=== PATIENT | female | born 1975 | race Caucasian/White ===

== ENCOUNTER 2020-10-29 08:00 | Outpatient (RCR) | payer OTHER, SELFPAY ==
--- NOTE | 2020-09-30 18:05 | MHC.PT.EP ---
[facility] [place] [facility] [place] [facility] [place] [facility] [address] Imer Gracia [address] [phone] F: [phone] F: [phone] F: [phone] F: [phone] Physical Therapy Plan of Care Date of Evaluation: 09/30/20 Date of Surgery: NA Diagnosis: This is a 44 yo female presenting to skilled PT with a script for L side sciatica, other muscle spasm. Assessment: This is a 44 yo female presenting to skilled PT for L side sciatica, other muscle spasm. This patient went to the walk in clinic on 09/23 with left sided lower back pain that radiated down the left L. Her pain at the time had been ongoing for 3 weeks without noted injury. She reports that she gets this pain almost every 4 months. She was self managing her symptoms with her exercises at home in the past but it is not helping now. At [facility], she has only L side low back pain and has not had leg pain for 3 weeks. Her pain is described as pins and needles. Denies changes in bowel, bladder. Her daughter is here today to assist with eval however patient speaks Hungarian well (ge[place]ian background). She has had PT in the past about 6 years ago that was helpful. Her pain comes and goes. Assessment demos pain that ranges 0-6/10 with certain movements. She demos decreased L hip and glut strength, decreased lumbar ROM and hamstring length, decreased functional transfers (can do so I but has pain), elevated paraspinals on the R and decreased lumbar joint mobility. Functionally, she has been having trouble with bending to don/doff socks/shoes, bending, lifting and walking. She is a good candidate for skilled PT 2x/wk for 6wks based on anatomy, physical impairments, age and PT findings. Frequency and Duration: The patient will be seen 2x/wk for 6wks Short Term Goals: I in HEP Patient will report centralization of pain Patient will demo proper gait pattern without pain Residential Goals: Patient will demo proper lifting and squatting techniques without pain Patient will report no more than 2/10 pain at the worst Patient will improve oswestry 10 points Treatment Plan: Modalities to reduce pain, spasms and effusion. Manual therapy to restore motion and function. Therapeutic exercise to improve strength and flexibility. Neuromuscular re-education for posture and balance. Therapeutic activities to return to functional activities of daily living. Please sign and return to therapist. Thank you for your referral.
--- NOTE | 2020-11-02 11:01 | MHC.PT.DC ---
[facility] [place] [facility] [place] [facility] [place] Office [address] [phone] F: [phone] F: [phone] F: [phone] F: [phone] Physical Therapy Discharge Report Diagnosis: This is a 44 yo female presenting to skilled PT with a script for L side sciatica, other muscle spasm. Date of Surgery: NA Date of Evaluation: 09/30/20 Date of Discharge: 11/02/20 Treatments to Date: 7 Cancellations to Date: 0 No Shows to Date: 0 Discharge Status: Achieved Goals Improved Function Independent with HEP Patient Elected to Stop Discharge Summary: Pt progressing well with core stab, strength and L/S mobility. Has HEP to continue on own at home. Demos good mobility, strength and pain management. DC to HEP at this time. Electronically signed by: Jessie Nelson PT Please sign and return to therapist. Thank you for your referral.
== END 2020-11-05 11:57 | disposition home or self-care (01) ==
LOC: HO.PTCHIC 08:00
PROVIDERS: Visit Provider Nurse Practitioner Family
DX: M54.32 Sciatica, left side (principal); M62.838 Other muscle spasm
CPT/HCPCS: 97110; 97112; 97140; 97161

== ENCOUNTER 2021-02-03 10:26 | Outpatient (REF) | payer OTHER, SELFPAY ==
[2021-02-03 11:08] LABS: MANUAL DIFF FLAG NO
[2021-02-03 11:29] LABS: Hematocrit 37.4 % (37-47); Hemoglobin 12.6 g/dl (12.0-16.0); Lymphocytes Absolute Auto 1.3 X10*3/uL (1.2-4.9); Lymphocytes Percent Auto 34.7 % (20-40); Mean Corpuscular HGB Conc 33.7 g/dl (31.0-35.0); Mean Corpuscular Hemoglobin 29.2 pg (27.0-33.0); Mean Corpuscular Volume 86.8 fL (80-98); Mean Platelet Volume 10.5 fL (9.4-12.3); Monocytes Absolute Auto 0.3 X10*3/uL (0.1-1.2); Monocytes Percent Auto 7.2 % (2-11); Neutrophils Absolute Auto 2.1 X10*3/uL (2.0-8.3); Neutrophils Percent Auto 58.1 % (45-73); Platelet Count 184 X10*3/uL (160-400); Red Blood Count 4.31 X10*6/uL (4.20-5.50); Red Cell Distribution Width 12.3 % (11.0-16.0); White Blood Count 3.6 X10*3/uL (4.8-10.8)
[2021-02-03 11:34] LABS: Glucose Urine UA NEG (NEG); Leukocyte Esterase Urine NEG (NEG); Nitrite Urine NEG (NEG); Urine Blood 1+ (NEG); Urine Ketones NEG (NEG); Urine Protein NEG (NEG-TRACE)
[2021-02-03 11:39] LABS: Appearance Urine HAZY; Color Urine YELLOW
[2021-02-03 11:49] LABS: Mucus Urine 1+ /LPF; Squamous Epithelial Cell Urine 1+ /LPF; WBC Urine 0 /HPF (0-4)
[2021-02-03 11:56] LABS: Alanine Aminotransferase 17 U/L (0-31); Albumin Level 4.3 g/dL (3.5-5.0); Alkaline Phosphatase 66 U/L (39-117); Anion Gap 10 (12-20); Aspartate Amino Transferase 14 U/L (5-31); Bilirubin Total 0.4 mg/dL (0.0-1.0); Blood Urea Nitrogen 11 mg/dL (9-16); Calcium 8.7 mg/dL (8.4-10.2); Carbon Dioxide 27 mmol/L (22-29); Chloride 106 mmol/L (96-108); Cholesterol 197 mg/dL; Estimated Glomerular Filt Rate > 60; Glucose Fasting 99 mg/dL (60-99); HDL Cholesterol 57 mg/dL; LDL Cholesterol Calculated 125 mg/dl; Sodium 139 mmol/L (135-145); Total Protein 6.8 g/dL (6.5-8.0); Triglycerides 78 mg/dL
== END 2021-02-03 10:27 | disposition home or self-care (01) ==
LOC: HO.HMGCLDS 10:26
PROVIDERS: PCP Internal Medicine; Visit Provider Internal Medicine
DX: Z00.00 Encounter for general adult medical examination without abnormal findings (principal)
CPT/HCPCS: 36415; 80053; 80061; 81001; 85025

== ENCOUNTER 2021-03-17 10:03 | Outpatient (REF) | payer OTHER, SELFPAY ==
[2021-03-19 17:46] LABS: HPV mRNA E6/E7 Not Detected (Not Detected)
== END 2021-03-17 10:04 | disposition home or self-care (01) ==
LOC: HO.LAB 10:03
PROVIDERS: Visit Provider Internal Medicine
DX: Z01.419 Encounter for gynecological examination (general) (routine) without abnormal findings (principal); Z11.51 Encounter for screening for human papillomavirus (HPV)
CPT/HCPCS: 87624; 88142

== ENCOUNTER 2021-04-08 15:24 | Outpatient (REF) | payer OTHER, SELFPAY ==
--- NOTE | ~2021-04-08 | MM_ITS ---
EXAMINATION: MM SCREENING DIGITAL BREAST TOMOSYNTHESIS, BILATERAL CLINICAL INFORMATION: Screening. Asymptomatic. The lifetime risk of breast cancer based on the Tyrer-Cuzick Model is 10.6%. COMPARISON: Mammography: October 24, 2014 TECHNIQUE: Digital breast tomosynthesis is performed in both the craniocaudal and mediolateral oblique views along with computer-aided detection (CAD). Synthesized 2D images are generated from the tomosynthesis. FINDINGS: The breasts are extremely dense, which lowers the sensitivity of mammography (ACR BI-RADS breast composition Category d). There are no significant masses, abnormal calcifications, or other abnormalities. MM/MM tomosynthesis screening BI IMPRESSION: There are no significant changes from prior study. ASSESSMENT: BI-RADS 1: Negative RECOMMENDATION: Routine annual mammography screening. This patient's information was entered into a reminder system with a target due date for their next mammogram.
== END 2021-04-08 15:25 | disposition home or self-care (01) ==
LOC: HO.MAMMO 15:24
PROVIDERS: Visit Provider Internal Medicine
DX: Z12.31 Encounter for screening mammogram for malignant neoplasm of breast (principal)
CPT/HCPCS: 77063; 77067

== ENCOUNTER 2021-08-26 14:32 | Outpatient (REF) | payer OTHER, SELFPAY ==
--- NOTE | ~2021-08-26 | XR_ITS ---
EXAMINATION: XR KNEE, LEFT CLINICAL INFORMATION: Left knee pain. COMPARISON: 05/15/19. TECHNIQUE: Four views of the left knee. FINDINGS: Bones and soft tissues are normal. No fracture or joint effusion. Alignment is anatomic. Joint spaces are well maintained. No abnormal soft tissue calcification. XR/XR knee LT 2V IMPRESSION: Normal left knee.
== END 2021-08-26 14:33 | disposition home or self-care (01) ==
LOC: HO.HMGCX 14:32
PROVIDERS: PCP Internal Medicine; Visit Provider Internal Medicine
DX: Z13.89 Encounter for screening for other disorder (principal)
CPT/HCPCS: 73560

== ENCOUNTER 2022-02-04 09:50 | Outpatient (REF) | payer OTHER, SELFPAY ==
[2022-02-04 11:47] LABS: Hematocrit 36.8 % (37.0-47.0); Hemoglobin 11.9 g/dl (12.0-16.0); Mean Corpuscular HGB Conc 32.3 g/dl (31.0-35.0); Mean Corpuscular Hemoglobin 28.4 pg (27.0-33.0); Mean Corpuscular Volume 87.8 fL (80.0-98.0); Mean Platelet Volume 11.5 fL (9.4-12.3); Platelet Count 181 X10*3/uL (160-400); Red Blood Count 4.19 X10*6/uL (4.20-5.50); Red Cell Distribution Width 13.1 % (11.0-16.0); White Blood Count 4.2 X10*3/uL (4.8-10.8)
[2022-02-04 11:50] LABS: Appearance Urine TURBID; Color Urine YELLOW; Glucose Urine UA NEG (NEG); Leukocyte Esterase Urine 2+ (NEG); Nitrite Urine NEG (NEG); Specific Gravity - Urine >= 1.030 (1.005-1.025); Urine Blood 2+ (NEG); Urine Ketones NEG (NEG); Urine Protein NEG (NEG-TRACE)
[2022-02-04 12:11] LABS: Amorphous Sediment Urine 4+ /LPF; Squamous Epithelial Cell Urine 1+ /LPF
[2022-02-04 12:22] LABS: Alanine Aminotransferase 14 U/L (0-31); Albumin Level 4.3 g/dL (3.5-5.0); Alkaline Phosphatase 52 U/L (39-117); Anion Gap 10 (12-20); Aspartate Amino Transferase 15 U/L (5-31); Bilirubin Total 0.6 mg/dL (0.0-1.0); Blood Urea Nitrogen 15 mg/dL (9-16); Calcium 9.1 mg/dL (8.4-10.2); Carbon Dioxide 26 mmol/L (22-29); Chloride 107 mmol/L (96-108); Cholesterol 174 mg/dL; Estimated Glomerular Filt Rate > 60; Glucose Fasting 90 mg/dL (60-99); HDL Cholesterol 56 mg/dL; LDL Cholesterol Calculated 107 mg/dl; Potassium 3.9 mmol/L (3.3-5.1); Sodium 139 mmol/L (135-145); Total Protein 7.1 g/dL (6.5-8.0); Triglycerides 59 mg/dL
== END 2022-02-04 09:51 | disposition home or self-care (01) ==
LOC: HO.HMGCLDS 09:50
PROVIDERS: PCP Internal Medicine; Visit Provider Internal Medicine
DX: Z00.00 Encounter for general adult medical examination without abnormal findings (principal)
CPT/HCPCS: 36415; 80053; 80061; 81001; 85027

== ENCOUNTER 2022-12-27 13:24 | Outpatient (REF) | payer OTHER, SELFPAY ==
--- NOTE | ~2022-12-27 | MM_ITS ---
EXAMINATION: MM DIAGNOSTIC DIGITAL BREAST TOMOSYNTHESIS, BILATERAL US DIAGNOSTIC ULTRASOUND BREAST, RIGHT CLINICAL INFORMATION: 47-year-old with chronic palpable fullness noted by patient posterior upper outer right breast. Due for yearly. No known family history breast cancer. The lifetime risk of breast cancer based on the Tyrer-Cuzick Model is 11%. COMPARISON: Mammography: 04/26/2021; outside mammography 10/24/2014 ([facility]) TECHNIQUE: Digital breast tomosynthesis is performed in both the craniocaudal and mediolateral oblique views along with computer-aided detection (CAD). Synthesized 2D images are generated from the tomosynthesis. Ultrasound right breast is targeted to the area of clinical concern upper outer quadrant. Patient is imaged supine as well as sitting upright. Patient is able to point to area of concern at time of imaging. Additional imaging also performed to assess smooth benign-appearing nodule mid outer right breast. Grayscale imaging and color Doppler are performed without and with harmonics. FINDINGS: The breasts are heterogeneously dense, which may obscure small masses (ACR BI-RADS breast composition Category c). The parenchymal pattern appears similar to prior exam. There is no architectural abnormality or abnormal calcifications. There is no mammographic correlate for patient's clinical palpable concern. The axilla and skin contours are unremarkable. The left breast is unremarkable. Right breast has a circumscribed benign-appearing 1 cm oval nodule 9:00-10:00 position 4 cm from nipple, in retrospect likely chronic and partly obscured on prior mammogram. Ultrasound posterior upper outer right breast in the area of clinical palpable concern demonstrates macrolobulated hypoechoic mass posterior upper outer quadrant 7-8 cm from nipple and measuring 2.0 x 0.7 x 1.2 cm. There is no increased or decreased through transmission of sound. No definite associated color flow. Additional imaging in area of smooth benign-appearing nodule mid outer right breast fails to reveal a definite ultrasound correlate. Results are discussed with the patient at time of visit. Ultrasound-guided core biopsy of the ultrasound correlate for the palpable lesion is recommended. Finding may represent fibroadenoma, PASH, other lesion. The benign-appearing nodule mid outer right breast may be reassessed with imaging in 6 months. Results and recommendation are called to office ([facility]) for Dr. Lockett on 12/27/2022. MM/MM tomosynthesis diagnostic BI IMPRESSION: Right: -Macrolobulated nodule on targeted ultrasound corresponding to area of palpable concern measuring approximately 2.0 x 0.7 x 1.2 cm. Recommend ultrasound-guided core biopsy. -Smooth oval benign-appearing nodule more anterior lateral right breast without definite ultrasound correlate, likely chronic. Recommend follow-up mammography in 6 months. Left: -No mammographic evidence of malignancy. ASSESSMENT: BI-RADS 4: Suspicious RECOMMENDATION: -Ultrasound-guided core biopsy right breast mass. -Follow-up mammography in 6 months for probable benign nodule more anterior right breast. This patient's information was entered into a reminder system with a target due date for their next mammogram.
== END 2022-12-27 13:25 | disposition home or self-care (01) ==
LOC: HO.MAMMO 13:24
PROVIDERS: Visit Provider Obstetrics & Gynecology
DX: N63.11 Unspecified lump in the right breast, upper outer quadrant (principal)
CPT/HCPCS: 76642; 77062; 77066

== ENCOUNTER 2023-01-03 09:24 | Outpatient (REF) | payer OTHER, SELFPAY ==
--- NOTE | ~2023-01-03 | MM_ITS ---
PROCEDURE: US GUIDED BREAST BIOPSY, RIGHT CLINICAL INFORMATION: Hypoechoic lesion 10:00 position 9 cm from the nipple. COMPARISON: December 27, 2022 and April 08, 2021 PROCEDURAL DETAILS: The details of the procedure, as well as the risks, benefits, and alternatives to the procedure were explained to the patient in detail and all of her questions were answered, after which written informed consent was obtained. Site and side were confirmed. Prior to the procedure, sonography revealed a hypoechoic circumscribed lesion 10:00 position 9 cm from the nipple.. A time-out was performed, the lesion intended for biopsy was targeted, and the skin of the right breast was then prepped and draped in the usual sterile fashion. Using sonographic guidance, sterile technique, and 1% lidocaine without epinephrine for local anesthesia, multiple automated core biopsies were obtained through the targeted area with a 14G spring loaded Achieve core biopsy device. There was real-time confirmation of appropriate needle passage. Sampling was documented. At the completion of tissue sampling, a single open coil-shaped metallic clip was deposited at the biopsy site. There was no evidence of immediate complication. SPECIMEN: An appropriate sample was obtained. DIGITAL POST-PROCEDURE MAMMOGRAPHY: Breast density: The tissue is heterogeneously dense which may obscure small masses. BI-RADS version 5, category C. There are no new mammographic findings demonstrated. The postprocedure 2-view direct digital mammogram reveals clip in place. The patient tolerated the procedure well and, after assuring adequate hemostasis, was discharged in good condition after reviewing postbiopsy breast care instructions. Final pathology results are pending. MM/MM tomosynthesis diagnostic RT IMPRESSION: 1. No immediate complication from ultrasound-guided percutaneous biopsy right breast. 2. Ultrasound was used to localize and guide marker clip placement. 3. The 2-view direct digital postprocedure mammogram reveals satisfactory positioning of the biopsy clip. 4. Final pathology results are pending. A separate report with final recommendations will be issued once these results are made available.
[2023-01-03] MEDS: Lidocaine HCl 1 % 20 ML VIAL 10 ML SUBCUT (11:05)
== END 2023-01-03 09:25 | disposition home or self-care (01) ==
LOC: HO.MAMMO 09:24
PROVIDERS: PCP Internal Medicine; Visit Provider Surgery
DX: R92.8 Other abnormal and inconclusive findings on diagnostic imaging of breast (principal)
CPT/HCPCS: 19083; 77061; 77065; 88305; 99202; A4648

== ENCOUNTER → 2023-01-10 10:39 | Outpatient (BNVA) | payer OTHER, SELFPAY | PROVIDERS: PCP Internal Medicine; Visit Provider Surgery | DX: R92.8 Other abnormal and inconclusive findings on diagnostic imaging of breast (principal) | CPT/HCPCS: 99212 ==

== ENCOUNTER 2023-02-14 08:26 | Outpatient (REF) | payer OTHER, SELFPAY ==
[2023-02-14 11:38] LABS: Appearance Urine Clear; Color Urine Yellow; Glucose Urine UA Negative (Negative); Leukocyte Esterase Urine Small (1+) (Negative); Nitrite Urine Negative (Negative); Specific Gravity - Urine 1.025 (1.005-1.025); UMIC TRIGGER UA YES; Urine Blood Negative (Negative); Urine Ketones Negative (Negative); Urine Protein Negative (Neg-Trace)
[2023-02-14 11:44] LABS: MANUAL DIFF FLAG NO
[2023-02-14 11:48] LABS: Basophils Percent Auto 0.5 % (0-2); Eosinophils Absolute Auto 0.1 X10*3/uL (0.0-0.4); Eosinophils Percent Auto 1.5 % (0-4); Hematocrit 37.2 % (37.0-47.0); Hemoglobin 11.7 g/dl (12.0-16.0); Lymphocytes Absolute Auto 1.2 X10*3/uL (1.2-4.9); Lymphocytes Percent Auto 29.6 % (20-40); Mean Corpuscular HGB Conc 31.5 g/dl (31.0-35.0); Mean Corpuscular Hemoglobin 26.5 pg (27.0-33.0); Mean Corpuscular Volume 84.4 fL (80.0-98.0); Mean Platelet Volume 11.2 fL (9.4-12.3); Monocytes Absolute Auto 0.3 X10*3/uL (0.1-1.2); Monocytes Percent Auto 8.2 % (2-11); Neutrophils Absolute Auto 2.4 x10*3/uL (2.0-8.3); Neutrophils Percent Auto 60.2 % (45-73); Platelet Count 184 X10*3/uL (160-400); Red Blood Count 4.41 X10*6/uL (4.20-5.50)
[2023-02-14 11:58] LABS: Bacteria Urine None Seen (None Seen); Hyaline Casts Urine 0-2 /LPF (0-2); RBC Urine 0-2 /HPF (0-2); Squamous Epithelial Cell Urine 0-2 /HPF (0-2); WBC Urine 0-5 /HPF (0-5)
[2023-02-14 12:27] LABS: Alanine Aminotransferase 15 U/L (0-31); Albumin Level 4.3 g/dL (3.5-5.0); Alkaline Phosphatase 48 U/L (39-117); Anion Gap 10 (12-20); Aspartate Amino Transferase 15 U/L (5-31); Bilirubin Total 0.6 mg/dL (0.0-1.0); Blood Urea Nitrogen 11 mg/dL (9-16); Calcium 9.1 mg/dL (8.4-10.2); Carbon Dioxide 25 mmol/L (22-29); Chloride 108 mmol/L (96-108); Cholesterol 188 mg/dL; Estimated Glomerular Filt Rate > 60; Glucose Fasting 96 mg/dL (60-99); HDL Cholesterol 56 mg/dL; LDL Cholesterol Calculated 116 mg/dl; Potassium 4.3 mmol/L (3.3-5.1); Sodium 139 mmol/L (135-145); Total Protein 6.8 g/dL (6.5-8.0); Triglycerides 82 mg/dL
[2023-02-16 06:04] LABS: Triiodothyronine T3 Free 3.1 pg/mL (2.3-4.2)
== END 2023-02-14 08:27 | disposition home or self-care (01) ==
LOC: HO.HMGCLDS 08:26
PROVIDERS: PCP Internal Medicine; Visit Provider Internal Medicine
DX: Z00.00 Encounter for general adult medical examination without abnormal findings (principal); E05.00 Thyrotoxicosis with diffuse goiter without thyrotoxic crisis or storm; A04.8 Other specified bacterial intestinal infections; Z12.4 Encounter for screening for malignant neoplasm of cervix
CPT/HCPCS: 36415; 80053; 80061; 81001; 84443; 84481; 85025; 87338

== ENCOUNTER 2023-03-30 10:21 | Outpatient (REF) | payer OTHER, SELFPAY ==
--- NOTE | ~2023-03-30 | US_ITS ---
EXAMINATION: US THYROID CLINICAL INFORMATION: Nontoxic goiter COMPARISON: Ultrasound soft tissue head/neck thyroid dated 05/04/2017. TECHNIQUE: Linear transducer grayscale and color Doppler examination with attention to the region of the thyroid. FINDINGS: SIZE: Measurements of the thyroid lobes and nodules are given in sagittal, anteroposterior and transverse dimensions respectively. Right Thyroid Lobe: 5.7 x 2.4 x 2.2 cm, volume 15.8 mL. Previously 6.1 x 2.3 x 2.5 cm, volume 17.6 mL. Parenchyma: The gland echotexture is heterogeneous. Thyroid vascularity is increased. Left Thyroid Lobe: 4.8 x 1.6 x 1.6 cm, volume 6.4 mL. Previously 4.9 x 1.7 x 1.8 cm, volume 7.5 mL. Parenchyma: The gland echotexture is homogeneous. Thyroid vascularity is normal. Isthmus: 0.5 cm in maximum AP dimension. Previously 0.5 cm. No focal thyroid nodule is seen. NODES: No lymphadenopathy is seen in the tissue surrounding the thyroid gland. US/US thyroid IMPRESSION: 1. There is an asymmetric goiter, right lobe greater than left. 2. There is heterogeneous thyroid echotexture and increase in vascularity, which can be associated with thyroiditis. ACR TI-RADS RECOMMENDATION REFERENCE: Ultrasound-guided fine-needle aspiration, followup ultrasound, no further follow up. * TR1 (0 point) and TR2 (2 points): No FNA or follow up * TR3 (3 points): FNA if more than or equal to 2.5 cm in maximum dimension, followup ultrasound in 1, 3 and 5 years if 1.5 to 2.4 cm in maximum dimension. * TR4 (4-6 points): FNA if more than or equal to 1.5 cm in maximum dimension, followup ultrasound in 1, 2, 3 and 5 years if 1 to 1.4 cm in maximum dimension. * TR5 (more than or equal to 7 points): FNA if more than or equal to 1 cm in maximum dimension, followup ultrasound every year for 5 years if 0.5 to 0.9 cm in maximum dimension. * TR3, TR4 or TR5 nodules that are below the size threshold for follow up receive no follow up.
== END 2023-03-30 10:22 | disposition home or self-care (01) ==
LOC: HO.US 10:21
PROVIDERS: PCP Internal Medicine; Visit Provider Internal Medicine
DX: E04.9 Nontoxic goiter, unspecified (principal)
CPT/HCPCS: 76536

== ENCOUNTER → 2023-08-02 15:00 | Outpatient (BNV) | payer OTHER, SELFPAY | PROVIDERS: Visit Provider Radiology Diagnostic Radiology | DX: D24.1 Benign neoplasm of right breast (principal) | CPT/HCPCS: 76642; 77061; 77065 ==

== ENCOUNTER 2023-08-02 15:17 | Outpatient (REF) | payer OTHER, SELFPAY ==
--- NOTE | ~2023-08-02 | MM_ITS ---
EXAMINATION: MM DIAGNOSTIC DIGITAL BREAST TOMOSYNTHESIS, RIGHT US BREAST LIMITED, RIGHT MAMMOGRAPHY: CLINICAL INFORMATION: 6 month follow-up after benign biopsy right breast axillary tail region relating to fibroadenoma. COMPARISON: Mammography: Numerous priors, 01/03/2023, dating back to 12/27/2022. Right breast ultrasound biopsy to 01/03/2023. TECHNIQUE: Digital breast tomosynthesis is performed in both the craniocaudal and mediolateral oblique views along with computer-aided detection (CAD). Synthesized 2D images are generated from the tomosynthesis. FINDINGS: There are scattered areas of fibroglandular density (ACR BI-RADS breast composition Category b). There are no suspicious masses, suspicious grouped calcifications, or areas of architectural distortion. The parenchymal pattern is stable from prior exams. There is a biopsy clip in the far outer right breast, posterior one third, slightly upper location from benign biopsy. The index mass which was biopsied cannot be well distinguished on mammography. Ultrasound will be performed. ULTRASOUND: CLINICAL INFORMATION: Follow-up benign biopsy right axillary tail region. COMPARISON: 12/27/2022. TECHNIQUE: Targeted sonographic evaluation was performed using a high frequency linear transducer. Attention was paid specifically to the 10:00 axis, a CM from the nipple. Selected archived documentation. FINDINGS: RIGHT BREAST: There is a lobular hypoechoic mass in the right breast at the 10:00 axis, 8 cm from the nipple, containing an internal hyperechoic biopsy clip. This mass measures 1.6 x 1.4 x 0.6 cm. It correlates well with the abnormality seen on mammography. It is actually slightly smaller than previously, likely reflecting hormonal or biopsy related changes. Finding is benign. No further follow-up recommended. MM/MM tomosynthesis diagnostic RT IMPRESSION: Benign findings right breast. No further follow-up recommended. Recommend the patient return to annual screening. OVERALL ASSESSMENT: Mammography: BI-RADS 2 - Benign Findings Ultrasound: BI-RADS 2 - Benign Findings RECOMMENDATION: 1 year F/U Results were provided to the patient at time of visit by the technologist. This patient's information was entered into a reminder system with a target due date for their next mammogram.
== END 2023-08-02 15:18 | disposition home or self-care (01) ==
LOC: HO.MAMMO 15:17
PROVIDERS: Visit Provider Surgery
DX: R92.8 Other abnormal and inconclusive findings on diagnostic imaging of breast (principal)
CPT/HCPCS: 76642; 77061; 77065

== ENCOUNTER 2023-12-04 13:49 | Outpatient (AMB) | payer OTHER, SELFPAY ==
--- NOTE | 2023-12-04 13:55 | A.OFFPC_ITS ---
Vital Signs 12/04/23 13:57 Height 5 ft 3 in Weight 156 lb BMI 27.6 BP 138/78 Blood Pressure Location Lt brachial Position Sitting Pulse 113 H Pulse Source Pulse Oximeter Pulse Oximetry (%) 98 Oxygen Delivery Method Room Air Intake Visit Reasons: abdominal pain Intake Note: Pt is here today for a sick visit. Pt c/o abdominal pain. Pt states that she had polyp removed last year. Allergies No Known Allergies [No Known Allergies*] Allergy (Verified 12/04/23 13:57) Medication List - Last Reconciled 12/04/23 by Jany Lockett MD amoxicillin 1,000 mg (2 x 500 mg) PO Q12H 14 days clarithromycin 500 mg PO BID 14 days lorazepam 0.5 mg PO DAILY PRN metronidazole 500 mg PO BID omeprazole 20 mg PO BID Tobacco use date assessed: 12/04/23 Dental Screening Dental Screen Date: 12/04/23 Did you have a dental visit in the last 12 months?: Yes Did you have a dental problem in the last 6 months where you did not have access to dental care?: No Was dental information given to patient?: Patient has dentist HPI abdominal pain HPI Details Pt c/o lower abd pain for 2 months, crampy, constipation on and off, getting worse over last 2 weeks. Patient denies hematochezia melena nausea vomit fever chills dysuria but noticed increased urinary frequency. Patient reports difficulty swallowing and odynophagia when eating peanuts or some solids. She had thyroid ultrasound done by residential electrician in May and was told it was normal. Patient denies GERD symptoms. She took H pylori treatment with amoxicillin clarithromycin and metronidazole for 5 days only but developed diarrhea and discontinued medications. [facility] Medical History Allergic rhinitis Annual physical exam Dysplastic nevi Gastritis Graves disease Helicobacter pylori gastritis Knee pain, left Normal Pap smear Palpitations Family History (Updated 02/14/23 @ 09:14 by MIKEY Vásquez) Father No problems noted. Mother No problems noted. 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 1. Little interest or pleasure in doing things: not at all 2. Feeling down, depressed, or hopeless: not at all 3. Trouble falling or staying asleep, or sleeping too much: not at all 4. Feeling tired or having little energy: not at all 5. Poor appetite or overeating: not at all 6. Feeling bad about yourself - or that you are a failure or have let yourself or your family down: not at all 7. Trouble concentrating on things, such as reading the newspaper or watching television: not at all 8. Moving or speaking so slowly that other people could have noticed. Or the opposite - being so fidgety or restless that you have been moving around a lot more than usual: not at all 9. Thoughts that you would be better off or of hurting yourself in some way: not at all Total score: 0 Depression Screening Interpretation: Negative Depression Screening Done: Yes Source: Developed by Drs. Sb Esparza, Breanna Echavarria, Justin Gamez and colleagues, with an educational damion from [employer]. Thrive Questionnaire Date Thrive assessed: 12/04/23 I am a: Patient What is your living situation today?: I have a steady place to live Within the past 12 months, did the food you bought not last and you didn't have the money to get more?: Never true Within the past 12 months, did you worry whether your food would run out before you got money to buy more?: Never true Do you have trouble paying for medicines?: No Do you have trouble getting transportation to medical appointments?: No Do you have trouble paying your heating and electricity bill?: No Do you have trouble taking care of your child, family member or friend?: No Do you have trouble with day-to-day activities such as bathing, preparing meals, shopping, managing finances, etc.?: No Are you currently unemployed and looking for a job?: No Are you interested in more education?: No Please select the resources that you would like help with: None Currently or been in a relationship where the following occur: no concerns reported AUDIT C Alcohol Use Questionnaire (AUDIT-C) 1. How often do you have a drink containing alcohol?: Never 3. How often do you have six or more drinks on one occasion?: Never Total Score: 0 AMIRA-7 AMB Questionnaire AMIRA-7 Date AMIRA - 7 assessed: 12/04/23 Feeling nervous, anxious, or on edge: 0 = Not at all Not being able to stop or control worryin = Not at all Worrying too much about different things: 0 = Not at all Trouble relaxin = Not at all Being so restless that it is hard to sit still: 0 = Not at all Becoming easily annoyed or irritable: 0 = Not at all Feeling afraid as if something awful might happen: 0 = Not at all Total AMIRA-7 score (0-4 normal; 5-9 mild; 10-14 moderate; 15-21 severe): 0 Source: Developed by Drs. Sb Esparza, Breanna Echavarria, Justin Gamez and colleagues, with an educational damion from [employer]. Review of Systems Const All systems reviewed & are unremarkable except as noted in HPI and below Reports no additional complaints Eyes Reports no additional complaints ENT Reports no additional complaints Card Reports no additional complaints Resp Reports no additional complaints GI Reports no additional complaints Reports no additional complaints Physical exam (Primary Care) Vital Signs: Last Vital Signs Pulse 113 H 12/04/23 13:57 BP 138/78 12/04/23 13:57 Pulse Ox 98 12/04/23 13:57 Oxygen Delivery Method Room Air 12/04/23 13:57 BMI result Body Mass Index 27.6 Tobacco/Smoking Status: Tobacco use Status Tobacco use date assessed 12/04/23 12/04/23 14:00 Patient Tobacco Use Status Never used Tobacco 12/04/23 14:00 e-Cigarette/Vaping Use Never Used 12/04/23 13:57 PHQ-9: PHQ-9 Score PHQ-9: Total score 0 12/04/23 14:31 Depression Screening Interpretation: Negative Thrive Assessment: Date of Thrive Assessment Date Thrive assessed 12/04/23 12/04/23 14:00 Currently or been in a relationship where the following occur: no concerns reported Const General: no acute distress HENMT Head: Yes normal to inspection Face and sinus: Yes normal facial exam Eyes General: appearance normal, both eyes and all related structures Neck Neck: Yes no lymphadenopathy and Yes supple Resp Effort & Inspection: normal respiratory effort Auscultation: clear to auscultation bilaterally Cardio Rhythm: regular rhythm Heart sounds: S1 normal heart sound present and S2 normal heart sound present GI Other: Left lower quadrant tenderness no rebound or guarding Inspection: Yes normal to inspection Palpation (GI): Soft to palpation Percussion: Yes normal to percussion Auscultation: normal bowel sounds Assessment and Plan Assessment & Plan (1) Odynophagia: Code(s): R13.10 - Dysphagia, unspecified Plan: Obtain barium swallow to evaluate. Patient had normal EGD in January 2019 (2) Diverticulitis: Code(s): K57.92 - Diverticulitis of intestine, part unspecified, without perforation or abscess without bleeding Plan: Obtain abdominal and pelvic CT to evaluate for diverticulitis. Patient will return for fasting blood work, urinalysis and urine culture. She will follow-up in 1 month (3) H. pylori infection: Comment: Diagnosed on endoscopy 2018, patient took amoxicillin clarithromycin metronidazole for 5 days, 07/2023, could not tolerate longer treatment because of diarrhea Code(s): A04.8 - Other specified bacterial intestinal infections Plan: Obtain stool studies for H pylori (4) Graves disease: Comment: f/u with Endo , off meds , TSH Q 3 months 02/15 Code(s): E05.00 - Thyrotoxicosis with diffuse goiter without thyrotoxic crisis or storm Plan: Check TSH, follow-up with endocrinology (5) Hx of colonoscopy: Comment: 01/2019, normal Dr. Greer Code(s): Z98.890 - Other specified postprocedural states Orders: Orders [place] upper GI w Ba Swallow Today R13.10 - Dysphagia, unspecified CT abdomen pelvis wo IV con Today K57.92 - Diverticulitis of intestine, part unspecified, without perforation or abscess without bleeding Coding Level of Care Code Est Pt Level 4 (85123) Diagnoses Odynophagia R13.10 Diverticulitis K57.92 H. pylori infection A04.8 Graves disease E05.00 Hx of colonoscopy Z98.890
[2023-12-04 13:57] VITALS: BP 138/78; PULSE 113; O2SAT 98; BMI 27.6
== END 2023-12-04 14:55 | disposition home or self-care (01) ==
PROVIDERS: PCP Internal Medicine; Visit Provider Internal Medicine
DX: R13.10 Dysphagia, unspecified (principal); K57.92 Diverticulitis of intestine, part unspecified, without perforation or abscess without bleeding; A04.8 Other specified bacterial intestinal infections; E05.00 Thyrotoxicosis with diffuse goiter without thyrotoxic crisis or storm; Z98.890 Other specified postprocedural states
CPT/HCPCS: 99214

== ENCOUNTER 2023-12-05 11:19 | Outpatient (REF) | payer OTHER, SELFPAY ==
--- NOTE | ~2023-12-05 | CT_ITS ---
EXAMINATION: CT ABDOMEN AND PELVIS WITH CONTRAST CLINICAL INFORMATION: Diverticulitis of colon. Abdominal pain. COMPARISON: None available. TECHNIQUE: Multidetector volumetric images were obtained from the superior aspect of the liver through the pubic symphysis following administration 85 mL of Omnipaque 350 intravenous contrast. Sagittal and coronal reformatted images were obtained on the technologist's workstation. Oral contrast: No This CT examination was performed using dose optimization techniques as appropriate, variously including the following: *Automated exposure control *Adjustment of mA and/or kV according to patient size (this includes techniques or standardized protocols for targeted exams where dose is matched to indication/reason for exam; i.e. extremities or head) *Use of iterative reconstruction technique DLP: 304 mGy-cm FINDINGS: LUNG BASES: The lung bases are clear. The heart size is normal. LIVER, GALLBLADDER, AND BILIARY TREE: The liver is normal in size, shape, and attenuation. No focal hepatic lesion or biliary ductal dilatation is present. The gallbladder is unremarkable with no evidence of radiopaque gallstones, gallbladder wall thickening, or obvious pericholecystic inflammatory changes. PANCREAS: Unremarkable. SPLEEN: The spleen is 12 cm in length and appears unremarkable. ADRENAL GLANDS: Unremarkable. KIDNEYS AND URETERS: The kidneys are normal in size, shape, and attenuation. No hydronephrosis, hydroureter, or calculi seen. No perinephric stranding. BLADDER: Unremarkable. GASTROINTESTINAL TRACT: Scattered stool and gas and oral contrast seen throughout the colon without distention. The small bowel loops are normal caliber. Appendix is long but normal caliber. The stomach is nondistended with oral contrast and ingested food. ABDOMINAL WALL: No significant hernia is appreciated. LYMPH NODES: Normal. VASCULAR: Unremarkable. PELVIC VISCERA: The uterus is retroverted with bilateral ovarian cysts and minimal left periovarian fluid collection right ovarian cyst is bilobed with a larger component measuring 2.8 cm and the left ovarian cyst measures 3.4 cm. There is no free fluid in the cul-de-sac. There is a small hypodensity anterior to the left hip joint in the iliopsoas muscle question ileus was bursitis. OSSEOUS STRUCTURES: No aggressive lytic or sclerotic process. CT/CT abdomen pelvis w IV con IMPRESSION: 1. No acute intra-abdominal process seen. 2. Mild constipation. Normal appendix. 3. Retroverted uterus with bilateral ovarian cysts. 4. Left iliopsoas bursitis Fleischner guidelines were followed.
[2023-12-05 13:37] LABS: Blood Urea Nitrogen 12 mg/dL (9-16); Estimated Glomerular Filt Rate > 60
[2023-12-05] MEDS: Barium Sulfate Oral (Berry) 450 ML ORAL.SUSP 900 ML PO (13:45)
[2023-12-05] MEDS: iohexoL 350 MG/ML 100 ML INFUS..BTL IV (13:46)
== END 2023-12-05 11:20 | disposition home or self-care (01) ==
LOC: HO.CT 11:19
PROVIDERS: PCP Internal Medicine; Visit Provider Internal Medicine
DX: K57.92 Diverticulitis of intestine, part unspecified, without perforation or abscess without bleeding (principal)
CPT/HCPCS: 36415; 74177; 82565; 84520; Q9967

== ENCOUNTER 2023-12-26 07:59 | Outpatient (REF) | payer OTHER, SELFPAY ==
--- NOTE | ~2023-12-26 | FL_ITS ---
EXAMINATION: FL BARIUM SWALLOW CLINICAL INFORMATION: Dysphagia/globus sensation. History of thyroidectomy COMPARISON: None TECHNIQUE: Fluoroscopic air contrast upper GI examination was performed utilizing standard techniques with thin and thick barium and effervescent granules. Numerous spot images were obtained. FINDINGS: Lateral cine images of the oropharynx and hypopharynx demonstrate normal swallow mechanism with normal epiglottic inversion and soft palate elevation. No tracheal penetration, glottic or subglottic aspiration identified. No nasopharyngeal reflux present. Hypopharyngeal structures appear normal without evidence of mass or diverticulum. There was no significant cricopharyngeal achalasia. Dual and single contrast images of the esophagus demonstrate normal caliber, contour, and mucosal pattern. No evidence of stricture, mass, or ulcerations identified. Esophageal peristalsis was normal. No evidence of hiatus hernia identified. No significant gastroesophageal reflux was seen during the course of the examination and on reflux views. FLUOROSCOPY TIME: 2 minutes 22 seconds Number of Spot Images: 5 Number of Cine: 6 DOSE AREA PRODUCT: 968.9 uGy-m2 (microgray-meter squared) FL/FL upper GI w Ba Swallow IMPRESSION: Unremarkable esophagram This procedure was performed by Almas Ramirez PA-C, and supervised by Dr. Urbina
== END 2023-12-26 08:00 | disposition home or self-care (01) ==
LOC: HO.XRAY 07:59
PROVIDERS: PCP Internal Medicine; Visit Provider Internal Medicine
DX: R13.10 Dysphagia, unspecified (principal)
CPT/HCPCS: 74240

== ENCOUNTER → 2023-12-26 08:00 | Outpatient (BNV) | payer OTHER, SELFPAY | PROVIDERS: PCP Internal Medicine; Visit Provider Radiology Diagnostic Radiology | DX: R13.10 Dysphagia, unspecified (principal) | CPT/HCPCS: 74246 ==

== ENCOUNTER 2024-02-19 07:53 | Outpatient (AMB) | payer OTHER, SELFPAY ==
[2024-02-19 07:58] VITALS: BP 124/80; PULSE 92; O2SAT 99; BMI 28.7
--- NOTE | 2024-02-19 07:58 | A.OFFPC_ITS ---
Vital Signs 02/19/24 07:58 Height 5 ft 3 in Weight 162 lb BMI 28.7 BP 124/80 Blood Pressure Location Lt brachial Position Sitting Pulse 92 Pulse Source Pulse Oximeter Pulse Oximetry (%) 99 Oxygen Delivery Method Room Air Intake Visit Reasons: Annual PE Intake Note: Pt is here today for PE. Allergies No Known Allergies [No Known Allergies*] Allergy (Verified 02/19/24 07:59) Medication List - Last Reconciled 02/19/24 by Jany Lockett MD lorazepam 0.5 mg PO DAILY PRN Tobacco use date assessed: 02/19/24 Dental Screening Dental Screen Date: 02/19/24 Did you have a dental visit in the last 12 months?: Yes Did you have a dental problem in the last 6 months where you did not have access to dental care?: No Was dental information given to patient?: Patient has dentist HPI Annual PE HPI Details Patient presents for physical. She complains of persistent sweet taste in her mouth for 6 months and episodes of upper esophageal dysphagia after eating a piece of dry bread or nuts. Patient had normal esophagram. She denies abdominal pain nausea vomiting. Patient did not complete a course of antibiotic treatment for H pylori and has not done a stool antigen test yet. [facility] Medical History Allergic rhinitis Annual physical exam Dysplastic nevi Gastritis Graves disease Helicobacter pylori gastritis Knee pain, left Normal Pap smear Palpitations Family History Father No problems noted. Mother No problems noted. 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 How often do you have a drink containing alcohol?: Never 3. How often do you have six or more drinks on one occasion?: Never Total Score: 0 AMIRA-7 AMB Questionnaire AMIRA-7 Date AIMRA - 7 assessed: 12/04/23 Source: Developed by Drs. Sb Esparza, Breanna Echavarria, Justin Gamez and colleagues, with an educational damion from [employer]. Review of Systems Const All systems reviewed & are unremarkable except as noted in HPI and below Reports no additional complaints Eyes Reports no additional complaints ENT Reports no additional complaints Card Reports no additional complaints Resp Reports no additional complaints GI Reports no additional complaints Reports no additional complaints Physical exam (Primary Care) Vital Signs: Last Vital Signs Pulse 92 02/19/24 07:58 BP 124/80 02/19/24 07:58 Pulse Ox 99 02/19/24 07:58 Oxygen Delivery Method Room Air 02/19/24 07:58 BMI result Body Mass Index 28.7 Tobacco/Smoking Status: Tobacco use Status Tobacco use date assessed 02/19/24 02/19/24 08:07 Patient Tobacco Use Status Never used Tobacco 02/19/24 08:07 e-Cigarette/Vaping Use Never Used 02/19/24 08:07 Thrive Assessment: Date of Thrive Assessment Date Thrive assessed 12/04/23 02/19/24 08:07 Const General: no acute distress HENMT Head: Yes normal to inspection Ears: hearing grossly normal bilaterally General nose exam: Normal external nose present Mouth: Normal oral and palatal mucosa present Throat: Yes posterior oropharynx normal Eyes General: appearance normal, both eyes and all related structures Neck Neck: Yes no lymphadenopathy and Yes supple Resp Effort & Inspection: normal respiratory effort Auscultation: clear to auscultation bilaterally Cardio Rhythm: regular rhythm Heart sounds: S1 normal heart sound present and S2 normal heart sound present GI Inspection: Yes normal to inspection Palpation (GI): Soft to palpation Percussion: Yes normal to percussion Auscultation: normal bowel sounds Assessment and Plan Assessment & Plan (1) H. 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 she is up-to-date with the mammogram colonoscopy and Pap smear Orders: Orders Comprehensive [place]. Panel Fast Today R13.13 - Dysphagia, pharyngeal phase, Z00.00 - Encounter for general adult medical examination without abnormal findings Complete Blood Count Auto Diff Today R13.13 - Dysphagia, pharyngeal phase, Z00.00 - Encounter for general adult medical examination without abnormal findings Lipid Panel Today R13.13 - Dysphagia, pharyngeal phase, Z00.00 - Encounter for general adult medical examination without abnormal findings H pylori Ag Stool Today A04.8 - Other specified bacterial intestinal infections, N83.209 - Unspecified ovarian cyst, unspecified side UA w Microscopic Today R13.13 - Dysphagia, pharyngeal phase, Z00.00 - Encounter for general adult medical examination without abnormal findings Referrals Gastroenterology Referral R13.13 - Dysphagia, pharyngeal phase, Z00.00 - Encounter for general adult medical examination without abnormal findings Ear/Nose/Throat Referral R13.13 - Dysphagia, pharyngeal phase, Z00.00 - Encounter for general adult medical examination without abnormal findings Coding Level of Care Code Est Pt Prev Care 40-64y(35183) Diagnoses H. pylori infection A04.8 Ovarian cyst N83.209 Pharyngeal dysphagia R13.13 Annual physical exam Z00.00
== END 2024-02-19 09:47 | disposition home or self-care (01) ==
PROVIDERS: Visit Provider Internal Medicine
DX: Z00.00 Encounter for general adult medical examination without abnormal findings (principal); A04.8 Other specified bacterial intestinal infections; N83.209 Unspecified ovarian cyst, unspecified side; R13.13 Dysphagia, pharyngeal phase
CPT/HCPCS: 99396

== ENCOUNTER 2024-02-19 08:51 | Outpatient (REF) | payer OTHER, SELFPAY ==
[2024-02-19 11:18] LABS: MANUAL DIFF FLAG NO
[2024-02-19 11:33] LABS: Basophils Percent Auto 0.4 % (0-2); Eosinophils Absolute Auto 0.1 X10*3/uL (0.0-0.4); Eosinophils Percent Auto 2.6 % (0-4); Hematocrit 36.8 % (37.0-47.0); Hemoglobin 11.6 g/dl (12.0-16.0); Imm Gran Abs Auto 0.02 X10*3/uL (0.00-0.03); Imm Gran Pct Auto 0.4 % (0.0-0.4); Lymphocytes Absolute Auto 1.4 X10*3/uL (1.2-4.9); Lymphocytes Percent Auto 27.9 % (20-40); Mean Corpuscular HGB Conc 31.5 g/dl (31.0-35.0); Mean Corpuscular Hemoglobin 26.4 pg (27.0-33.0); Mean Corpuscular Volume 83.8 fL (80.0-98.0); Mean Platelet Volume 11.5 fL (9.4-12.3); Monocytes Absolute Auto 0.4 X10*3/uL (0.1-1.2); Monocytes Percent Auto 7.5 % (2-11); Neutrophils Percent Auto 61.2 % (45-73); Platelet Count 197 X10*3/uL (160-400); Red Blood Count 4.39 X10*6/uL (4.20-5.50); Red Cell Distribution Width 13.8 % (11.0-16.0); White Blood Count 4.9 X10*3/uL (4.8-10.8)
[2024-02-19 12:12] LABS: Appearance Urine Clear; Color Urine Yellow; Glucose Urine UA Negative (Negative); Leukocyte Esterase Urine Small (1+) (Negative); Nitrite Urine Negative (Negative); UMIC TRIGGER UA YES; Urine Blood Negative (Negative); Urine Ketones Negative (Negative); Urine Protein Negative (Neg-Trace)
[2024-02-19 12:28] LABS: Bacteria Urine 1+ (None Seen); Hyaline Casts Urine 0-2 /LPF (0-2); RBC Urine 0-2 /HPF (0-2); WBC Urine 0-5 /HPF (0-5)
[2024-02-19 12:51] LABS: Alanine Aminotransferase 21 U/L (0-31); Albumin Level 4.2 g/dL (3.5-5.0); Alkaline Phosphatase 59 U/L (39-117); Anion Gap 11 (12-20); Aspartate Amino Transferase 17 U/L (5-31); Bilirubin Total 0.4 mg/dL (0.0-1.0); Blood Urea Nitrogen 13 mg/dL (9-16); Calcium 9.1 mg/dL (8.4-10.2); Carbon Dioxide 26 mmol/L (22-29); Chloride 106 mmol/L (96-108); Cholesterol 204 mg/dL (<200); Estimated Glomerular Filt Rate > 60; Glucose Fasting 95 mg/dL (60-99); HDL Cholesterol 61 mg/dL (>40); LDL Cholesterol Calculated 114 mg/dL (<100); Sodium 139 mmol/L (135-145); Total Protein 7.2 g/dL (6.5-8.0); Triglycerides 148 mg/dL (<150)
== END 2024-02-19 08:52 | disposition home or self-care (01) ==
LOC: HO.HMGCLDS 08:51
PROVIDERS: PCP Internal Medicine; Visit Provider Internal Medicine
DX: Z00.00 Encounter for general adult medical examination without abnormal findings (principal); R13.13 Dysphagia, pharyngeal phase
CPT/HCPCS: 36415; 80053; 80061; 81001; 85025

== ENCOUNTER 2024-03-13 07:55 | Outpatient (REF) | payer OTHER, SELFPAY | END 2024-03-13 07:56 | disposition home or self-care (01) | LOC: HO.HMGCLNP 07:55 | PROVIDERS: PCP Internal Medicine; Visit Provider Internal Medicine | DX: A04.8 Other specified bacterial intestinal infections (principal); N83.209 Unspecified ovarian cyst, unspecified side | CPT/HCPCS: 87338 ==

== ENCOUNTER 2024-04-24 08:05 | Outpatient (AMB) | payer OTHER, SELFPAY ==
[2024-04-24 08:14] VITALS: BP 122/76; PULSE 85; TEMP 36.7; O2SAT 98; BMI 29.1
--- NOTE | 2024-04-24 08:14 | AM.OFFWIN_ITS ---
Intake Vital Signs 04/24/24 08:14 Height 5 ft 3 in Weight 164 lb 3 oz BMI 29.1 BP 122/76 Blood Pressure Location Lt brachial Position Sitting Pulse 85 Pulse Source Pulse Oximeter Temp 98.1 F Temp Source Oral Pulse Oximetry (%) 98 Oxygen Delivery Method Room Air Intake Visit Reasons: EP Coughing 1 week Intake Note: Pt is here today for ongoing cough for a wk Patient Tobacco Use Status: Never used Tobacco Allergies No Known Allergies [No Known Allergies*] Allergy (Verified 02/19/24 07:59) HPI HPI Comments History of Present Illness Details 48 y/o female [facility]o productive cough x 1 week. She has not used any OTC remedies. [facility] Medical History Allergic rhinitis Annual physical exam Dysplastic nevi Gastritis Graves disease Helicobacter pylori gastritis Knee pain, left Normal Pap smear Palpitations Family History Father No problems noted. Mother No problems noted. 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 Alcohol intake: never Patient Tobacco Use Status: Never used Tobacco e-Cigarette/Vaping Use: Never Used service: No Current occupational status: employed Cognitive needs: No Hearing needs: No Vision needs: No Female Reproductive History Menstrual Age of Menarche: 16 Review of Systems Const All systems reviewed & are unremarkable except as noted in HPI and below Physical Exam Vital Signs: Last Vital Signs Temp 98.1 F 04/24/24 08:14 Pulse 85 04/24/24 08:14 BP 122/76 04/24/24 08:14 Pulse Ox 98 04/24/24 08:14 Oxygen Delivery Method Room Air 04/24/24 08:14 BMI result Body Mass Index 29.1 Const General: comfortable and no acute distress Orientation/consciousness: patient oriented x3 HEENT Head: Yes normocephalic Ears: external ears normal and TM's normal bilaterally Mouth: moist mucous membranes Throat: Yes tonsils normal and Yes uvula midline Resp Effort & Inspection: normal respiratory effort, able to speak in complete sentences and Actively coughing Auscultation: clear to auscultation bilaterally, no crackles, no rales, no rhonchi and no wheezes Cardio Rate: regular rate Rhythm: regular rhythm Neuro General: patient oriented x3 Assessment & Plan Assessment & Plan (1) Bronchitis: Code(s): J40 - Bronchitis, not specified as acute or chronic Plan: - Rest and hydrate with warm fluids - OTC cough remedies. Medications: New azithromycin 500 mg PO DAILY 3 tabs 0RF 3 days J40 - Bronchitis, not specified as acute or chronic benzonatate 100 mg PO TID 30 caps 0RF J40 - Bronchitis, not specified as acute or chronic, R05.9 - Cough, unspecified Coding Level of Care Code Est Pt Level 3 (56455) Diagnoses Bronchitis J40 Time Spent (min) 15
== END 2024-04-24 08:40 | disposition home or self-care (01) ==
PROVIDERS: PCP Internal Medicine; Visit Provider Nurse Practitioner Family
DX: J40 Bronchitis, not specified as acute or chronic (principal)
CPT/HCPCS: 99213

== ENCOUNTER 2024-05-14 08:20 | Outpatient (AMB) | payer OTHER, SELFPAY ==
--- NOTE | 2024-05-14 08:27 | A.OFFVIS_ITS ---
Vital Signs 05/14/24 08:28 Height 5 ft 3 in Weight 160 lb 14.999 oz BMI 28.5 BP 147/74 H Blood Pressure Location Lt brachial Position Sitting Pulse 80 Intake Visit Reasons: Screening Colonoscopy Intake Note: Ama presents in the office as a new patient for a screening for a colonoscopy. CC: She states that her last colo was 5 years ago. She states that she feels like she has something stuck in her throat/esophagus. She has different tastes in her throat and mouth and she feels like it is coming from her stomach. [facility] Director Required: No Allergies No Known Allergies [No Known Allergies*] Allergy (Verified 02/19/24 07:59) HPI HPI Screening Colonoscopy: Details: 48-year-old female here for initial evaluation of dysphagia. She is referred by Jany Lockett of [facility] primary care. PMX Allergic rhinitis Graves disease History of H pylori gastritis History of dysplastic nevi History of diverticulitis - pt ont sure Ovarian cysts * SURGICAL HISTORY EGD/colonoscopy-2019, Charli normal study/H pylori Uterine polyp removal * ALLERGIES: NKDA * [employer] LABS: Laboratory Tests 02/19/24 09:10 WBC 4.9 Hgb 11.6 L Hct 36.8 L MCV 83.8 MCH 26.4 L Plt Count 197 Estimated GFR > 60 Total Bilirubin 0.4 AST 17 ALT 21 Alkaline Phosphatase 59 UPPER GI STUDY 12/26/23 FINDINGS: Lateral cine images of the oropharynx and hypopharynx demonstrate normal swallow mechanism with normal epiglottic inversion and soft palate elevation. No tracheal penetration, glottic or subglottic aspiration identified. No nasopharyngeal reflux present. Hypopharyngeal structures appear normal without evidence of mass or diverticulum. There was no significant cricopharyngeal achalasia. Dual and single contrast images of the esophagus demonstrate normal caliber, contour, and mucosal pattern. No evidence of stricture, mass, or ulcerations identified. Esophageal peristalsis was normal. No evidence of hiatus hernia identified. No significant gastroesophageal reflux was seen during the course of the examination and on reflux views. FLUOROSCOPY TIME: 2 minutes 22 seconds Number of Spot Images: 5 Number of Cine: 6 DOSE AREA PRODUCT: 968.9 uGy-m2 (microgray-meter squared) FL/FL upper GI w Ba Swallow IMPRESSION: Unremarkable esophagram CT ABDOMEN AND PELVIS 12/05/23 FINDINGS: LUNG BASES: The lung bases are clear. The heart size is normal. LIVER, GALLBLADDER, AND BILIARY TREE: The liver is normal in size, shape, and attenuation. No focal hepatic lesion or biliary ductal dilatation is present. The gallbladder is unremarkable with no evidence of radiopaque gallstones, gallbladder wall thickening, or obvious pericholecystic inflammatory changes. PANCREAS: Unremarkable. SPLEEN: The spleen is 12 cm in length and appears unremarkable. ADRENAL GLANDS: Unremarkable. KIDNEYS AND URETERS: The kidneys are normal in size, shape, and attenuation. No hydronephrosis, hydroureter, or calculi seen. No perinephric stranding. BLADDER: Unremarkable. GASTROINTESTINAL TRACT: Scattered stool and gas and oral contrast seen throughout the colon without distention. The small bowel loops are normal caliber. Appendix is long but normal caliber. The stomach is nondistended with oral contrast and ingested food. ABDOMINAL WALL: No significant hernia is appreciated. LYMPH NODES: Normal. VASCULAR: Unremarkable. PELVIC VISCERA: The uterus is retroverted with bilateral ovarian cysts and minimal left periovarian fluid collection right ovarian cyst is bilobed with a larger component measuring 2.8 cm and the left ovarian cyst measures 3.4 cm. There is no free fluid in the cul-de-sac. There is a small hypodensity anterior to the left hip joint in the iliopsoas muscle question ileus was bursitis. OSSEOUS STRUCTURES: No aggressive lytic or sclerotic process. CT/CT abdomen pelvis w IV con IMPRESSION: 1. No acute intra-abdominal process seen. 2. Mild constipation. Normal appendix. 3. Retroverted uterus with bilateral ovarian cysts. 4. Left iliopsoas bursitis TODAY'S VISIT She has been having LLQ pain and some RB on TT. This started about 5-6 mos ago. She also has ovarian cysts that are a confounding factor. She has it about q 2 mos to monthly. She really struggles to move her bowels, they are very hard and she has to push. She see blood on the TT and filling the bowel red. No rectal pain or itching. The pain is described as a stretching/pressure pain at 9/10 and is relieved by taking 3 ibuprofen. She has tried to increase her fiber w/o good relief. She has not tried any OTC medication. She had one episode of bending to tie her shoes and the pain occurred severely, and she could not move her bowels. She has a strange taste in her mouth that alternates between a sweet taste and salty taste. She also has dysphagia of dry foods at times above the sternal notch and at times mid sternally. She at times has to cough back up the piece of food. This has been over 5-6 mos. I ask if she has had any sinus issues and she does have chronic allergies so I wonder if this sweet salty taste is coming from postnasal drip. No recent medication changes, no diet changes, no abx use. She did have a hx of H pylori, and was given 3 antibiotics but she stopped after 3 days r/t diarrhea. There is no known FHX of similar sx. Get TSH as she is not on medication she stopped it 2 years ago, has a hx of Graves disease. She took methamazole but to her knowledge she did not have radioactive iodine or surgery. ROV 6 weeks. [facility] Medical History (Updated 05/14/24 @ 09:02 by REJI Tse) H. pylori infection Normal pelvic exam Normal Pap smear Annual physical exam Palpitations Dysplastic nevi Knee pain, left Gastritis Graves disease Helicobacter pylori gastritis Allergic rhinitis Surgical History Hx of colonoscopy History of esophagogastroduodenoscopy (EGD) Family History Father No problems noted. Mother No problems noted. 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 Alcohol intake: never Patient Tobacco Use Status: Never used Tobacco e-Cigarette/Vaping Use: Never Used service: No Current occupational status: employed Cognitive needs: No Hearing needs: No Vision needs: No Female Reproductive History Menstrual Age of Menarche: 16 Review of Systems Const Denies fatigue, Denies fever(s), Denies night sweats, Denies poor appetite and Denies weight loss ENT Reports Normal hearing present, Denies dental pain, Reports dysphagia, Denies hearing loss, Denies mouth pain, Reports odynophagia, Denies throat swelling, Denies tongue swelling and Reports other (Dentition adequate) Card Reports no additional complaints Resp Reports no additional complaints GI Details: Reports abdominal pain, Denies melena, Denies bloating, Reports hematochezia, Reports constipation, Denies GI cramping, Reports dysphagia, Denies excessive flatus, Denies early satiety, Denies heartburn, Denies diarrhea, Denies nausea, Reports odynophagia, Denies vomiting and Denies hematemesis Skin/Breast Denies pruritus, Denies lesions, Denies rash and Denies jaundice Neuro Reports Normal hearing present and Denies Abnormal speech present Endo Denies fatigue Aller/Immun Denies throat swelling and Denies tongue swelling Physical Exam Vital Signs: Last Vital Signs Pulse 80 05/14/24 08:28 BP 147/74 H 05/14/24 08:28 BMI result Body Mass Index 28.5 Const General: cooperative, no acute distress, well developed and well groomed Nutritional Appearance: well nourished Orientation/consciousness: oriented to person, oriented to place and oriented to time Limitations: No language barrier HEENT Head: Yes normocephalic and Yes atraumatic Eyes General: appearance normal, both eyes and all related structures Pupils: Equal, round and reactive pupils present Neck Neck: Yes normal visual inspection and Yes no lymphadenopathy Thyroid: Thyroid normal Resp Effort & Inspection: normal respiratory effort and able to speak in complete sentences Auscultation: clear to auscultation bilaterally Cardio Rate: regular rate Rhythm: regular rhythm Heart sounds: Normal, physiologic split S2 sound present Peripheral pulses: radial pulses present and posterior tibial pulses present GI Inspection: No distended and No Abdominal panniculus present Palpation (GI): Soft to palpation, nontender, no guarding, not rigid and No hepatosplenomegaly present Percussion: Yes normal to percussion Auscultation: normal bowel sounds Rectal Exam - Female: deferred Skin General skin exam: no rashes or lesions noted, turgor normal, skin not dry, no jaundice, No spider nevi and no striae Rashes: no rashes Nails: normal Neuro General: oriented to person, oriented to place and oriented to time Cranial nerves: Yes Equal, round and reactive pupils present and Yes Normal hearing present Speech: No Abnormal speech present Extrem General: Yes normal to inspection, No clubbing, No cyanosis and No edema Psych Appearance: grossly normal and well kempt Mental Status: mental status grossly normal Speech and movement: Normal speech and movement present Affect: normal affect Attitude: cooperative Thought process: Normal thought process present and not confabulating Thought content: Normal thought content present Insight: Limited insight present (Psych) Judgement: Limited judgement present (Psych) Results Reviewed Results Reviewed: Laboratory Tests 02/19/24 09:10 WBC 4.9 Hgb 11.6 L Hct 36.8 L MCV 83.8 MCH 26.4 L Plt Count 197 Estimated GFR > 60 Total Bilirubin 0.4 AST 17 ALT 21 Alkaline Phosphatase 59 UPPER GI STUDY 12/26/23 FINDINGS: Lateral cine images of the oropharynx and hypopharynx demonstrate normal swallow mechanism with normal epiglottic inversion and soft palate elevation. No tracheal penetration, glottic or subglottic aspiration identified. No nasopharyngeal reflux present. Hypopharyngeal structures appear normal without evidence of mass or diverticulum. There was no significant cricopharyngeal achalasia. Dual and single contrast images of the esophagus demonstrate normal caliber, contour, and mucosal pattern. No evidence of stricture, mass, or ulcerations identified. Esophageal peristalsis was normal. No evidence of hiatus hernia identified. No significant gastroesophageal reflux was seen during the course of the examination and on reflux views. FLUOROSCOPY TIME: 2 minutes 22 seconds Number of Spot Images: 5 Number of Cine: 6 DOSE AREA PRODUCT: 968.9 uGy-m2 (microgray-meter squared) FL/FL upper GI w Ba Swallow IMPRESSION: Unremarkable esophagram CT ABDOMEN AND PELVIS 12/05/23 FINDINGS: LUNG BASES: The lung bases are clear. The heart size is normal. LIVER, GALLBLADDER, AND BILIARY TREE: The liver is normal in size, shape, and attenuation. No focal hepatic lesion or biliary ductal dilatation is present. The gallbladder is unremarkable with no evidence of radiopaque gallstones, gallbladder wall thickening, or obvious pericholecystic inflammatory changes. PANCREAS: Unremarkable. SPLEEN: The spleen is 12 cm in length and appears unremarkable. ADRENAL GLANDS: Unremarkable. KIDNEYS AND URETERS: The kidneys are normal in size, shape, and attenuation. No hydronephrosis, hydroureter, or calculi seen. No perinephric stranding. BLADDER: Unremarkable. GASTROINTESTINAL TRACT: Scattered stool and gas and oral contrast seen throughout the colon without distention. The small bowel loops are normal caliber. Appendix is long but normal caliber. The stomach is nondistended with oral contrast and ingested food. ABDOMINAL WALL: No significant hernia is appreciated. LYMPH NODES: Normal. VASCULAR: Unremarkable. PELVIC VISCERA: The uterus is retroverted with bilateral ovarian cysts and minimal left periovarian fluid collection right ovarian cyst is bilobed with a larger component measuring 2.8 cm and the left ovarian cyst measures 3.4 cm. There is no free fluid in the cul-de-sac. There is a small hypodensity anterior to the left hip joint in the iliopsoas muscle question ileus was bursitis. OSSEOUS STRUCTURES: No aggressive lytic or sclerotic process. CT/CT abdomen pelvis w IV con IMPRESSION: 1. No acute intra-abdominal process seen. 2. Mild constipation. Normal appendix. 3. Retroverted uterus with bilateral ovarian cysts. 4. Left iliopsoas bursitis Assessment & Plan Assessment & Plan (1) Pharyngeal dysphagia: Code(s): R13.13 - Dysphagia, pharyngeal phase Category: Medical (2) Chronic idiopathic constipation: Code(s): K59.04 - Chronic idiopathic constipation Category: Medical (3) Rectal bleeding: Code(s): K62.5 - Hemorrhage of anus and rectum Category: Medical Plan She has been having LLQ pain and some RB on TT. This started about 5-6 mos ago. She also has ovarian cysts that are a confounding factor. She has it about q 2 mos to monthly. She really struggles to move her bowels, they are very hard and she has to push. She see blood on the TT and filling the bowel red. No rectal pain or itching. The pain is described as a stretching/pressure pain at 9/10 and is relieved by taking 3 ibuprofen. She has tried to increase her fiber w/o good relief. She has not tried any OTC medication. She had one episode of bending to tie her shoes and the pain occurred severely, and she could not move her bowels. She has a strange taste in her mouth that alternates between a sweet taste and salty taste. She also has dysphagia of dry foods at times above the sternal notch and at times mid sternally. She at times has to cough back up the piece of food. This has been over 5-6 mos. I ask if she has had any sinus issues and she does have chronic allergies so I wonder if this sweet salty taste is coming from postnasal drip. No recent medication changes, no diet changes, no abx use. She did have a hx of H pylori, and was given 3 antibiotics but she stopped after 3 days r/t diarrhea. There is no known FHX of similar sx. Get TSH as she is not on medication she stopped it 2 years ago, has a hx of Graves disease. She took methamazole but to her knowledge she did not have radioactive iodine or surgery. ROV 6 weeks. Orders: Orders TSH reflex Free T4 Today K62.5 - Hemorrhage of anus and rectum, R13.13 - Dysphagia, pharyngeal phase EGD/[employer] Combo - GI Use Only Today R13.13 - Dysphagia, pharyngeal phase Thyroid Peroxidase Antibodies Today K59.04 - Chronic idiopathic constipation Medications: New sod sulf-pot chloride-mag sulf 1.479-0.188- 0.225 gram (Sutab) PO PER PKG DIR for colonoscopy prep 24 tabs 0RF sennosides (Senna Laxative) 17.2 mg (2 x 8.6 mg) PO BEDTIME 60 tabs 3RF K59.04 - Chronic idiopathic constipation Coding Level of Care Code New Pt Level 3 (15305) Diagnoses Pharyngeal dysphagia R13.13 Chronic idiopathic constipation K59.04 Rectal bleeding K62.5
[2024-05-14 08:28] VITALS: BP 147/74; PULSE 80; BMI 28.5
== END 2024-05-14 10:23 | disposition home or self-care (01) ==
PROVIDERS: PCP Internal Medicine; Referring Provider Internal Medicine; Visit Provider Nurse Practitioner
DX: R13.13 Dysphagia, pharyngeal phase (principal); K59.04 Chronic idiopathic constipation; K62.5 Hemorrhage of anus and rectum
CPT/HCPCS: 99203

== ENCOUNTER → 2024-05-14 08:20 | Outpatient (BNVA) | payer OTHER, SELFPAY | PROVIDERS: PCP Internal Medicine; Referring Provider Internal Medicine; Visit Provider Nurse Practitioner | DX: R13.13 Dysphagia, pharyngeal phase (principal); K59.04 Chronic idiopathic constipation; K62.5 Hemorrhage of anus and rectum | CPT/HCPCS: 99202 ==

== ENCOUNTER → 2024-08-21 08:53 | Outpatient (AMB) | payer OTHER, SELFPAY ==
[2024-08-21 09:10] VITALS: BP 138/83; PULSE 73; BMI 27.3
--- NOTE | 2024-08-21 09:10 | A.OFFVIS_ITS ---
Vital Signs 08/21/24 09:10 Height 5 ft 3 in Weight 154 lb 5.177 oz BMI 27.3 BP 138/83 Blood Pressure Location Lt brachial Position Sitting Pulse 73 Intake Visit Reasons: 6 week f/u Intake Note: Ama returns to in office follow up of dysphagia and CIC. CC: Patient reports some improvement on her symptoms. She states that she had an allergy test that showed she is allergic to two different kinds of fungus. Preventative Maintenance Technician Required: No Allergies No Known Allergies [No Known Allergies*] Allergy (Verified 08/21/24 09:15) HPI HPI 6 week f/u: Details: Assessment & Plan (1) Pharyngeal dysphagia: Code(s): R13.13 - Dysphagia, pharyngeal phase Category: Medical (2) Chronic idiopathic constipation: Code(s): K59.04 - Chronic idiopathic constipation Category: Medical (3) Rectal bleeding: Code(s): K62.5 - Hemorrhage of anus and rectum Category: Medical Plan She has been having LLQ pain and some RB on TT. This started about 5-6 mos ago. She also has ovarian cysts that are a confounding factor. She has it about q 2 mos to monthly. She really struggles to move her bowels, they are very hard and she has to push. She see blood on the TT and filling the bowel red. No rectal pain or itching. The pain is described as a stretching/pressure pain at 9/10 and is relieved by taking 3 ibuprofen. She has tried to increase her fiber w/o good relief. She has not tried any OTC medication. She had one episode of bending to tie her shoes and the pain occurred severely, and she could not move her bowels. She has a strange taste in her mouth that alternates between a sweet taste and salty taste. She also has dysphagia of dry foods at times above the sternal notch and at times mid sternally. She at times has to cough back up the piece of food. This has been over 5-6 mos. I ask if she has had any sinus issues and she does have chronic allergies so I wonder if this sweet salty taste is coming from postnasal drip. No recent medication changes, no diet changes, no abx use. She did have a hx of H pylori, and was given 3 antibiotics but she stopped after 3 days r/t diarrhea. There is no known FHX of similar sx. Get TSH as she is not on medication she stopped it 2 years ago, has a hx of Graves disease. She took methamazole but to her knowledge she did not have radioactive iodine or surgery. ROV 6 weeks. Orders: Orders TSH reflex Free T4 Today K62.5 - Hemorrhage of anus and rectum, R13.13 - Dysphagia, pharyngeal phase EGD/[place] [facility] - GI Use Only Today R13.13 - Dysphagia, pharyngeal phase Thyroid Peroxidase Antibodies Today K59.04 - Chronic idiopathic constipation Medications: New sod sulf-pot chloride-mag sulf 1.479-0.188- 0.225 gram (Sutab) PO PER PKG DIR for colonoscopy prep 24 tabs 0RF sennosides (Senna Laxative) 17.2 mg (2 x 8.6 mg) PO BEDTIME 60 tabs 3RF K59.04 - Chronic idiopathic constipation LABS: Not obtained EGD/COLONOSCOPY 09/26/2024 BIOPSY TODAY'S VISIT She is taking 1 senna a night and she has find this that this has alleviated her left lower quadrant pain. I let her know she can go up to 2 if she needs to but she says this is working well at time she will even skip a day to avoid diarrhea. She did have a couple of days of an episode of pulling sensation across the upper abdomen but this has resolved and she has not had it since. At this time she is satisfied with her GI regimen and she can either have her primary prescribe it, although she does not have another appointment with her primary for a year, or I can prescribe it. Will decide this at her next appointment. She has an appointment with me after her endoscopy in August and we will keep this for her follow-up. [facility] Medical History H. pylori infection Normal pelvic exam Normal Pap smear Annual physical exam Palpitations Dysplastic nevi Knee pain, left Gastritis Graves disease Helicobacter pylori gastritis Allergic rhinitis Surgical History Hx of colonoscopy History of esophagogastroduodenoscopy (EGD) Family History Father No problems noted. Mother No problems noted. 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 Alcohol intake: never Patient Tobacco Use Status: Never used Tobacco e-Cigarette/Vaping Use: Never Used service: No Current occupational status: employed Cognitive needs: No Hearing needs: No Vision needs: No Female Reproductive History Menstrual Age of Menarche: 16 Review of Systems Const Denies fatigue, Denies fever(s), Denies night sweats, Denies poor appetite and Denies weight loss ENT Reports Normal hearing present, Denies dental pain, Denies dysphagia, Denies hearing loss, Denies mouth pain, Denies odynophagia, Denies throat swelling, Denies tongue swelling and Reports other (Dentition adequate) Card Reports no additional complaints Resp Reports no additional complaints GI Details: Denies abdominal pain, Denies melena, Denies bloating, Denies hematochezia, Reports constipation, Reports GI cramping, Denies dysphagia, Denies excessive flatus, Denies early satiety, Denies heartburn, Denies diarrhea, Denies nausea, Denies odynophagia, Denies vomiting and Denies hematemesis Skin/Breast Denies pruritus, Denies lesions, Denies rash and Denies jaundice Neuro Reports Normal hearing present and Denies Abnormal speech present Endo Denies fatigue Aller/Immun Denies throat swelling and Denies tongue swelling Physical Exam Vital Signs: Last Vital Signs Pulse 73 08/21/24 09:10 BP 138/83 08/21/24 09:10 BMI result Body Mass Index 27.3 Const General: cooperative, no acute distress, well developed and well groomed Nutritional Appearance: average body habitus and well nourished Orientation/consciousness: oriented to person, oriented to place and oriented to time Limitations: No language barrier HEENT Head: Yes normocephalic and Yes atraumatic Eyes General: appearance normal, both eyes and all related structures Pupils: Equal, round and reactive pupils present Neck Neck: Yes normal visual inspection and Yes no lymphadenopathy Thyroid: Thyroid normal Resp Effort & Inspection: normal respiratory effort and able to speak in complete sentences Auscultation: clear to auscultation bilaterally Cardio Rate: regular rate Rhythm: regular rhythm Heart sounds: Normal, physiologic split S2 sound present Peripheral pulses: radial pulses present and posterior tibial pulses present GI Inspection: No distended and No Abdominal panniculus present Palpation (GI): Soft to palpation, nontender, no guarding, not rigid and No hepatosplenomegaly present Percussion: Yes normal to percussion Auscultation: normal bowel sounds Rectal Exam - Female: deferred Skin General skin exam: no rashes or lesions noted, turgor normal, skin not dry, no jaundice, No spider nevi and no striae Rashes: no rashes Nails: normal Neuro General: oriented to person, oriented to place and oriented to time Cranial nerves: Yes Equal, round and reactive pupils present and Yes Normal hearing present Speech: No Abnormal speech present Extrem General: Yes normal to inspection, No clubbing, No cyanosis and No edema Psych Appearance: grossly normal and well kempt Mental Status: mental status grossly normal Speech and movement: Normal speech and movement present Affect: normal affect Attitude: cooperative Thought process: Normal thought process present and not confabulating Thought content: Normal thought content present Insight: Fair insight present (Psych) Judgement: Fair judgement present (Psych) Assessment & Plan Assessment & Plan (1) Chronic idiopathic constipation: Code(s): K59.04 - Chronic idiopathic constipation Category: Medical (2) Rectal bleeding: Code(s): K62.5 - Hemorrhage of anus and rectum Category: Medical (3) Odynophagia: Code(s): R13.10 - Dysphagia, unspecified Category: Medical (4) Graves disease: Comment: f/u with Endo , off meds , TSH Q 3 months 02/15 Code(s): E05.00 - Thyrotoxicosis with diffuse goiter without thyrotoxic crisis or storm Category: Medical Plan She is taking 1 senna a night and she has find this that this has alleviated her left lower quadrant pain. I let her know she can go up to 2 if she needs to but she says this is working well at time she will even skip a day to avoid diarrhea. She did have a couple of days of an episode of pulling sensation across the upper abdomen but this has resolved and she has not had it since. At this time she is satisfied with her GI regimen and she can either have her primary prescribe it, although she does not have another appointment with her primary for a year, or I can prescribe it. Will decide this at her next appointment. She has an appointment with me after her endoscopy in August and we will keep this for her follow-up. She had a thyroid test done at her primary care's office and she was told everything was all right so I told her she did not need to get my testing done. EGD/COLONOSCOPY 09/26/2024 BIOPSY Coding Level of Care Code Est Pt Level 3 (69403) Diagnoses Chronic idiopathic constipation K59.04 Rectal bleeding K62.5 Odynophagia R13.10 Graves disease E05.00
== END ==
PROVIDERS: PCP Internal Medicine; Visit Provider Nurse Practitioner
DX: K59.04 Chronic idiopathic constipation (principal); K62.5 Hemorrhage of anus and rectum; R13.10 Dysphagia, unspecified; E05.00 Thyrotoxicosis with diffuse goiter without thyrotoxic crisis or storm
CPT/HCPCS: 99213

== ENCOUNTER → 2024-08-21 08:53 | Outpatient (BNVA) | payer OTHER, SELFPAY | PROVIDERS: PCP Internal Medicine; Visit Provider Nurse Practitioner | DX: R13.13 Dysphagia, pharyngeal phase (principal); K59.04 Chronic idiopathic constipation; K62.5 Hemorrhage of anus and rectum; E05.00 Thyrotoxicosis with diffuse goiter without thyrotoxic crisis or storm | CPT/HCPCS: 99212 ==

== ENCOUNTER 2024-09-12 08:01 | Outpatient (AMB) | payer OTHER, SELFPAY ==
[2024-09-12 08:05] VITALS: BP 132/80; PULSE 108; TEMP 36.9; O2SAT 100; BMI 27.5
--- NOTE | 2024-09-12 08:05 | MHC.OFFWIV ---
Intake Vital Signs 09/12/24 08:05 09/12/24 08:26 Height 5 ft 3 in Weight 155 lb BMI 27.5 BP 132/80 Blood Pressure Location Lt brachial Position Sitting Pulse 108 H 103 H Pulse Source Pulse Oximeter Pulse Oximeter Temp 98.4 F Temp Source Oral Pulse Oximetry (%) 100 96 Oxygen Delivery Method Room Air Room Air Intake Visit Reasons: EP Fever, cough, runny nose Intake Note: Patient here for fever,cough, nasal congestion, green mucus and headache that started yesterday Patient Tobacco Use Status: Never used Tobacco Allergies No Known Allergies [No Known Allergies*] Allergy (Verified 09/12/24 08:14) Do you need a note to return to daycare/school/sports/work: No HPI HPI Comments History of Present Illness Details Patient is a 48-year-old female complaining of 2 days of fever with a T-max of 100.4 degrees F, a productive cough with green mucus, a runny nose, headache and some sinus pain. She denies any shortness of breath, ear pain or history of asthma or COPD. She states her daughter is also at home sick with similar symptoms but has not been diagnosed with anything it. She has not tried any medications to make herself feel better as she has only been sick since yesterday. She also states she did not test at home for COVID. [facility] Medical History H. pylori infection Normal pelvic exam Normal Pap smear Annual physical exam Palpitations Dysplastic nevi Knee pain, left Gastritis Graves disease Helicobacter pylori gastritis Allergic rhinitis Surgical History Hx of colonoscopy History of esophagogastroduodenoscopy (EGD) Family History Father No problems noted. Mother No problems noted. 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 Alcohol intake: never Patient Tobacco Use Status: Never used Tobacco e-Cigarette/Vaping Use: Never Used service: No Current occupational status: employed Cognitive needs: No Hearing needs: No Vision needs: No Female Reproductive History Menstrual Age of Menarche: 16 Review of Systems Const All systems reviewed & are unremarkable except as noted in HPI and below Physical Exam Vital Signs: Last Vital Signs Temp 98.4 F 09/12/24 08:05 Pulse 108 H 09/12/24 08:05 BP 132/80 09/12/24 08:05 Pulse Ox 100 09/12/24 08:05 Oxygen Delivery Method Room Air 09/12/24 08:05 BMI result Body Mass Index 27.5 Const General: cooperative, healthy appearing, comfortable and no acute distress Orientation/consciousness: patient oriented x3 Limitations: no limitations HEENT Head: Yes normal to inspection Ears: hearing grossly normal bilaterally, external ears normal and TM's normal bilaterally General nose exam: Normal external nose present, Normal nares present and No nasal discharge present Face and sinus: Yes normal facial exam and Yes sinus tenderness Mouth: Normal oral and palatal mucosa present and moist mucous membranes Throat: Yes tonsils normal, Yes uvula midline and Yes posterior oropharynx abnormal (Erythema) Eyes General: appearance normal, both eyes and all related structures Neck Neck: Yes normal visual inspection Resp Effort & Inspection: normal respiratory effort, able to speak in complete sentences, no respiratory distress, not tachypneic, no tripod positioning and no use of accessory muscles Auscultation: clear to auscultation bilaterally Cardio Rate: regular rate Rhythm: regular rhythm Heart sounds: normal S1 and S2 Skin General skin exam: no rashes or lesions noted Neuro General: patient oriented x3 Extrem General: Yes normal to inspection and Yes no clubbing, cyanosis or edema Assessment & Plan Assessment & Plan (1) URI (upper respiratory infection): Code(s): J06.9 - Acute upper respiratory infection, unspecified Qualifiers: URI type: unspecified URI Qualified Code(s): J06.9 - Acute upper respiratory infection, unspecified Plan: Heart rate upon recheck was 103 beats per minute, educated patient on the fact she is probably getting dehydrated in her heart rates a little high because of her fevers. She should increase her fluid intake and monitor her heart rate. She should also take a decongestant and [id number] medications to treat her symptoms. This is likely viral, I did send a flu COVID and RSV test this morning. Recommended if her symptoms get worse or do not resolve over the next 2-3 weeks, she should follow up with her PCP. Plan See above Orders: Orders SARS-CoV2/FLU/RSV Today J06.9 - Acute upper respiratory infection, unspecified Coding Level of Care Code Est Pt Level 3 (92920) Diagnoses Upper respiratory tract infection, unspecified type J06.9 URI type: unspecified URI
[2024-09-12 08:26] VITALS: PULSE 103; O2SAT 96
== END 2024-09-12 08:51 | disposition home or self-care (01) ==
PROVIDERS: PCP Internal Medicine; Visit Provider Physician Assistant
DX: J06.9 Acute upper respiratory infection, unspecified (principal)

== ENCOUNTER 2024-09-26 10:09 | Day surgery (SDC) | payer OTHER, SELFPAY ==
[2024-09-24 09:40] VITALS: BMI 27.3
--- NOTE | 2024-09-25 10:32 | HO.ANESPROP2 ---
Documented by User: Suzanne Randall NP 09/25/24 10:34 HPI - Anesthesia Eval Consult details Narrative: 48yo F for Upper Endoscopy and Colonoscopy PMF Active Problems Active Problems: All Active Problems URI (upper respiratory infection) (Acute) Rectal bleeding (Acute) Chronic idiopathic constipation (Acute) Pharyngeal dysphagia (Acute) Ovarian cyst (Acute) Hx of colonoscopy (Acute) Diverticulitis (Acute) Odynophagia (Acute) Toe infection (Acute) Anxiety (Acute) Abnormal mammogram of right breast (Acute) Abnormal ultrasound of breast (Acute) Palpitations (Acute) Graves disease (Acute) Dysplastic nevi (Acute) Knee pain, left (Acute) Gastritis (Acute) Sciatica (Acute) Muscle spasm (Acute) Past Medical History Medical History H. pylori infection Normal pelvic exam Normal Pap smear Annual physical exam Palpitations Dysplastic nevi Knee pain, left Gastritis Graves disease Helicobacter pylori gastritis Allergic rhinitis Family History Family History Father No problems noted. Mother No problems noted. 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 Alcohol intake: never Patient Tobacco Use Status: Never used Tobacco e-Cigarette/Vaping Use: Never Used service: No Current occupational status: employed Cognitive needs: No Hearing needs: No Vision needs: No Meds Allergies Allergy/AdvReac Type Severity Reaction Status Date / Time No Known Allergies Allergy Verified 09/26/24 10:23 [No Known Allergies*] Home Medications ?Medication ?Instructions ?Recorded ?Confirmed ?Last Taken ?Type azelastine 137 mcg (0.1 %) nasal 1 spray intranasal BID 08/21/24 Unknown History spray Exam Height,Weight and Vital Signs: Height 5 ft 3 in Weight 69.853 kg Assessment and Plan Assessment Anesthesia Assessment: Chart Reviewed Documented by User: Michael Monsalve MD 09/26/24 12:37 PMFSH Past Medical History Medical History H. pylori infection Normal pelvic exam Normal Pap smear Annual physical exam Palpitations Dysplastic nevi Knee pain, left Gastritis Graves disease Helicobacter pylori gastritis Allergic rhinitis Patient : No Family History Family History Father No problems noted. Mother No problems noted. 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 Alcohol intake: never Patient Tobacco Use Status: Never used Tobacco e-Cigarette/Vaping Use: Never Used service: No Current occupational status: employed Cognitive needs: No Hearing needs: No Vision needs: No Meds Allergies Allergy/AdvReac Type Severity Reaction Status Date / Time No Known Allergies Allergy Verified 09/26/24 10:23 [No Known Allergies*] Home Medications ?Medication ?Instructions ?Recorded ?Confirmed ?Last Taken ?Type azelastine 137 mcg (0.1 %) nasal 1 spray intranasal BID 08/21/24 Unknown History spray Exam Airway Mallampati Class: II TM Dist: <=3cm Neck ROM: Full Loose/Missing/Broken Teeth: No Heart: ok Lungs: ok Assessment and Plan Assessment Anesthesia Assessment: Anesthesia Plan Discussed Final Anesthetic Review Family History of Problems with Anesthesia: No History of Problems with Anesthesia: No NPO: Yes ASA Class: II Final Preanesthetic Review: No Changes in Pt Med Stat, Meds/Allgs Chart Reviewed, Consent Obtained/Reviewed and Anes Risks/Benef Reviewed Patient Risk: Intermediate Procedure Risk: Intermediate Anesthetic Plan Anesthetic Plan: Agree w/ Assess. and Plan and TIVA Disposition: Standard PACU
[2024-09-26 10:34] VITALS: BMI 26.7
[2024-09-26 10:36] VITALS: BP 129/73; PULSE 75; RESP 16; TEMP 36.8; O2SAT 100
[2024-09-26 10:37] LABS: UPreg QC Valid YES; Urine Pregnancy NEGATIVE (NEGATIVE)
[2024-09-26] MEDS: Lactated Ringers 1,000 ML 100 ML IVCONT (11:10)
--- NOTE | 2024-09-26 12:20 | MHC.SHP ---
Pre-Procedural Eval Section A - 24 Hr Update-Section A only Date of Service: 09/26/24 Section B - Complete if H&P > 30 days Chief Complaint: rectal bleeding,dysphagia,constipation Relevant Family History (Specify if Yes): No Relevant Social History: None Present Medications: see Short Stay Collaborative assessment Medical History: Significant History (Palpitations Dysplastic nevi Knee pain, left Gastritis Graves disease Helicobacter pylori gastritis Allergic rhinitis) History of Previous Operations: Relevant previous surgery/procedure and date(s) ( Hx of colonoscopy History of esophagogastroduodenoscopy (EGD)) Allergies: Allergies Allergy/AdvReac Type Severity Reaction Status Date / Time No Known Allergies Allergy Verified 09/26/24 10:23 [No Known Allergies*] Review of Systems Sugical H&P ROS: Negative: Constitution, Cardiovascular, Respiratory, Neurological, Psychiatric, Hem-Onc, Allergic/Immunologic, Gastrointestinal, Genitourinary, Musculoskeletal, Integumentary, Endocrine and Eyes/Ears/Nose/Throat Exam Surgical H&P Exam: Normal: HEENT, Normal: Heart, Normal: Lungs, Normal: Extremities, Normal: Abdomen, Normal: Skin and Normal: Neurological Plan Diagnosis/Plan: Unchanged I have reviewed the history and physical and performed a pertinent physical examination on my patient. No changes have occurred unless specified. Time Spent With Patient Time: Total time managing care of this patient today ____ minutes.
--- NOTE | 2024-09-26 12:50 | HO.OPN-COLON ---
Colonoscopy Operative Note Operative Note Date of Service: 09/26/24 Narrative: Operative Information Procedure Description: EGD, Colonoscopy Indication: GERD, screening Anesthesia: MAC FLEXIBLE TRANSORAL UPPER GASTROINTESTINAL ENDOSCOPY AND COLONOSCOPY PROCEDURE NOTE UPPER ENDOSCOPY Consent: Indications for the procedure and potential complications of bleeding, perforation, reaction to medications and missed diagnosis were discussed with the patient and informed consent was obtained. Instrument: Olympus GIF H 190 J mid size upper endoscope Monitoring: Vital signs and clinical assessment, continuous EKG monitoring, Pulse oximetry, Carbon Dioxide monitoring and blood pressure monitoring were done throughout the procedure. Procedure: The patient was placed in the left lateral decubitis position and pre-procedure medications were administered and a bite block was placed. The endoscope was inserted into the mouth and advanced under direct vision to the third part of duodenum. A careful inspection was made as the upper endoscope was withdrawn including a retroflexed examination of the proximal stomach; Findings and interventions are described below. Findings: Larynx:normal Esophagus: GE junction at 38 cm, diaphragm hiatus at 38 cm, normal mucosa, bx taken from GEJ Stomach: Mild erythema. Biopsies were obtained. Grade 2 flap valve on retroflexed examination of the cardia. Duodenum: Normal bulb and descending duodenum, Intervention: Biopsies as noted above, COLONOSCOPY Instrument: Olympus variable stiffness pediatric scope 190L Colonoscopy Monitoring: Vital signs and clinical assessment, continuous EKG monitoring, Pulse oximetry, Carbon Dioxide monitoring and blood pressure monitoring were done throughout the procedure. Colon withdrawal time was 8 minutes. Procedure: The patient was placed in the left lateral decubitis position and pre-procedure medications were administered. After a digital rectal examination of the ano-rectum, the video colonoscope was inserted into the rectum and advanced through the colon to the cecum/TI. The colonoscope was slowly withdrawn in a retrograde panoramic fashion and the colon mucosa was carefully examined including a retroflexed view of the rectum. Findings and interventions are described below. Procedure Difficulty:moderate--patient turned on back to intubate cecum Findings: Terminal Ileum-normal Cecum:normal Right sided retroflexion- normal Ascending Colon: normal Transverse Colon -normal Descending Colon:normal Sigmoid Colon: normal Rectum: Retroflexion with small internal hemorrhoids, grade I Anorectum - normal Colon preparation: [place] Bowel Preparation Scale Right colon; 2 Transverse colon: 2 Left colon; 2 (0 = Unprepared colon segment with mucosa not seen due to solid stool that cannot be cleared. 1 = Portion of mucosa of the colon segment seen, but other areas of the colon segment not well seen due to staining, residual stool and/or opaque liquid. 2 = Minor amount of residual staining, small fragments of stool and/or opaque liquid, but mucosa of colon segment seen well. 3 = Entire mucosa of colon segment seen well with no residual staining, small fragments of stool or opaque liquid) Impression and Post Procedure Diagnosis: Endoscopy Findings: mild gastritis Colonoscopy Findings: internal hemorrhoids Plan: Await Pathology results Repeat Colonoscopy in 10 years or earlier if clinically indicated High fiber diet leaflet avoid straining at stool, epsom salts and sitz bath, anusol supps or cream Above findings were reviewed with the patient and relevant handouts were provided if indicated.
[2024-09-26 13:15] VITALS: BP 115/76; PULSE 87; RESP 18; TEMP 36.5; O2SAT 98
[2024-09-26 13:30] VITALS: BP 137/75; PULSE 71; RESP 16; TEMP 36.1; O2SAT 100
== END 2024-09-26 13:49 | disposition home or self-care (01) ==
PROVIDERS: Nurse Practitioner; PCP Internal Medicine; Visit Provider Internal Medicine Gastroenterology
PROC: (CPT 45378; principal; 2024-09-26 14:00)
DX: Z12.11 Encounter for screening for malignant neoplasm of colon (principal); K64.0 First degree hemorrhoids; K62.5 Hemorrhage of anus and rectum; K59.04 Chronic idiopathic constipation; R13.10 Dysphagia, unspecified; K29.60 Other gastritis without bleeding; K21.9 Gastro-esophageal reflux disease without esophagitis; K44.9 Diaphragmatic hernia without obstruction or gangrene; J30.9 Allergic rhinitis, unspecified; E05.00 Thyrotoxicosis with diffuse goiter without thyrotoxic crisis or storm; R00.2 Palpitations; D23.9 Other benign neoplasm of skin, unspecified; Z79.51 Long term (current) use of inhaled steroids
CPT/HCPCS: 45378; 43239; 81025; 88305; 88313; 88342; J1100; J2003; J2704; J3010

== ENCOUNTER → 2024-09-26 10:09 | Outpatient (BNV) | payer OTHER, SELFPAY | PROVIDERS: PCP Internal Medicine; Visit Provider Internal Medicine Gastroenterology | DX: Z12.11 Encounter for screening for malignant neoplasm of colon (principal); K64.0 First degree hemorrhoids; K21.9 Gastro-esophageal reflux disease without esophagitis; K29.70 Gastritis, unspecified, without bleeding | CPT/HCPCS: 43239; 45378 ==

== ENCOUNTER 2024-10-10 09:43 | Outpatient (AMB) | payer OTHER, SELFPAY ==
--- NOTE | 2024-10-10 09:57 | A.OFFVIS_ITS ---
Vital Signs 10/10/24 09:58 Height 5 ft 3 in Weight 156 lb 1.396 oz BMI 27.6 BP 119/72 Blood Pressure Location Lt brachial Position Sitting Pulse 76 Intake Visit Reasons: s/p egd/colon Allergies No Known Allergies [No Known Allergies*] Allergy (Verified 10/10/24 10:03) Medication List - Last Reconciled 10/10/24 by REJI Tse azelastine 1 spray intranasal BID sennosides (Natural Senna Laxative) 8.6 mg PO BEDTIME HPI HPI s/p egd/colon: Details: Assessment & Plan (1) Chronic idiopathic constipation: Code(s): K59.04 - Chronic idiopathic constipation Category: Medical (2) Rectal bleeding: Code(s): K62.5 - Hemorrhage of anus and rectum Category: Medical (3) Odynophagia: Code(s): R13.10 - Dysphagia, unspecified Category: Medical (4) Graves disease: Comment: f/u with Endo , off meds , TSH Q 3 months 02/15 Code(s): E05.00 - Thyrotoxicosis with diffuse goiter without thyrotoxic crisis or storm Category: Medical Plan She is taking 1 senna a night and she has find this that this has alleviated her left lower quadrant pain. I let her know she can go up to 2 if she needs to but she says this is working well at time she will even skip a day to avoid diarrhea. She did have a couple of days of an episode of pulling sensation across the upper abdomen but this has resolved and she has not had it since. At this time she is satisfied with her GI regimen and she can either have her primary prescribe it, although she does not have another appointment with her primary for a year, or I can prescribe it. Will decide this at her next appointment. She has an appointment with me after her endoscopy in August and we will keep this for her follow-up. She had a thyroid test done at her primary care's office and she was told everything was all right so I told her she did not need to get my testing done. EGD/COLONOSCOPY 09/26/24 Findings: Larynx:normal Esophagus: GE junction at 38 cm, diaphragm hiatus at 38 cm, normal mucosa, bx taken from GEJ Stomach: Mild erythema. Biopsies were obtained. Grade 2 flap valve on retroflexed examination of the cardia. Duodenum: Normal bulb and descending duodenum, Findings: Terminal Ileum-normal Cecum:normal Right sided retroflexion- normal Ascending Colon: normal Transverse Colon -normal Descending Colon:normal Sigmoid Colon: normal Rectum: Retroflexion with small internal hemorrhoids, grade I Anorectum - normal Impression and Post Procedure Diagnosis: Endoscopy Findings: mild gastritis Colonoscopy Findings: internal hemorrhoids Plan: Await Pathology results Repeat Colonoscopy in 10 years or earlier if clinically indicated High fiber diet leaflet avoid straining at stool, epsom salts and sitz bath, anusol supps or cream BIOPSY Received: 09/26/24 ADDENDUM REPORT Addendum Addendum #1 Immunostain for H. pylori on A is negative. Additional level with AB/PAS on B is negative for intestinal metaplasia. Controls stain appropriately. Electronically Signed By: Nunu Peralta 09/30/24 0417 Diagnosis A. Stomach, biopsy: Gastric antral mucosa with minimal chronic inactive gastritis; negative for intestinal metaplasia and dysplasia. B. Gastroesophageal junction, biopsy: Squamocolumnar mucosa with minimal chronic inflammation; no intestinal metaplasia seen on initial levels; negative for dysplasia. Comment: (A): Immunostain for H. pylori pending; addendum to follow. (B): Additional level with AB/PAS stain pending; addendum to follow. TODAY'S VISIT She tolerate the procedure well. Her swallowing has improved and she and her PCP think it is r/t her thyroid since all of the GI work up has been benign. I suggest that for occasional GERD or dyspepsia she try OTC Pepcid. She takes senna as needed, and she will ask her PCP to rx this or she will drink the available OTC senna tea. She is happy with this for her CIC. prn. PFS Medical History (Updated 09/12/24 @ 08:28 by Ivet Kiran PA-C) H. pylori infection Normal pelvic exam Normal Pap smear Annual physical exam Palpitations Dysplastic nevi Knee pain, left Gastritis Graves disease Helicobacter pylori gastritis Allergic rhinitis Surgical History (Updated 10/10/24 @ 09:59 by REJI Tse) Hx of colonoscopy History of esophagogastroduodenoscopy (EGD) Family History Father No problems noted. Mother No problems noted. 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 Alcohol intake: never Patient Tobacco Use Status: Never used Tobacco e-Cigarette/Vaping Use: Never Used service: No Current occupational status: employed Cognitive needs: No Hearing needs: No Vision needs: No Female Reproductive History Menstrual Age of Menarche: 16 Review of Systems Const Denies fatigue, Denies fever(s), Denies night sweats, Denies poor appetite and Denies weight loss ENT Reports Normal hearing present, Denies dental pain, Denies dysphagia, Denies hearing loss, Denies mouth pain, Denies odynophagia, Denies throat swelling, Denies tongue swelling and Reports other (Dentition adequate) Card Reports no additional complaints Resp Reports no additional complaints GI Details: Denies abdominal pain, Denies melena, Denies bloating, Denies hematochezia, Rep orts constipation, Denies GI cramping, Denies dysphagia, Denies excessive flatus, Denies early satiety, Denies heartburn, Denies diarrhea, Denies nausea, Denies odynophagia, Denies vomiting and Denies hematemesis Skin/Breast Denies pruritus, Denies lesions, Denies rash and Denies jaundice Neuro Reports Normal hearing present and Denies Abnormal speech present Endo Denies fatigue Aller/Immun Denies throat swelling and Denies tongue swelling Physical Exam Const General: cooperative, no acute distress, well developed and well groomed Nutritional Appearance: average body habitus and well nourished Orientation/consciousness: oriented to person, oriented to place and oriented to time Limitations: No language barrier HEENT Head: Yes normocephalic and Yes atraumatic Eyes General: appearance normal, both eyes and all related structures Pupils: Equal, round and reactive pupils present Neck Neck: Yes normal visual inspection and Yes no lymphadenopathy Thyroid: Thyroid normal Resp Effort & Inspection: normal respiratory effort and able to speak in complete sentences Auscultation: clear to auscultation bilaterally Cardio Rate: regular rate Rhythm: regular rhythm Heart sounds: Normal, physiologic split S2 sound present Peripheral pulses: radial pulses present and posterior tibial pulses present GI Inspection: No distended and No Abdominal panniculus present Palpation (GI): Soft to palpation, nontender, no guarding, not rigid and No hepatosplenomegaly present Percussion: Yes normal to percussion Auscultation: normal bowel sounds Rectal Exam - Female: deferred Skin General skin exam: no rashes or lesions noted, turgor normal, skin not dry, no jaundice, No spider nevi and no striae Rashes: no rashes Nails: normal Neuro General: oriented to person, oriented to place and oriented to time Cranial nerves: Yes Equal, round and reactive pupils present and Yes Normal hearing present Speech: No Abnormal speech present Extrem General: Yes normal to inspection, No clubbing, No cyanosis and No edema Psych Appearance: grossly normal and well kempt Mental Status: mental status grossly normal Speech and movement: Normal speech and movement present Affect: normal affect Attitude: cooperative Thought process: Normal thought process present and not confabulating Thought content: Normal thought content present Insight: Good insight present (Psych) Judgement: Good judgement present (Psych) Assessment & Plan Assessment & Plan (1) Chronic idiopathic constipation: Code(s): K59.04 - Chronic idiopathic constipation Category: Medical (2) Rectal bleeding: Code(s): K62.5 - Hemorrhage of anus and rectum Category: Medical (3) Pharyngeal dysphagia: Code(s): R13.13 - Dysphagia, pharyngeal phase Category: Medical Plan She tolerate the procedure well. Her swallowing has improved and she and her PCP think it is r/t her thyroid since all of the GI work up has been benign. I suggest that for occasional GERD or dyspepsia she try OTC Pepcid. She takes senna as needed, and she will ask her PCP to rx this or she will drink the available OTC senna tea. She is happy with this for her CIC. prn. Coding Level of Care Code Est Pt Level 3 (15731) Diagnoses Chronic idiopathic constipation K59.04 Rectal bleeding K62.5 Pharyngeal dysphagia R13.13
--- NOTE | 2024-10-10 09:57 | MHC.OFFVIS ---
Vital Signs 10/10/24 09:58 Height 5 ft 3 in Weight 156 lb 1.396 oz BMI 27.6 BP 119/72 Blood Pressure Location Lt brachial Position Sitting Pulse 76 Intake Visit Reasons: s/p egd/colon Intake Note: Patient in office today s/p EGD and colonoscopy. CC: Patient reports doing well and denies having any GI symptoms or concerns today. Manager Inside Required: No Accompanied by: Self / Same As Patient Allergies No Known Allergies [No Known Allergies*] Allergy (Verified 10/10/24 10:03) [facility] Medical History H. pylori infection Normal pelvic exam Normal Pap smear Annual physical exam Palpitations Dysplastic nevi Knee pain, left Gastritis Graves disease Helicobacter pylori gastritis Allergic rhinitis Surgical History Hx of colonoscopy History of esophagogastroduodenoscopy (EGD) Family History Father No problems noted. Mother No problems noted. 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
[2024-10-10 09:58] VITALS: BP 119/72; PULSE 76; BMI 27.6
== END 2024-10-10 10:39 | disposition home or self-care (01) ==
PROVIDERS: PCP Internal Medicine; Visit Provider Nurse Practitioner
DX: K59.04 Chronic idiopathic constipation (principal); K62.5 Hemorrhage of anus and rectum; R13.13 Dysphagia, pharyngeal phase
CPT/HCPCS: 99213

== ENCOUNTER → 2024-10-10 09:43 | Outpatient (BNVA) | payer OTHER, SELFPAY | PROVIDERS: PCP Internal Medicine; Visit Provider Nurse Practitioner | DX: K59.04 Chronic idiopathic constipation (principal); K62.5 Hemorrhage of anus and rectum; R13.13 Dysphagia, pharyngeal phase | CPT/HCPCS: 99212 ==

== ENCOUNTER 2025-03-05 11:26 | Outpatient (AMB) | payer OTHER, SELFPAY ==
[2025-03-05 11:32] VITALS: BP 126/78; PULSE 79; RESP 18; TEMP 36.7; O2SAT 99; BMI 28.5
--- NOTE | 2025-03-05 11:32 | A.OFFPC_ITS ---
Vital Signs 03/05/25 11:32 Height 5 ft 3 in Weight 161 lb BMI 28.5 BP 126/78 Blood Pressure Location Lt brachial Position Sitting Respiration 18 Pulse 79 Pulse Source Pulse Oximeter Temp 98.1 F Temp Source Oral Pulse Oximetry (%) 99 Oxygen Delivery Method Room Air Intake Visit Reasons: Annual PE Intake Note: Pt is here today for PE. Pt has [employer] and had pap done 2 years ago. Allergies No Known Allergies [No Known Allergies*] Allergy (Verified 03/05/25 11:39) Medication List - Last Reconciled 03/05/25 by Jany Lockett MD azelastine 1 spray intranasal BID sennosides (Natural Senna Laxative) 8.6 mg PO BEDTIME Tobacco use date assessed: 03/05/25 Dental Screening Dental Screen Date: 03/05/25 Did you have a dental visit in the last 12 months?: Yes Did you have a dental problem in the last 6 months where you did not have access to dental care?: No Was dental information given to patient?: Patient has dentist HPI Annual PE HPI Details Patient presents for physical [facility] Medical History (Updated 03/05/25 @ 12:33 by Jany Lockett MD) H. pylori infection Normal pelvic exam Normal Pap smear Annual physical exam Knee pain, left Graves disease Helicobacter pylori gastritis Allergic rhinitis Surgical History Hx of colonoscopy History of esophagogastroduodenoscopy (EGD) Family History (Updated 03/05/25 @ 12:26 by Jany Lockett MD) Father No problems noted. 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 1. Little interest or pleasure in doing things: not at all 2. Feeling down, depressed, or hopeless: not at all 3. Trouble falling or staying asleep, or sleeping too much: not at all 4. Feeling tired or having little energy: several days 5. Poor appetite or overeating: not at all 6. Feeling bad about yourself - or that you are a failure or have let yourself or your family down: not at all 7. Trouble concentrating on things, such as reading the newspaper or watching television: not at all 8. Moving or speaking so slowly that other people could have noticed. Or the opposite - being so fidgety or restless that you have been moving around a lot more than usual: not at all 9. Thoughts that you would be better off or of hurting yourself in some way: not at all Total score: 1 Depression Screening Interpretation: Negative Depression Screening Done: Yes 29360 - PHQ-9 Billing: Yes Source: Developed by Drs. Sb Esparza, Breanna Echavarria, Justin Gamez and colleagues, with an educational damion from [employer]. Thrive Questionnaire Date Thrive assessed: 03/05/25 I am a: Patient What is your living situation today?: I have a steady place to live Within the past 12 months, did the food you bought not last and you didn't have the money to get more?: I choose not to answer this question Within the past 12 months, did you worry whether your food would run out before you got money to buy more?: Never true Do you have trouble paying for medicines?: No Do you have trouble getting transportation to medical appointments?: No Do you have trouble paying your heating and electricity bill?: No Do you have trouble taking care of your child, family member or friend?: No Do you have trouble with day-to-day activities such as bathing, preparing meals, shopping, managing finances, etc.?: No Are you currently unemployed and looking for a job?: No Are you interested in more education?: No Please select the resources that you would like help with: None Currently or been in a relationship where the following occur: I choose not to answer THRIVE Score: 0 AUDIT C Alcohol Use Questionnaire (AUDIT-C) 1. How often do you have a drink containing alcohol?: Never 3. How often do you have six or more drinks on one occasion?: Never Total Score: 0 AMIRA-7 AMB Questionnaire AMIRA-7 Date AMIRA - 7 assessed: 03/05/25 Feeling nervous, anxious, or on edge: 0 = Not at all Not being able to stop or control worryin = Not at all Worrying too much about different things: 0 = Not at all Trouble relaxin = Not at all Being so restless that it is hard to sit still: 0 = Not at all Becoming easily annoyed or irritable: 0 = Not at all Feeling afraid as if something awful might happen: 0 = Not at all Total AMIRA-7 score (0-4 normal; 5-9 mild; 10-14 moderate; 15-21 severe): 0 Source: Developed by Drs. Sb Esparza, Breanna Echavarria, Justin Gamez and colleagues, with an educational damion from [employer]. AMIRA-7 Assessment Billing AMIRA-7 Assessment Tool: AMIRA-7 Assessment 06109 Review of Systems Const All systems reviewed & are unremarkable except as noted in HPI and below Reports no additional complaints Eyes Reports no additional complaints ENT Reports no additional complaints Card Reports no additional complaints Resp Reports no additional complaints GI Reports no additional complaints Reports no additional complaints Physical exam (Primary Care) Vital Signs: Last Vital Signs Temp 98.1 F 03/05/25 11:32 Pulse 79 03/05/25 11:32 Resp 18 03/05/25 11:32 BP 126/78 03/05/25 11:32 Pulse Ox 99 03/05/25 11:32 Oxygen Delivery Method Room Air 03/05/25 11:32 BMI result Body Mass Index 28.5 Tobacco/Smoking Status: Tobacco use Status Tobacco use date assessed 03/05/25 03/05/25 11:42 Patient Tobacco Use Status Never used Tobacco 03/05/25 11:32 e-Cigarette/Vaping Use Never Used 03/05/25 11:32 PHQ-9: PHQ-9 Score PHQ-9: Total score 1 03/05/25 11:44 Depression Screening Interpretation: Negative Thrive Assessment: Date of Thrive Assessment Date Thrive assessed 03/05/25 03/05/25 11:44 Currently or been in a relationship where the following occur: I choose not to answer Const General: no acute distress HENMT Head: Yes normal to inspection Ears: TM's normal bilaterally Face and sinus: Yes normal facial exam Mouth: Normal oral and palatal mucosa present Throat: Yes posterior oropharynx normal Eyes General: appearance normal, both eyes and all related structures Neck Thyroid: diffusely enlarged Resp Effort & Inspection: normal respiratory effort Auscultation: clear to auscultation bilaterally Cardio Rhythm: regular rhythm Heart sounds: S1 normal heart sound present and S2 normal heart sound present GI Inspection: Yes normal to inspection Palpation (GI): Soft to palpation Percussion: Yes normal to percussion Auscultation: normal bowel sounds Coding Level of Care Code Est Pt Prev Care 40-64y(50446) Diagnoses Ovarian cyst N83.209 Graves disease E05.00 Annual physical exam Z00.00 Additional Codes AMIRA-7 Assessment Billing - AMIRA-7 Assessment Tool: AMIRA-7 Assessment 59403 ([id number]) PHQ-9 - 95169 - PHQ-9 Billing: Yes ([id number]) Assessment & Plan Assessment & Plan (1) Ovarian cyst: 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, [facility]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 Code(s): N83.209 - Unspecified ovarian cyst, unspecified side Category: Medical Plan: Patient is established with a school bus driver/teacher assistant for pelvic exam (2) Graves disease: Comment: f/u with Endo , off meds , TSH Q 3 months 02/15 Code(s): E05.00 - Thyrotoxicosis with diffuse goiter without thyrotoxic crisis or storm Category: Medical Plan: Check TSH obtain thyroid ultrasound (3) Annual physical exam: Code(s): Z00.00 - Encounter for general adult medical examination without abnormal findings Category: Medical Plan: Well-balanced diet regular physical activity weight loss discussed with the patient. She will return for fasting blood work. 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 crisis or storm, Z00.00 - Encounter for general adult medical examination without abnormal findings Complete Blood Count Auto Diff 1 Year E05.00 - Thyrotoxicosis with diffuse goiter without thyrotoxic crisis or storm, Z00.00 - Encounter for general adult medical examination without abnormal findings Lipid Panel 1 Year E05.00 - Thyrotoxicosis with diffuse goiter without thyrotoxic crisis or storm, Z00.00 - Encounter for general adult medical examination without abnormal findings TSH reflex Free T4 1 Year E05.00 - 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 Panel Fast 1 Year E05.00 - Thyrotoxicosis with diffuse goiter without thyrotoxic crisis or storm, Z00.00 - Encounter for general adult medical examination without abnormal findings Vitamin D 25-OH Total 1 Year E05.00 - Thyrotoxicosis with diffuse goiter without thyrotoxic crisis or storm, Z00.00 - Encounter for general adult medical examination without abnormal findings
--- OUTSIDE RECORDS SUMMARY | 2025-03-05 13:34 | XMS_ITS | Patient Health Record ---
Author Organization [facility] Address [address] [address] Care Team Providers Care Parking Ramp Attendant Name Role Phone Jany Lockett MD Primary Care Provider NARENDRA Alas Unavailable [phone] Allergies No Known Allergies Reason For Referral No Information Medications Medication SIG (Take, Route, Frequency, Duration) Notes Start Date End Date Status ZyrTEC 10 MG 1 tablet Orally Once a day for 30 day(s) Active methIMAzole 5 MG 1 tablet Orally Once a day for 30 day(s) 1/2 Tab Daily Not-Taking Social History Tobacco Use: Social History Observation Description Date Details (start date - stop date) Never Smoker NA - NA Tobacco Use/Smoking Question Answer Notes Are you a nonsmoker Alcohol Screen (Audit-C) Question Answer Notes Did you have a drink containing alcohol in the p ast year? No Points 0 Interpretation Negative Problems Problem Type SNOMED Code ICD Code Onset Dates Problem Status W/U Status Risk Notes Problem Thyrotoxicosis (68423815) Thyrotoxicosis, unspecified without thyrotoxic crisis or storm (E05.90) Active confirmed Problem Abnormal uterine bleeding ([id number]) Abnormal uterine and vaginal bleeding, unspecified (N93.9) Active confirmed Problem Imaging result abnormal (346484053) Abnormal findings on diagnostic imaging of other specified body structures (R93.89) Active confirmed Vital Signs Temperature 97.1 degrees Fahrenheit 05/09/2024 Blood pressure diastolic 80 mm Hg 05/09/2024 Height 64 in 05/09/2024 Blood pressure systolic 122 mm Hg 05/09/2024 Weight 160 lbs 05/09/2024 BMI 27.46 kg/m2 05/09/2024 Encounters Encounter Location Date Provider Diagnosis [place] [address] [facility] [address] [address] 03/28/2024 NARENDRA HOUGH Encounter for gynecological examination (general) (routine) without abnormal findings Z01.419 ; Encounter for screening mammogram for malignant neoplasm of breast Z12.31 and Encounter for screening for infections with a predominantly sexual mode of transmission Z11.3 [address] [place] [address] 05/31/2024 NAR[address]DR[address] HOUGH [address] [address] 10/04/2024 NARENDRA HOUGH [place] [address] [address] 05/09/2024 NARENDRA HOUGH Encounter for gynecological examination (general) (routine) without abnormal findings Z01.419 ; Encounter for screening mammogram for malignant neoplasm of breast Z12.31 and Left lower quadrant pain R10.32 [facility] [address] [facility] [address] [address] 06/04/2024 NARENDRA HOUGH Assessments Encounter Date Diagnosis (ICD Code) Assessment Notes Treatment Notes Treatment Clinical Notes Section Notes 03/28/2024 Encounter for gynecological examination (general) (routine) without abnormal findings (ICD-10 - Z01.419) During the visit, the following areas of concern were addressed: Discussed cervical cancer screening with either cytology alone every 3 years or high risk HPV co-testing every 5 years as per ASCCP guidelines. Advised continued annual pelvic exams. Patient encouraged to increase her level of exercise. SBE technique encouraged/tau ght. Patient reminded when annual mammogram is due. Patient encouraged to keep colon screening up to date. 05/09/2024 Encounter for gynecological examination (general) (routine) without abnormal findings (ICD-10 - Z01.419) During the visit, the following areas of concern were addressed: Discussed cervical cancer screening with either cytology alone every 3 years or high risk HPV co-testing every 5 years as per ASCCP guidelines. Advised continued annual pelvic exams. Patient encouraged to increase her level of exercise. SBE technique encouraged/tau ght. Patient reminded when annual mammogram is due. Patient encouraged to keep colon screening up to date. 05/09/2024 Encounter for screening mammogram for malignant neoplasm of breast (ICD-10 - Z12.31) 05/09/2024 Left lower quadrant pain (ICD-10 - R10.32) 03/28/2024 Encounter for screening mammogram for malignant neoplasm of breast (ICD-10 - Z12.31) 03/28/2024 Encounter for screening for infections with a predominantly sexual mode of transmission (ICD-10 - Z11.3) Plan Of Treatment Pending Test Test Name Order Date Sonohysterogram 12/22/2022 Test, Urine 01/20/2023 ULTRASOUND: PELVIC W/TRANSVAGINAL 2023 ULTRASOUND: PELVIC W/TRANSVAGINAL 2023 ULTRASOUND: PELVIC W/TRANSVAGINAL 2023 MM Digital Screening Mammogram 3D 2023 MM Digital Screening Mammogram 3D 2023 MM Digital Screening Mammogram 3D 2020 MM Digital Screening Mammogram 3D 2022 Diagnostic Right Mammo/Limited Right Ult rasound 12/22/2022 Next Appt Details Provider Name:NARENDRA Faith, 05/20/2025 08:00:00 AM, [address], [address], [place], [address], Insurance Providers Payer Name Payer Address Payer Phone Subscriber Number Group Number Insured Name Patient Relationship to Insured Coverage Start Date Coverage End Date [facility] [address] [address] [place] [address] [id number] JAME KRISHNAMURTHY Self - patient is the insured Medical (General) History Medical History History ICD Code Thyrotoxicosis, unspecified without thyr otoxic crisis or storm E05.90 Abnormal uterine and vaginal bleeding, u nspecified N93.9 Unspecified lump in the right breast, up per outer quadrant N63.11 Pruritus vulvae L29.2 Unsatisfactory cytologic smear of cervix R87.615 Surgical History Surgery Date(Month/Year) Colonoscopy 01/30/19 MOLE REMOVED FROM LT SHOULDER - benign DxC Hysteroscopy (Dr Blanc) 02/2023 Hospitalization History Reason Date(Month/Year) childbirth
--- OUTSIDE RECORDS SUMMARY | 2025-03-05 13:34 | XMS_ITS ---
Author Organization [facility] Address [address] [place], [place] [address]t [facility] [address] [place] [address] Care Team Providers Care Tailoring Teacher Name Role Phone Jany Lockett MD Primary Care Provider NARENDRA Alas Unavailable [phone] REASON FOR VISIT ULTRA- LLQ PAIN Encounters Encounter Location Date Provider Diagnosis [facility] [address] [place] [address] 05/31/2024 NARENDRA HOUGH Plan Of Treatment Next Appt Details Provider Name:NARENDRA Faith, 05/20/2025 08:00:00 AM, [address] [place] [address], [address], [place], [address], Progress Notes * RAGHU JAMEDOB:[birth year] (49 yo F)Acc No.[id number]:05/31/2024 PROGRESS NOTES Patient:?JAME KRISHNAMURTHY Provider:?NARENDRA HOUGH MD :1975???Age:48 Y???Sex:Female D ate:05/31/2024 Address:[address] [place], [place] [id number] Pcp:Jany Lockett MD Subjective: * Chief Complaints: * ???1. ULTRA- LLQ PAIN. * Medical History:? Objective: * Vitals:? Assessment: Plan: * Treatment: * Images: Billing Information: * Visit Code:? * Procedure Codes:? * Electronic signature of NARENDRA HOUGH MD on 03/05/2025 at 01:34 PM EDT Sign off status: Pending * Provider:?NARENDRA HOUGH MD Date:?2023 Generated for Braulio lovell/Colby/Diane on:?03/05/2025 01:34 PM EDT
--- OUTSIDE RECORDS SUMMARY | 2025-03-05 13:34 | XMS_ITS ---
Author Organization [facility] [employer] Address [address] [place] [address] [address] [place] [address] Care Team Providers Care Manufacturing Manager Name Role Phone Levy MCKAY, Jany Primary Care Provider NARENDRA Alas Unavailable [phone] REASON FOR VISIT ULTRA - 4 MONTH F/U BILAT OV CYSTS Encounters Encounter Location Date Provider Diagnosis [facility] [employer] [address] [place] [address] 10/04/2024 NARENDRA HOUGH Plan Of Treatment Next Appt Details Provider Name:NARENDRA Faith, 05/20/2025 08:00:00 AM, [address] [place] [address], [address], [place], [address], Progress Notes * RAGHU JAMEDOB:[birth year] (49 yo F)Acc No.[id number]:10/04/2024 PROGRESS NOTES Patient:?ZURIELIZABETHJOI VEGAIKA Provider:?NARENDRA HOUGH MD :1975???Age:48 Y???Sex:Female D ate:10/04/2024 Address:[address] [place], [place] [id number] Pcp:Jany Lockett MD Subjective: * Chief Complaints: * ???1. ULTRA - 4 MONTH F/U BI LAT OV CYSTS. * Medical History:? Objective: * Vitals:? Assessment: Plan: * Treatment: * Images: Billing Information: * Visit Code:? * Procedure Codes:? * Electronic signature of NARENDRA HOUGH MD on 03/05/2025 at 01:34 PM EDT Sign off status: Pending * Provider:?NARENDRA HOUGH MD Date:?2023 Generated for Braulio lovell/Colby/Diane on:?03/05/2025 01:34 PM EDT
--- OUTSIDE RECORDS SUMMARY | 2025-03-05 13:34 | XMS_ITS | Clinical Summary ---
Author Organization [facility] Address [address] [place] [address] Care Team Providers Care Space Systems Operations Manager Name Role Phone Jany Lockett MD Primary Care Provider [phone] Social History Tobacco Use Types Packs/Day Years Used Date Smoking Tobacco: Never Assessed Comments Unknown Sex and Gender Information Value Date Recorded Sex Assigned at Not on file Legal Sex Female 7:43 AM EST Gender Identity Not on file Sexual Orientation Not on file Last Filed Vital Signs Vital Sign Reading Time Taken Comments Blood Pressure - - Pulse - - Temperature - - Respiratory Rate - - Oxygen Saturation - - Inhaled Oxygen Concentration - - Weight 66.7 kg (147 lb) 09/24/2024 11:08 AM EDT Height 170.2 cm (5' 7 ) 09/24/2024 11:08 AM EDT Body Mass Index 23.02 09/24/2024 11:08 AM EDT Plan of Treatment Health Maintenance Due Date Last Done Comments Breast Cancer Screening 1977 DTaP,Tdap,and Td Vaccines (1 - Tdap) 1996 Hepatitis B Vaccines (1 of 3 - 19+ 3-dose series) 1996 Cervical Cancer Screening: P ap Smear 1998 COVID-19 Vaccine ( - 2023-2 5 season) 2024 Influenza Vaccine (#1) 2024 Colorectal Cancer Screening: Colonoscopy 09/28/2024 Depression Screening 09/28/2024 HIV Screening 09/28/2024 Hepatitis C Screening 09/28/2024 Social Influencers of Health Screening 09/28/2024 HIB Vaccines Aged Out No longer eligi ble based on patient's age to complete this topic HPV Vaccines Aged Out No longer eligi ble based on patient's age to complete this topic Hepatitis A Vaccines Aged Out No long er eligible based on patient's age to complete this topic IPV Vaccines Aged Out No longer eligi ble based on patient's age to complete this topic MMR Vaccines Aged Out No longer eligi ble based on patient's age to complete this topic Meningococcal ACWY Vaccine Aged Out N o longer eligible based on patient's age to complete this topic Meningococcal B Vaccine Aged Out No l onger eligible based on patient's age to complete this topic Pneumococcal Vaccine: Pediat rics (0 to 5 Years) and At-Risk Patients (6 to 64 Years) Aged Out No longer eligible b ased on patient's age to complete this topic RSV Immunization Patients Un iraj 20 months Aged Out No longer eligible b ased on patient's age to complete this topic Varicella Vaccines Aged Out No longer eligible based on patient's age to complete this topic Care Teams Space Systems Operations Manager Relationship Specialty Start Date End Date Jany Lockett MD PCP - General 11/07/08
--- OUTSIDE RECORDS SUMMARY | 2025-03-05 13:34 | XMS_ITS ---
Author Organization [facility] Address [address] [place] [address] [address] [place] [address] Care Team Providers Care Client Leader Name Role Phone Jany Lockett MD Primary Care Provider NARENDRA Alas [phone] REASON FOR VISIT 4 MONTH ULTRA F/U Encounters Encounter Location Date Provider Diagnosis [facility] [address] [place] [address] 06/04/2024 NARENDRA HOUGH Plan Of Treatment Next Appt Details Provider Name:NARENDRA Faith, 05/20/2025 08:00:00 AM, [address] [place] [address], [facility] [address], [place], [address], Progress Notes * ZURIELIZABETHARJUNJOI HameedGALENDOB:[birth year] (48 yo F)Acc No.[id number]:06/04/2024 Patient:?JAME KRISHNAMURTHY :1975???Age:48 Y???Sex:Female Address:[address] [place] [address], [address] * true * Date:? Generated for Braulio lovell/Colby/eTransmitting on:?03/05/2025 01:34 PM EDT
== END 2025-03-05 12:06 | disposition home or self-care (01) ==
LOC: HO.HMCC 11:27
PROVIDERS: PCP Internal Medicine; Visit Provider Internal Medicine
DX: N83.209 Unspecified ovarian cyst, unspecified side (principal); E05.00 Thyrotoxicosis with diffuse goiter without thyrotoxic crisis or storm; Z00.00 Encounter for general adult medical examination without abnormal findings

== ENCOUNTER → 2025-03-05 11:26 | Outpatient (BNVA) | payer OTHER, SELFPAY | PROVIDERS: PCP Internal Medicine; Visit Provider Internal Medicine | DX: Z00.00 Encounter for general adult medical examination without abnormal findings (principal); E05.00 Thyrotoxicosis with diffuse goiter without thyrotoxic crisis or storm; N83.209 Unspecified ovarian cyst, unspecified side | CPT/HCPCS: 96127; 99396 ==

== ENCOUNTER 2025-03-20 07:53 | Outpatient (REF) | payer OTHER, SELFPAY ==
--- OUTSIDE RECORDS SUMMARY | 2025-03-20 07:58 | XMS_ITS | Patient Health Record ---
Author Organization [facility] Address [address] [address] Care Team Providers Care Protective Services Social Worker Name Role Phone Jany Lockett MD Primary Care Provider NARENDRA Alas Unavailable [phone] Allergies No Known Allergies Reason For Referral [...] Status W/U Status Risk Notes Problem Thyrotoxicosis (72258718) Thyrotoxicosis, unspecified without thyrotoxic crisis or storm (E05.90) Active confirmed Problem Abnormal uterine bleeding (45175389494350) Abnormal uterine and vaginal bleeding, unspecified (N93.9) Active confirmed Problem Imaging result abnormal (253420617) Abnormal findings on diagnostic imaging of other specified body structures (R93.89) Active confirmed Vital Signs Temperature 97.1 degrees Fahrenheit 05/09/2024 Blood pressure diastolic 80 mm Hg 05/09/2024 Height 64 in 05/09/2024 Blood pressure systolic 122 mm Hg 05/09/2024 Weight 160 lbs 05/09/2024 BMI 27.46 kg/m2 05/09/2024 Encounters Encounter Location Date Provider Diagnosis [place] [address] [employer] [address] [address] 03/28/2024 NARENDRA HOUGH Encounter for gynecological examination (general) (routine) without abnormal findings Z01.419 ; Encounter for screening mammogram for malignant neoplasm of breast Z12.31 and Encounter for screening for infections with a predominantly sexual mode of transmission Z11.3 [address] [place] [address] 05/31/2024 NARENDRA HOUGH [address] [address] 10/04/2024 NARENDRA HOUGH Total [address] [address] 05/09/2024 NARENDRA HOUGH Encounter for gynecological examination (general) (routine) without abnormal findings Z01.419 ; Encounter for screening mammogram for malignant neoplasm of breast Z12.31 and Left lower quadrant pain R10.32 [address] [address] 06/04/2024 NARENDRA HOUGH Assessments Encounter Date Diagnosis [...] Provider Name:NARENDRA Faith, 05/20/2025 08:00:00 AM, [address], [address], [place], [address], Insurance Providers Payer Name Payer Address Payer Phone Subscriber Number Group Number Insured Name Patient Relationship to Insured Coverage Start Date Coverage End Date [facility] [address] [address] [place] [address] [id number] JAME KRISHNAMURTHY Self - patient is the [...]
--- OUTSIDE RECORDS SUMMARY | 2025-03-20 07:59 | XMS_ITS ---
Author Organization [facility] Address [address] [place], [place] [address] [facility] [address] [place] [address] Care Team Providers Care Forge Tender Name Role Phone Jany Lockett MD Primary Care Provider NARENDRA Alas Unavailable [phone] REASON FOR VISIT ULTRA- LLQ PAIN Encounters Encounter Location Date Provider Diagnosis [facility] [address] [place] [address] 05/31/2024 NARENDRA HOUGH Plan Of Treatment Next Appt Details Provider Name:NARENDRA Faith, 05/20/2025 08:00:00 AM, [address] [place] [address], [address], [place], [address], Progress Notes * RAGHU JAMEDOB:[birth year] (49 yo F)Acc No.[id number]:05/31/2024 PROGRESS NOTES Patient:?JAME KRISHNAMURTHY Provider:?NARENDRA HOUGH MD :1975???Age:48 Y???Sex:Female D ate:05/31/2024 Address:[address] [place], [place] [id number] Pcp:Jany Lockett MD Subjective: * Chief Complaints: * ???1. ULTRA- LLQ PAIN. * Medical History:? Objective: * Vitals:? Assessment: Plan: * Treatment: * Images: Billing Information: * Visit Code:? * Procedure Codes:? * Electronic signature of NARENDRA HOUGH MD on 03/20/2025 at 07:59 AM EDT Sign off status: Pending * Provider:?NARENDRA HOUGH MD Date:?2023 Generated for Braulio lovell/Colby/Diane on:?03/20/2025 07:59 AM EDT
--- OUTSIDE RECORDS SUMMARY | 2025-03-20 07:59 | XMS_ITS ---
Author Organization [facility] Address [address] [place] [address] [address] [place] [address] Care Team Providers Care Piper Installer Name Role Phone Jany Lockett MD Primary Care Provider NARENDRA Alas [phone] REASON FOR VISIT 4 MONTH ULTRA F/U Encounters Encounter Location Date Provider Diagnosis [facility] [address] [place] [address] 06/04/2024 NARENDRA HOUGH Plan Of Treatment Next Appt Details Provider Name:NARENDRA Faith, 05/20/2025 08:00:00 AM, [address] [place] [address], [facility] [address], [place], [address], Progress Notes * RAGHUJOIGALENDOB:[birth year] (48 yo F)Acc No.[id number]:06/04/2024 Patient:?JAME KRISHNAMURTHY :1975???Age:48 Y???Sex:Female Address:[address] [place] [address], [address] * true * Date:? Generated for Nathaliei liliya/Fanardag/eTransmitting on:?03/20/2025 07:58 AM EDT
--- OUTSIDE RECORDS SUMMARY | 2025-03-20 07:59 | XMS_ITS ---
Author Organization [facility] [employer] Address [address] [place] [address] [address] [place] [address] Care Team Providers Care Supervisor Of Operations Name Role Phone Levy MCKAY, Jany Primary Care Provider NARENDRA Alas Unavailable [phone] REASON FOR VISIT ULTRA - 4 MONTH F/U BILAT OV CYSTS Encounters Encounter Location Date Provider Diagnosis [facility] [employer] [address] [place] [address] 10/04/2024 NARENDRA HOUGH Plan Of Treatment Next Appt Details Provider Name:NARENDRA Faith, 05/20/2025 08:00:00 AM, [address] [place] [address], [address], [place], [address], Progress Notes * RAGHU JAMEDOB:[birth year] (49 yo F)Acc No.[id number]:10/04/2024 PROGRESS NOTES Patient:?ZURIELIZABETHJOI VEGAIKA Provider:?NARENDRA HOUGH MD :1975???Age:48 Y???Sex:Female D ate:10/04/2024 Address:[address] [place], [place] [id number] Pcp:Jany Lockett MD Subjective: * Chief Complaints: * ???1. ULTRA - 4 MONTH F/U BI LAT OV CYSTS. * Medical History:? Objective: * Vitals:? Assessment: Plan: * Treatment: * Images: Billing Information: * Visit Code:? * Procedure Codes:? * Electronic signature of NARENDRA HOUGH MD on 03/20/2025 at 07:59 AM EDT Sign off status: Pending * Provider:?NARENDRA HOUGH MD Date:?2023 Generated for Braulio lovell/Colby/Molinasmkerwin on:?03/20/2025 07:59 AM EDT
--- OUTSIDE RECORDS SUMMARY | 2025-03-20 07:59 | XMS_ITS | Clinical Summary ---
Author Organization [facility] Address [address] [place] [address] Care Team Providers Care Forester Silviculture Name Role Phone Jany Lockett MD Primary Care Provider [phone] Social History Tobacco Use Types Packs/Day Years [...] Screening: P ap Smear 1998 COVID-19 Vaccine (2023-2 5 season) 2024 Colorectal Cancer Screening: Colonoscopy 09/28/2024 Depression Screening 09/28/2024 HIV Screening 09/28/2024 Hepatitis C Screening 09/28/2024 Social Influencers of Health Screening 09/28/2024 Influenza Vaccine (Season Ended) 2025 HIB Vaccines Aged Out No longer eligi [...] age to complete this topic Care Teams Forester Silviculture Relationship Specialty Start Date End Date Jany Lockett MD PCP - General 11/07/08
[2025-03-20 10:16] LABS: MANUAL DIFF FLAG NO
[2025-03-20 10:28] LABS: Basophils Percent Auto 0.8 % (0-2); Eosinophils Absolute Auto 0.2 X10*3/uL (0.0-0.4); Eosinophils Percent Auto 4.7 % (0-4); Hematocrit 32.9 % (37.0-47.0); Hemoglobin 10.4 g/dl (12.0-16.0); Imm Gran Abs Auto 0.01 X10*3/uL (0.00-0.03); Imm Gran Pct Auto 0.3 % (0.0-0.4); Lymphocytes Absolute Auto 1.5 X10*3/uL (1.2-4.9); Lymphocytes Percent Auto 39.7 % (20-40); Mean Corpuscular HGB Conc 31.6 g/dl (31.0-35.0); Mean Corpuscular Hemoglobin 25.1 pg (27.0-33.0); Mean Corpuscular Volume 79.5 fL (80.0-98.0); Mean Platelet Volume 11.1 fL (9.4-12.3); Monocytes Absolute Auto 0.4 X10*3/uL (0.1-1.2); Monocytes Percent Auto 9.7 % (2-11); Neutrophils Absolute Auto 1.7 x10*3/uL (2.0-8.3); Neutrophils Percent Auto 44.8 % (45-73); Platelet Count 207 X10*3/uL (160-400); Red Blood Count 4.14 X10*6/uL (4.20-5.50); Red Cell Distribution Width 15.5 % (11.0-16.0); White Blood Count 3.8 X10*3/uL (4.8-10.8)
[2025-03-20 11:20] LABS: Alanine Aminotransferase 19 U/L (0-31); Alkaline Phosphatase 55 U/L (39-117); Anion Gap 10 (12-20); Aspartate Amino Transferase 21 U/L (5-31); Bilirubin Total 0.2 mg/dL (0.0-1.0); Blood Urea Nitrogen 20 mg/dL (9-16); Calcium 8.9 mg/dL (8.4-10.2); Carbon Dioxide 24 mmol/L (22-29); Chloride 108 mmol/L (96-108); Cholesterol 199 mg/dL (<200); Estimated Glomerular Filt Rate > 60; Glucose Fasting 97 mg/dL (60-99); HDL Cholesterol 61 mg/dL (>40); LDL Cholesterol Calculated 125 mg/dL (<100); Potassium 4.2 mmol/L (3.3-5.1); Sodium 138 mmol/L (135-145); Total Protein 6.6 g/dL (6.5-8.0); Triglycerides 67 mg/dL (<150)
[2025-03-20 11:21] LABS: Appearance Urine Clear; Color Urine Yellow; Glucose Urine UA Negative (Negative); Leukocyte Esterase Urine Negative (Negative); Nitrite Urine Negative (Negative); PH 6.5 (5.0-9.0); Specific Gravity - Urine >= 1.030 (1.005-1.025); TSH reflex Free T4 3.31 uIU/mL (0.32-4.0); UMIC TRIGGER UA YES; Urine Blood Trace (Negative); Urine Ketones Negative (Negative); Urine Protein Negative (Neg-Trace)
[2025-03-20 11:23] LABS: Vitamin D 25-OH Total 28.1 ng/mL (>30)
[2025-03-20 11:25] LABS: Bacteria Urine Trace (None Seen); Hyaline Casts Urine 0-2 /LPF (0-2)
[2025-03-21 21:18] LABS: Thyroid Peroxidase Antibodies 302 IU/mL (<9)
== END 2025-03-20 07:54 | disposition home or self-care (01) ==
LOC: HO.HMGCLDS 07:53
PROVIDERS: Nurse Practitioner; PCP Internal Medicine; Visit Provider Internal Medicine
DX: Z00.00 Encounter for general adult medical examination without abnormal findings (principal); R13.13 Dysphagia, pharyngeal phase; K62.5 Hemorrhage of anus and rectum; K59.04 Chronic idiopathic constipation; E05.00 Thyrotoxicosis with diffuse goiter without thyrotoxic crisis or storm
CPT/HCPCS: 36415; 80053; 80061; 81001; 82306; 84443; 85025; 86376

== ENCOUNTER 2025-03-21 11:24 | Outpatient (REF) | payer OTHER, SELFPAY ==
--- NOTE | ~2025-03-21 | US_ITS ---
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 COMPARISON: March 30, 2023 TECHNIQUE: Linear transducer grayscale and color Doppler examination with attention to the region of the thyroid. FINDINGS: SIZE: Measurements of the thyroid lobes and nodules are given in sagittal, anteroposterior and transverse dimensions respectively. Right Thyroid Lobe: 5.7 x 2.2 x 1.8 cm, volume 11.6 mL Previously: 5.7 x 2.4 x 2.2 cm and volume: 16 cc. Parenchyma: The gland echotexture is normal. Thyroid vascularity is normal. Left Thyroid Lobe: 4.7 x 1.7 x 1.8 cm, volume 4.7 mL. Previously: 4.8 x 1.6 x 1.6 cm and volume: 6.4 cm. Parenchyma: The gland echotexture is normal. Thyroid vascularity is normal. Isthmus: 0.5 cm in maximum AP dimension, previously 0.5 cm.. Estimated total number of nodules greater than or equal to 1 cm: 0. Timber Treating Tank Operator nodules are described as follows: NODES: No lymphadenopathy is seen in the tissue surrounding the thyroid gland. US/US thyroid IMPRESSION: No dominant nodules. ACR TI-RADS 0 ACR TI-RADS RECOMMENDATION REFERENCE: Ultrasound-guided fine-needle aspiration, followup ultrasound, no further follow up. * TR1 (0 point) and TR2 (2 points): No FNA or follow up. * TR3 (3 points): FNA if more than or equal to 2.5 cm in maximum dimension, followup ultrasound in 1, 3 and 5 years if 1.5 to 2.4 cm in maximum dimension. * TR4 (4-6 points): FNA if more than or equal to 1.5 cm in maximum dimension, followup ultrasound in 1, 2, 3 and 5 years if 1 to 1.4 cm in maximum dimension. * TR5 (more than or equal to 7 points): FNA if more than or equal to 1 cm in maximum dimension, followup ultrasound every year for 5 years if 0.5 to 0.9 cm in maximum dimension. * TR3, TR4 or TR5 nodules that are below the size threshold for followup receive no follow up. Electronically signed by: Arnaud Rey MD 03/24/2025 04:00 PM EDT
--- OUTSIDE RECORDS SUMMARY | 2025-03-21 12:19 | XMS_ITS | Patient Health Record ---
Author Organization [facility] Address [address] [address] Care Team Providers Care Claims Attorney Name Role Phone Jany Lockett MD Primary Care Provider NARENDRA Alas Unavailable [phone] Allergies No Known Allergies Reason For Referral [...] Status W/U Status Risk Notes Problem Thyrotoxicosis (69100419) Thyrotoxicosis, unspecified without thyrotoxic crisis or storm (E05.90) Active confirmed Problem Abnormal uterine bleeding (07282672211237) Abnormal uterine and vaginal bleeding, unspecified (N93.9) Active confirmed Problem Imaging result abnormal (169056653) Abnormal findings on diagnostic imaging of other specified body structures (R93.89) Active confirmed Vital Signs Temperature 97.1 degrees Fahrenheit 05/09/2024 Blood pressure diastolic 80 mm Hg 05/09/2024 Height 64 in 05/09/2024 Blood pressure systolic 122 mm Hg 05/09/2024 Weight 160 lbs 05/09/2024 BMI 27.46 kg/m2 05/09/2024 Encounters Encounter Location Date Provider Diagnosis [place] [address] [facility] [address] [address] 03/28/2024 NARENDRA HOUGH Encounter for gynecological examination (general) (routine) without abnormal findings Z01.419 ; Encounter for screening mammogram for malignant neoplasm of breast Z12.31 and Encounter for screening for infections with a predominantly sexual mode of transmission Z11.3 [facility] [address] [address] [place] [address] 05/31/2024 NARENDRA HOUGH [address] [address] 10/04/2024 NARENDRA HOUGH Total [address] [address] 05/09/2024 NARENDRA HOUGH Encounter for gynecological examination (general) (routine) without abnormal findings Z01.419 ; Encounter for screening mammogram for malignant neoplasm of breast Z12.31 and Left lower quadrant pain R10.32 [facility] [address] [facility] [facility] [address] [address] 06/04/2024 NARENDRA HOUGH Assessments Encounter Date Diagnosis [...] Provider Name:NARENDRA Faith, 05/20/2025 08:00:00 AM, [address], [address], [place], [address], Insurance Providers Payer Name Payer Address Payer Phone Subscriber Number Group Number Insured Name Patient Relationship to Insured Coverage Start Date Coverage End Date [facility] [address] [address] [place] [id number] JAME KRISHNAMURTHY Self - patient is the [...]
--- OUTSIDE RECORDS SUMMARY | 2025-03-21 12:19 | XMS_ITS | Data Portability ---
Author Organization [place] - [facility], Allergy Address [address] [place] [address] Care Team Providers Care Aoc Plans Intelligence Officer Name Role Phone LINDA AREVALO Primary Care Provider [phone] SONNY SMITH OTHER Assessment Encounter Date Assessment Date Assessment LastModified by Organization Details LastModified Time 08/01/2024 08/01/2024 1.5 year of sensation of something sticking in her throat. 7 months of change in taste where she has salty or sweet taste when not eating. No GERD or heartburn. In November she had barium swallow with PCP--reports it was normal No sore throat or ear pain No tobacco No alcohol No drugs Has allergy congestion and PND --no change with INS Hx of Grave's disease and hyperthyroidism Exam shows turbinate hypertrophy and mild enlargement of thryoid [email or web address] Not available 08/01/2024 11:36:25 10/25/2024 10/25/2024 48-year-old female presents for review of allergy testing. Symptoms are improved with Astelin. Allergy testing demonstrated mild reaction to Margarita and penicillin molds. She may continue with Astelin given improvement in symptoms. We will also arrange for CT sinus for further evaluation of her symptoms. She will follow-up to review the results. [email or web address] Not available 10/25/2024 11:10:26 11/21/2024 11/21/2024 Patient with allergic rhinitis and turbinate hypertrophy. Persistent nasal obstruction despite use of Astelin. I have suggested she use fluticasone nasal spray 2 sprays each nostril in the morning and azelastine 2 sprays each nostril twice daily. We will try this over the next 3 to 4 months. If she has persistent congestion, we can consider turbinate reduction at some point in the future [email or web address] Not available 11/21/2024 08:49:10 Plan of Treatment Reminders Order Date Submit Date Provider Last Modified By Organization Details Last Modified Time Details Appointments None recorded. Lab None recorded. Referral None recorded. Procedures allergy testing, skin prick (PROC) 2023 024 [email or web address] Not available 4 09:11:10 intradermal allergy skin testing (PROC) 2023 024 skorzec Not available 4 09:11:17 pulmonary function test procedure (PROC) 2023 orze Not available 4 09:11:25 pulse oximetry (PROC) 2023 024 orze Not available 4 09:11:32 Surgeries None recorded. Imaging CT, sinuses, w/o contrast - follow up with 2023 [place] [facility] [place], [address] [facility], [place] [address], [place], [address], 03:42:17 Medication Orders azelastine 137 mcg (0.1 %) nasal spray 2023 [facility]acy #[id number], [address] [place], [address], 4 08:49:49 fluticasone propionate 50 mcg/actuati on nasal spray,suspe nsion 2023 [facility] #[id number], [address] [place], [address], 4 08:49:49 azelastine 137 mcg (0.1 %) nasal spray 2023 024 [facility] #[id number], [address] [place], [address], 11:40:46 Patient TargetsNo targets recorded. Patient Instructions Encounter Date Encounter Id Patient Instructions Last Modified By Organization Details Last Modified Time 08/15/2024 [id number] Nursing Documentation for Allergy Testing: Ordering Provider {{Dr. Sun Mujica*}} Weight:157lbs:? ? ?kg: ? ? ? PFT {{Yes* no}} With Bronchodilator {{Yes no*}} approval needed to proceed with allergy testing? {{Yes No}} {{Dr. Sun Mujica}} ok'd testing {{Yes No Pulmonar y Clearance PCP Clearance RAST}}H istory of Asthma:{{Yes No*} } Asthma Meds: ? ? ?Last used:? ? ? Asthma exacerbated by: ? ? ? Chance that : {{Yes No* Not Sure N/A}} Fear of needles: {{Yes No*}} Regular medications reviewed in Computer: {{Yes* No}} Medication allergies: {{Reviewed NKDA*} } Antihistamine use: {{Yes* No}} Medications used: ganesh and azelastine ? ? ? Food Allergies: ? ? ? no Any foods make your mouth feeling itchy: {{Yes No*}} If yes: ? ? ? History of severe reaction where had to go to ER? {{Yes No*}} If yes details: ? ? ? 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 ? ? Smoker: {{Yes Current Never* Fo rmer}} If former smoker-how much ? ? ? / day for how long ? ? ? When quit ? ? ? years ago Smoking now-how much ? ? ? /day for how long ? ? ? 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 ? ? Symptoms having: {{Congestion Post Nasal Drip Headache Run ny Nose* Cough Other }} If other: ? ? ? Frequency {{Seasonally Year Round*}} Spirometry Contraindications : Heart attack in the last 3 months: {{Yes No*}} Major surgery in last 3 months: {{Yes No*}} Detached retina(serious eye issues) in last 2 months: {{Yes No*}} Hospitilization in last month: {{Yes No*}} Proceed with PFT {{Yes* No}} approval needed: {{Yes No*}} Nursing Notes: Pt tolerated test well {{Yes* No}} Benadryl cream to test sites {{Yes No*}} Patient became syncopal-placed in supine position {{Yes No*}} Large reactions to MQT, reschedule IDT for a different date {{Yes No*}} Other: ? ? ? Written by: {{Belgica Ludwig, KEAGAN Avila, RMA* Janis Westfall}} [facility] [place] Not available 08/15/2024 09:28:14 02/26/2025 [id number] Patient with chronic nasal congestion with minimal allergy noted on testing. She had CT scan which showed trace right maxillary sinus thickening and mild septal deviation to the left side. She feels improved with Astelin and fluticasone nasal spray. Examination shows mild nasal valve collapse, 2+ turbinate hypertrophy and mild septal deviation to the left side. We discussed that as long as she is doing well with the 2 sprays she can continue with medical therapy. If she is interested in surgery which would include turbinate reduction, septoplasty and nasal valve reconstruction she will contact the office dora Not available 02/26/2025 09:20:32 Reason for Referral None Reported. Results Created Date Observation Date Name Description Value Unit Range Abnormal Flag Note LastModifiedBy Organization Detail LastModifiedTime 08/15/20 24 07/17/2024 PFT, compl ete No observ ation record ed. [facility] [id number] 08/15/2024 10:18:09 11/04/20 24 11/01/2024 CT, sinus es, w/o contr ast No observ ation record ed. [email or web address] [facility] [address], [address], 11/07/2024 13:00:13 11/04/20 24 11/01/2024 CT, sinus es, w/o contr ast No observ ation record ed. [email or web address] [facility] [address] [facility] [address], [place], [address], 11/07/2024 16:10:22 Result Notes None recorded. Problems Name Problem SNOMED Code Status Onset Date Resolution Date Notes Provider Name and Address Organization Details Recorded Time Hypertrophy of nasal turbinates 00899762 Active 2023 CIELO BURT MD [address] [address], [employer] [place], [address], [facility] [place] 11:37:07 Chronic pharyngitis 200356 Active 2023 CIELO BURT MD [address] [address], [place], [address], [facility] - [facility] [place] 11:37:12 Allergic rhinitis 55727811 Active 2023 CIELO BURT MD [address] [address], [place], [address], [facility] [place] 11:39:36 Goiter 9511484 Active 2023 CIELO BURT MD [address] [address], [place], 9, [facility] - [facility] [place] 11:39:59 Seasonal allergic rhinitis 366725167 Active 2023 CIELO BURT MD [address] [address], [place], [address], [facility] - [facility] [place] 11:40:25 Non-allergi c rhinitis 873600128036 Active 2023 CIELO BURT MD [address] [address], [place], [address], [facility] [place] 11:40:25 Nasal congestion 37095932 Active 2023 WARNER LEVINE PA-C [address] [address], [place], [address], [facility] - [facility] [place] 4 11:08:20 Chronic sinusitis 10610050 Active 2023 WARNER LEVINE PA-C [address] [facility] [address], [facility] [place], [address], [place] - [facility] [place] 4 12:59:37 Incompetenc e of nasal valve 656672048 Active 2024 CIELO BURT MD [address] [facility], [address], [facility] [place], [address], [facility] - [facility] [place] 5 09:21:46 Deviated nasal septum 382684273 Active 2024 CIELO BURT MD [address] [facility] 100, [facility] [place], [address], [facility] - [facility] [place] 5 09:21:50 Problem Notes None recorded. Procedures Surgical History Date Name Laterality Status Provider Name and Address Organization Details Recorded Time 08/15/20 24 Allergy Testing-Full completed MIKEY ZHENG [address] [facility] [address], [place], [address], [facility] - [facility] [place] 08/15/2024 10:01:14 08/01/20 24 Fiberoptic Laryngoscopy (Comprehensive) completed CIELO MUJICA MD [address] [facility],[address] [address], [place], [address], [facility] - [facility] 08/01/2024 11:39:05 excision of uterine polyp completed Alexa Florian [place] - [facility] [place] 02/26/2025 09:06:55 Imaging Results Imaging Date Name Status LastModified by Organiz aton license [facility] Details LastModified Time 07/17/2024 PFT, complete completed [email or web address] [id number] 08/15/2024 10:18:09 11/01/2024 CT, sinuses, w/o contrast completed [email or web address] [facility] [address] [facility] [address], [place], [address], 11/07/2024 13:00:13 11/01/2024 CT, sinuses, w/o contrast completed [email or web address] [facility] [address] [address], [place], [address], 11/07/2024 16:10:22 Procedure Notes None recorded. Medical Equipment None Reported. Allergies No known drug allergies Medications Name Sig Start Date Stop Date Status Note LastModified by Organization Details LastModified Time senna 8.6 mg tablet TAKE 2 TABLETS BY MOUTH AT BEDTIME 08/01 completed Not Available Not Available Not Available benzonatate 100 mg capsule TAKE 1 CAPSULE BY MOUTH THREE TIMES A DAY NOT COVERED 08/01 completed Not Available Not Available Not Available azelastine 137 mcg (0.1 %) nasal spray SPRAY 2 SPRAYS BY INTRANASA L ROUTE TWICE A DAY active Not Available Not Available No t Available fluticasone propionate 50 mcg/actuati on nasal spray,suspe nsion Salyer 1 spray every day by intranasa l route. active Not Available Not Available No t Available amoxicillin 875 mg-potassiu m clavulanate 125 mg tablet Take 1 tablet every 12 hours by oral route for 10 days. 11/21 completed Not Available Not Available Not Available azithromyci n 500 mg tablet TAKE 1 TABLET BY MOUTH EVERY DAY FOR 3 DAYS 08/01 completed Not Available Not Available Not Available Gavilax 17 gram/dose oral powder 238 G ORALLY ONCE FOR 1 DAY TAKE DIRECTED BY MOUTH THE DAY BEFORE YOUR PROCEDURE . 11/21 completed Not Available Not Available Not Available Vitals Date Recorded Body height Body weight Provider Name and Address Organization Details Last Updated DateTime 02/26/2025 160.02 cm 05583 g Alexa Florian [place] [facility] 02/26/2025 09:06:19 Date Recorded Body height Body mass index (BMI) Body weight Heart rate Oxygen saturation Oxygen saturation in Arterial blood by Pulse oximetry Systolic blood pressure Diastolic blood pressure Provider Name and Address Organization Details Last Updated DateTime 160.02 cm 27.8 kg/m2 97311 g 80 /min 98 % 98 % 123 mm[Hg] 78 mm[Hg] NEVAEH AVILA, [facility] [address], [address], [place] [facility] [place] 09:15:04 Date Recorded Body height Provider Name an d Address Organization Details Last Updated DateTime 10/25/2024 160.02 cm Erick Mo [place] [facility] [place] 10/25/2024 10:09:11 Date Recorded Systolic blood pressure Diastolic blood pressure Provider Name and Address Organization Details Last Updated DateTime 08/01/2024 144 mm[Hg] 87 mm[Hg] CIELO MUJICA MD [address] [place] [address], [address], [place] [facility] [place] 08/01/2024 11:43:49 Social History None recorded. Functional Status None recorded. Mental Status None recorded. Family History Nothing Reported. Medical History No medical history recorded. Gynecological HistoryNo gynecological history recorded. Obstetrics History GPAL:G 0 P 0 0 0 0 Past Encounters Encounter ID Performer Location Encounter Start Date Encounter Closed Date Diagnosis/Indication Diagnosis SNOMED-CT Code Diagnosis ICD10 Code Diagnosis Note [id number] CIELO POP MD [facility] [address] [address] 08/01/2024 10:53:32 08/01/2024 11:45:34 Hypertrophy of nasal turbinates 63740423 J34.3 Chronic pharyngitis 1400 04 J31.2 Allergic rhinitis 891027 04 J30.9 Examinatio n shows turbinate hypertroph y, mild goiter and a normal larynx. Suggest a trial of Astelin nasal spray and allergy skin testing. If no improvemen t and workup is negative consider CT of the sinuses. Goiter 5496996 E04.9 Seasonal a llergic rhinitis 587759017 J30.2 Non-allergic rhinitis 31 57909790 01 J31.0 [id number] NEVAEH AVILA [facility] [address] [place] [address] [place] [address] 08/15/2024 08:56:40 08/15/2024 10:32:07 Allergic rhinitis 48436588 J30.9 [id number] TONO MASTERSON MD [facility] [address] [address] 10/25/2024 10:07:31 10/25/2024 10:58:29 Allergic rhinitis 19444625 J30.89 Nasal congestion 0669558 0 R09.81 [id number] CIELO POP MD [facility] [address] [address] 11/21/2024 08:29:24 11/21/2024 16:25:14 Allergic rhinitis 53043545 J30.9 Examinatio n shows turbinate hypertroph y, mild goiter and a normal larynx. Suggest a trial of Astelin nasal spray and allergy skin testing. If no improvemen t and workup is negative consider CT of the sinuses. Hypertroph y of nasal turbinates 61768783 J34.3 Seasonal a llergic rhinitis 694058578 J30.2 [id number] CIELO POP MD [facility] [address] [address] 02/26/2025 08:59:47 02/26/2025 09:24:10 Allergic rhinitis 25951540 J30.9 Examinatio n shows turbinate hypertroph y, mild goiter and a normal larynx. Suggest a trial of Astelin nasal spray and allergy skin testing. If no improvemen t and workup is negative consider CT of the sinuses. Incompeten ce of nasal valve 653163291 J34.89 Deviated nasal septum 12 2013043 J34.2 Health Concerns Section Related Observation LastModified by Organization Detai ls LastModified Time None Recorded Concern Status LastModified by Organization Details LastModified Time None Recorded Advance Directives Directive None Recorded Payers Encounter Date Sequence Insurance Name Policy Number Policy Corley Covered Member ID Corley Member ID Guarantor Name 08/01/[address] [facility] NET PLAN (MEDICAID HMO) [facility] Ama Surowiec [id number] Ama Surowiec 08/15/[address] [facility] PLAN (MEDICAID HMO) [facility] Ama Surowiec [id number] Ama Surowiec 10/25/[address] [facility] PLAN (MEDICAID HMO) [facility] Ama Surowiec [id number] Ama Surowiec 11/21/2024 1 [facility] PLAN (MEDICAID HMO) [facility] [id number] Ama Fonsecaowie 02/26/2025 1 [facility] (MEDICAID HMO) [facility] Al[facility] [id number] Ama Alvaradoie Notes Date Note Type Note Provider Name and Address Organization Details Recorded Time 08/01/2024 text/html 1.5 year of sens ation of something sticking in her throat. 7 months of change in taste where she has salty or sweet taste when not eating. No GERD or heartburn. In November she had barium swallow with PCP--reports it was normalNo sore throat or ear painNo tobaccoNo alcoholNo drugsHas allergy congestion and PND --no change with INSHx of Grave's disease and hyperthryoidism CIELO MUJICA MD [address] [place] [address],[address], [address], [place] - [facility] 08/01/2024 11:43:53 10/25/2024 text/html 48-year-old valentina gardiner presents for follow-up of nasal congestion. She underwent allergy testing and started trial of azelastine. She notes improvement in nasal congestion with Astelin. Does still have concerns about change in taste where things will sometimes taste salty or sweet when she is not eating. FOL was benign at previous visit. Denies headaches and PND. TONO MASTERSON MD [address] [facility],[address], [address], [facility] - [facility] 10/28/2024 09:08:45 11/21/2024 text/html f/u nasal conges tion. CT scan max thickening on right without [facility] obstructionNo a/f levels previous skin testing showed reactivity to Margarita and penicillium mold. Presently taking azelastine only. No asthma CIELO MUJICA MD [address] [facility],[address] [address], [place], [address], [facility] - [facility] 11/21/2024 08:50:31 02/26/2025 text/html Patient with chr onic nasal congestion with minimal allergy noted on testing. She had CT scan which showed trace right maxillary sinus thickening and mild septal deviation to the left side. She feels improved with Astelin and fluticasone nasal spray. CIELO MUJICA MD [address] [place] [address], [place], [address], [facility] - [facility] 02/26/2025 09:22:38 OBGyn Episode No OBEpisode recorded.
--- OUTSIDE RECORDS SUMMARY | 2025-03-21 12:19 | XMS_ITS | Clinical Summary ---
Author Organization [facility] Address [address] [place] [address] Care Team Providers Care Lock Assembler Name Role Phone Jany Lockett MD Primary Care Provider [phone] Social History Tobacco Use Types Packs/Day Years [...] age to complete this topic Care Teams Lock Assembler Relationship Specialty Start Date End Date Jany Lockett MD PCP - General 11/07/08
--- OUTSIDE RECORDS SUMMARY | 2025-03-21 12:20 | XMS_ITS ---
Author Organization [facility] Address [address] [place] [address] [address] [place] [address] Care Team Providers Care Traffic And Transport Planner Name Role Phone Jany Lockett MD Primary Care Provider NARENDRA Alas [phone] REASON FOR VISIT 4 MONTH ULTRA F/U Encounters Encounter Location Date Provider Diagnosis [facility] [address] [place] [address] 06/04/2024 NARENDRA HOUGH Plan Of Treatment Next Appt Details Provider Name:NARENDRA Faith, 05/20/2025 08:00:00 AM, [address] [place] [address], [address], [place], [address], Progress Notes * LUISJOI HameedGALENDOB:[birth year] (48 yo F)Acc No.[id number]:06/04/2024 Patient:?JAME KRISHNAMURTHY :1975???Age:48 Y???Sex:Female Address:[address] [place] [address], [address] * true * Date:? Generated for Nathaliei liliya/Colby/eTransmitting on:?03/21/2025 12:19 PM EDT
--- OUTSIDE RECORDS SUMMARY | 2025-03-21 12:20 | XMS_ITS ---
Author Organization [facility] [employer] [facility] Address [address] [place], [place] [address] [facility] [address] [place] [address] Care Team Providers Care Cafe Helper Name Role Phone Jany Lockett MD Primary Care Provider NARENDRA Alas Unavailable [phone] REASON FOR VISIT ULTRA- LLQ PAIN Encounters Encounter Location Date Provider Diagnosis [facility] [employer] [address] [place] [address] 05/31/2024 NARENDRA HOUGH Plan Of Treatment Next Appt Details Provider Name:NARENDRA Faith, 05/20/2025 08:00:00 AM, [address] [place] [address], [address], [place], [address], Progress Notes * RAGHU JAMEDOB:[birth year] (49 yo F)Acc No.[id number]:05/31/2024 PROGRESS NOTES Patient:?JAME KRISHNAMURTHY Provider:?NARENDRA HOUGH MD :1975???Age:48 Y???Sex:Female D ate:05/31/2024 Address:[address] [place], [place] [address] Pcp:Jany Lockett MD Subjective: * Chief Complaints: * ???1. ULTRA- LLQ PAIN. * Medical History:? Objective: * Vitals:? Assessment: Plan: * Treatment: * Images: Billing Information: * Visit Code:? * Procedure Codes:? * Electronic signature of NARENDRA HOUGH MD on 03/21/2025 at 12:19 PM EDT Sign off status: Pending * Provider:?NARENDRA HOUGH MD Date:?2023 Generated for Braulio lovell/Colby/Diane on:?03/21/2025 12:19 PM EDT
--- OUTSIDE RECORDS SUMMARY | 2025-03-21 12:20 | XMS_ITS ---
Author Organization [facility] [employer] [facility] Address [address] [place] [address] [address] [place] [address] Care Team Providers Care Nozzle Worker Name Role Phone Levy MCKAY, Jany Primary Care Provider NARENDRA Alas Unavailable [phone] REASON FOR VISIT ULTRA - 4 MONTH F/U BILAT OV CYSTS Encounters Encounter Location Date Provider Diagnosis [facility] [employer] [address] [place] [address] 10/04/2024 NARENDRA HOUGH Plan Of Treatment Next Appt Details Provider Name:NARENDRA Faith, 05/20/2025 08:00:00 AM, [address] [place] [address], [address], [place], [address], Progress Notes * RAGHU JAMEDOB:[birth year] (49 yo F)Acc No.[id number]:10/04/2024 PROGRESS NOTES Patient:?ZURIELIZABETHJOI VEGAIKA Provider:?NARENDRA HOUGH MD :1975???Age:48 Y???Sex:Female D ate:10/04/2024 Address:[address] [place], [place] [address] Pcp:Jany Lockett MD Subjective: * Chief Complaints: [...]
== END 2025-03-21 11:25 | disposition home or self-care (01) ==
LOC: HO.HMGCX 11:24
PROVIDERS: PCP Internal Medicine; Visit Provider Internal Medicine
DX: E05.00 Thyrotoxicosis with diffuse goiter without thyrotoxic crisis or storm (principal)
CPT/HCPCS: 76536

== ENCOUNTER → 2025-03-21 11:25 | Outpatient (BNV) | payer OTHER, SELFPAY | PROVIDERS: PCP Internal Medicine; Visit Provider Radiology Diagnostic Radiology | DX: E05.00 Thyrotoxicosis with diffuse goiter without thyrotoxic crisis or storm (principal) | CPT/HCPCS: 76536 ==

== ENCOUNTER 2025-03-28 08:14 | Outpatient (REF) | payer SELFPAY ==
--- OUTSIDE RECORDS SUMMARY | 2025-03-28 08:28 | XMS_ITS | Data Portability ---
Author Organization [place] [facility], Allergy Address [address] [place] [address] Care Team Providers Care Payroll Processor Name Role Phone LINDA AREVALO Primary Care Provider SONNY SMITH OTHER Assessment Encounter Date Assessment [...] She will follow-up to review the results. Not available 10/25/2024 11:10:26 11/21/2024 11/21/2024 Patient [...] w/o contrast - follow up with 2023 [place] [facility], [address] [facility], [place] [address], [place], [address], 03:42:17 Medication Orders azelastine 137 mcg (0.1 %) nasal spray 2023 [id number], [address] [place], [address], 4 08:49:49 fluticasone propionate 50 mcg/actuati on nasal spray,suspe nsion 2023 [id number], [address] [place], [address], 4 08:49:49 azelastine 137 mcg (0.1 %) nasal spray 2023 024 [id number], [address] [place], [address], 11:40:46 Patient TargetsNo targets recorded. Patient Instructions Encounter Date Encounter Id Patient Instructions Last Modified By Organization Details Last Modified Time 08/15/2024 [id number] Nursing Documentation for Allergy Testing: Ordering Provider [...] long ? ? ? 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 ? ? Symptoms having: {{Congestion Post [...] {{Belgica Ludwig, KEAGAN Avila, RMA* Janis Westfall}} [facility] Not available 08/15/2024 09:28:14 02/26/2025 [id number] Patient with chronic nasal congestion with minimal [...] compl ete No observ ation record ed. [facility] [id number] 08/15/2024 10:18:09 11/04/20 24 11/01/2024 CT, sinus es, w/o contr ast No observ ation record ed. [email or web address] [facility] [address], [address], 11/07/2024 13:00:13 11/04/20 24 11/01/2024 CT, sinus es, w/o contr ast No observ ation record ed. [email or web address] [facility] [address] [facility] [address], [place], [address], 11/07/2024 16:10:22 Result Notes None recorded. Problems Name Problem SNOMED Code Status Onset Date Resolution Date Notes Provider Name and Address Organization Details Recorded Time Hypertrophy of nasal turbinates 58320415 Active 2023 CIELO BURT MD [address] [address], [place], [address], [facility] [place] 11:37:07 Chronic pharyngitis 135583 Active 2023 CIELO BURT MD [address] [address], [place], [address], [facility] [place] 11:37:12 Allergic rhinitis 60651947 Active 2023 CIELO BURT MD [address] [address], [place], [address], [facility] [place] 11:39:36 Goiter 1046400 Active 2023 CIELO BURT MD [address] [address], [place], [address], [facility] [place] 11:39:59 Seasonal allergic rhinitis 987437966 Active 2023 CIELO BURT MD [address] [address], [place], [address], [facility] [place] 11:40:25 Non-allergi c rhinitis 317485113147 Active 2023 CIELO BURT MD [address] [address], [place], [address], [facility] [place] 11:40:25 Nasal congestion 91462469 Active 2023 WARNER LEVINE PA-C [address] [address], [place], [address], [facility] - [facility] [place] 4 11:08:20 Chronic sinusitis 53470510 Active 2023 WARNER LEVINE PA-C 100 [facility] 100, [facility] [place], [address], [place] [facility] 4 12:59:37 Incompetenc e of nasal valve 081052529 Active 2024 CIELO BURT MD 100 [facility], [address], [facility] [place], [address], [facility] - [facility] [place] 5 09:21:46 Deviated nasal septum 224943079 Active 2024 CIELO BURT MD 100 [facility] 100, [facility] [place], [address], [facility] - [facility] [place] 5 09:21:50 Problem Notes None recorded. Procedures Surgical History Date Name Laterality Status Provider Name and Address Organization Details Recorded Time 08/15/20 24 Allergy Testing-Full completed MIKEY ZHENG 100 [facility] 100, [place], [address], [facility] - [facility] 08/15/2024 10:01:14 08/01/20 24 Fiberoptic Laryngoscopy (Comprehensive) completed CIELO MUJICA MD 100 [facility],[address] [address], [place], [address], [facility] 08/01/2024 11:39:05 excision of uterine polyp completed Alexa Florian [place] - [facility] [place] 02/26/2025 09:06:55 Imaging Results Imaging Date Name Status LastModified by [facility] Details LastModified Time 07/17/2024 PFT, complete completed [email or web address] [id number] 08/15/2024 10:18:09 11/01/2024 CT, sinuses, w/o contrast completed [email or web address] [facility] [address] [facility] [address], [place], [address], 11/07/2024 13:00:13 11/01/2024 CT, sinuses, w/o contrast completed [email or web address] [facility] [address] [address], [place], [address], 11/07/2024 16:10:22 Procedure Notes None recorded. Medical [...] propionate 50 mcg/actuati on nasal spray,suspe nsion [place] 1 spray every day by intranasa l [...] Details Last Updated DateTime 02/26/2025 160.02 cm 68892 g Alexa Florian [place] [facility] 02/26/2025 09:06:19 Date Recorded Body height Body mass index (BMI) Body weight Heart rate Oxygen saturation Oxygen saturation in Arterial blood by Pulse oximetry Systolic blood pressure Diastolic blood pressure Provider Name and Address Organization Details Last Updated DateTime 160.02 cm 27.8 kg/m2 75570 g 80 /min 98 % 98 % 123 mm[Hg] 78 mm[Hg] NEVAEH AVILA, [facility], [facility] [address], [address], [place] [facility] 09:15:04 Date Recorded Body height Provider Name an d Address Organization Details Last Updated DateTime 10/25/2024 160.02 cm Erick Chepe [place] [facility] [place] 10/25/2024 10:09:11 Date Recorded Systolic blood pressure Diastolic blood pressure Provider Name and Address Organization Details Last Updated DateTime 08/01/2024 144 mm[Hg] 87 mm[Hg] CIELO MUJICA MD [address] [place] [address], [address], [place] [facility] 08/01/2024 11:43:49 Social History None recorded. Functional Status None recorded. Mental Status None recorded. Family History Nothing Reported. Medical History No medical history recorded. Gynecological HistoryNo gynecological history recorded. Obstetrics History GPAL:G 0 P 0 0 0 0 Past Encounters Encounter ID Performer Location Encounter Start Date Encounter Closed Date Diagnosis/Indication Diagnosis SNOMED-CT Code Diagnosis ICD10 Code Diagnosis Note [id number] CIELO POP MD [facility] [address] [address] 08/01/2024 10:53:32 08/01/2024 11:45:34 Hypertrophy of nasal turbinates 60985766 J34.3 Chronic pharyngitis 1400 04 J31.2 Allergic rhinitis 479831 04 J30.9 Examinatio n shows turbinate hypertroph y, mild goiter and a normal larynx. Suggest a trial of Astelin nasal spray and allergy skin testing. If no improvemen t and workup is negative consider CT of the sinuses. Goiter 0262989 E04.9 Seasonal a llergic rhinitis 122637417 J30.2 Non-allergic rhinitis 31 57934934 01 J31.0 [id number] [facility] ZHENG [facility] [address] [place] [address] [place] [address] 08/15/2024 08:56:40 08/15/2024 10:32:07 Allergic rhinitis 05569262 J30.9 [id number] WARNER LEVINE PA-C [facility] [address] [address] 10/25/2024 10:07:31 10/25/2024 10:58:29 Allergic rhinitis 12650205 J30.89 Nasal congestion 9574844 0 R09.81 [id number] CIELO POP MD [facility] [address] [place] [address] 11/21/2024 08:29:24 11/21/2024 16:25:14 Allergic rhinitis 90543075 J30.9 Examinatio n shows turbinate hypertroph y, mild goiter and a normal larynx. Suggest a trial of Astelin nasal spray and allergy skin testing. If no improvemen t and workup is negative consider CT of the sinuses. Hypertroph y of nasal turbinates 54445019 J34.3 Seasonal a llergic rhinitis 299258684 J30.2 [id number] CIELO POP MD [facility] [address] [address] 02/26/2025 08:59:47 02/26/2025 09:24:10 Allergic rhinitis 96613717 J30.9 Examinatio n shows turbinate hypertroph y, mild goiter and a normal larynx. Suggest a trial of Astelin nasal spray and allergy skin testing. If no improvemen t and workup is negative consider CT of the sinuses. Incompeten ce of nasal valve 768418471 J34.89 Deviated nasal septum 12 2582001 J34.2 Health Concerns Section Related Observation LastModified by Organization Detai ls LastModified Time None Recorded Concern Status LastModified by Organization Details LastModified Time None Recorded Advance Directives Directive None Recorded Payers Encounter Date Sequence Insurance Name Policy Number Policy Corley Covered Member ID Corley Member ID Guarantor Name 08/01/2024 1 [facility] NET PLAN (MEDICAID HMO) VIRGIL Ama Surowiec [id number] Ama Surowiec 08/15/2024 1 [facility] PL[facility] (MEDICAID HMO) [place] Ama Surowiec [id number] Ama Surowiec 10/25/2024 1 [facility] PLAN (MEDICAID HMO) [facility] Ama Surowiec [id number] Ama Surowiec 11/21/2024 1 [facility] PLAN (MEDICAID HMO) JOSE MARTIN Ruvalcaba [id number] Ama Alvaradoie 02/26/2025 1 [facility] (MEDICAID HMO) JOSE MARTIN Ruvalcaba [id number] Ama [facility] Notes Date Note Type Note Provider Name [...] Grave's disease and hyperthryoidism CIELO MUJICA MD 100 [facility],[address], [address], [facility] - [facility] 08/01/2024 11:43:53 10/25/2024 text/html 48-year-old valentina gardiner [...] headaches and PND. TONO MASTERSON MD 100 [facility],[address], [address], [facility] - [facility] 10/28/2024 09:08:45 11/21/2024 text/html f/u nasal conges tion. CT scan max thickening on right without [facility] obstructionNo a/f levels previous skin testing showed reactivity to Margarita and penicillium mold. Presently taking azelastine only. No asthma CIELO MUJICA MD [address] [facility],[address] [address], [place], [address], [facility] - [facility] 11/21/2024 08:50:31 02/26/2025 text/html Patient with chr onic nasal congestion with minimal allergy noted on testing. She had CT scan which showed trace right maxillary sinus thickening and mild septal deviation to the left side. She feels improved with Astelin and fluticasone nasal spray. CIELO MUJICA MD [address] [place] [address], [place], [address], [facility] - [facility] 02/26/2025 09:22:38 OBGyn Episode No OBEpisode recorded.
--- OUTSIDE RECORDS SUMMARY | 2025-03-28 08:28 | XMS_ITS | Clinical Summary ---
Author Organization [facility] Address [address] [place] [address] Care Team Providers Care Center Medical And Lab Director Name Role Phone Jany Lockett MD Primary Care Provider Social History Tobacco Use Types Packs/Day Years [...] age to complete this topic Care Teams Center Medical And Lab Director Relationship Specialty Start Date End Date Jany Lockett MD PCP - General 11/07/08
--- OUTSIDE RECORDS SUMMARY | 2025-03-28 08:28 | XMS_ITS ---
Author Organization [facility] Address [address] [place] [address] [address] [place] [address] Care Team Providers Care Junior Php Developer Name Role Phone Levy MCKAY, Jany Primary Care Provider NARENDRA Alas Unavailable [phone] REASON FOR VISIT ULTRA - 4 MONTH F/U BILAT OV CYSTS Encounters Encounter Location Date Provider Diagnosis [facility] [address] [place] [address] 10/04/2024 NARENDRA HOUGH Plan Of Treatment Next Appt Details Provider Name:NARENDRA Faith, 05/20/2025 08:00:00 AM, [address] [place] [address], [address], [place], [address], Progress Notes * RAGHU JAMEDOB:[birth year] (49 yo F)Acc No.[id number]:10/04/2024 PROGRESS NOTES Patient:?ZURIELIZABETHJOI VEGAIKA Provider:?NARENDRA HOUGH MD :1975???Age:48 Y???Sex:Female D ate:10/04/2024 Address:[address] [place], [place] [address] Pcp:Jany Lockett MD Subjective: * Chief Complaints: * ???1. ULTRA - 4 MONTH F/U BI LAT OV CYSTS. * Medical History:? Objective: * Vitals:? Assessment: Plan: * Treatment: * Images: Billing Information: * Visit Code:? * Procedure Codes:? * Electronic signature of NARENDRA HOUGH MD on 03/28/2025 at 08:28 AM EDT Sign off status: Pending * Provider:?NARENDRA HOUGH MD Date:?2023 Generated for Braulio lovell/Colby/Molinasmkerwin on:?03/28/2025 08:28 AM EDT
--- OUTSIDE RECORDS SUMMARY | 2025-03-28 08:28 | XMS_ITS ---
Author Organization [facility] Address [address] [place] [address] [address] [place] [address] Care Team Providers Care Rn Bsn Name Role Phone Jany Lockett MD Primary Care Provider NARENDRA Alas Unavailable [phone] REASON FOR VISIT ULTRA- LLQ PAIN Encounters Encounter Location Date Provider Diagnosis [facility] [address] [place] [address] 05/31/2024 NARENDRA HOUGH Plan Of Treatment Next Appt Details Provider Name:NARENDRA Faith, 05/20/2025 08:00:00 AM, [address] [place] [address], [address], [place], [address], Progress Notes * RAGHU JAMEDOB:[birth year] (49 yo F)Acc No.[id number]:05/31/2024 PROGRESS NOTES Patient:?JAME KRISHNAMURTHY Provider:?NARENDRA HOUGH MD :1975???Age:48 Y???Sex:Female D ate:05/31/2024 Address:[address] [place] [address] Pcp:Jany Lockett MD Subjective: * Chief Complaints: * ???1. ULTRA- LLQ PAIN. * Medical History:? Objective: * Vitals:? Assessment: Plan: * Treatment: * Images: Billing Information: * Visit Code:? * Procedure Codes:? * Electronic signature of NARENDRA HOUGH MD on 03/28/2025 at 08:28 AM EDT Sign off status: Pending * Provider:?NARENDRA HOUGH MD Date:?2023 Generated for Braulio lovell/Colby/Diane on:?03/28/2025 08:28 AM EDT
--- OUTSIDE RECORDS SUMMARY | 2025-03-28 08:28 | XMS_ITS | Patient Health Record ---
Author Organization [facility] Address [address] [address] Care Team Providers Care Shoe Parts Molder Name Role Phone Jany Lockett MD Primary Care Provider NARENDRA Alas Unavailable [phone] Allergies No Known Allergies Reason For Referral [...] Status W/U Status Risk Notes Problem Thyrotoxicosis (34300887) Thyrotoxicosis, unspecified without thyrotoxic crisis or storm (E05.90) Active confirmed Problem Abnormal uterine and vaginal bleeding, unspecified (N93.9) Active confirmed Problem Imaging result abnormal (640029476) Abnormal findings on diagnostic imaging of other specified body structures (R93.89) Active confirmed Vital Signs Temperature 97.1 degrees Fahrenheit 05/09/2024 Blood pressure diastolic 80 mm Hg 05/09/2024 Height 64 in 05/09/2024 Blood pressure systolic 122 mm Hg 05/09/2024 Weight 160 lbs 05/09/2024 BMI 27.46 kg/m2 05/09/2024 Encounters Encounter Location Date Provider Diagnosis Total [address] [address] 03/28/2024 NARENDRA HOUGH Encounter for gynecological examination (general) (routine) without abnormal findings Z01.419 ; Encounter for screening mammogram for malignant neoplasm of breast Z12.31 and Encounter for screening for infections with a predominantly sexual mode of transmission Z11.[address] [address] 05/31/2024 NARENDRA HOUGH [address] [address] 10/04/2024 NARENDRA HOUGH [address] [address] 05/09/2024 NARENDRA HOUGH Encounter for gynecological examination (general) (routine) without abnormal findings Z01.419 ; Encounter for screening mammogram for malignant neoplasm of breast Z12.31 and Left lower quadrant pain R10.[address] [address] 06/04/2024 NARENDRA HOUGH Assessments Encounter Date Diagnosis [...] Provider Name:NARENDRA Faith, 05/20/2025 08:00:00 AM, [address] [facility], [address], [place], [address], Insurance Providers Payer Name Payer Address Payer Phone Subscriber Number Group Number Insured Name Patient Relationship to Insured Coverage Start Date Coverage End Date [facility] [address] [address] [place] [id number] JAME KRISHNAMURTHY Self - patient is the [...]
--- OUTSIDE RECORDS SUMMARY | 2025-03-28 08:28 | XMS_ITS ---
Author Organization [facility] Address [address] [place] [address] [address] [place] [address] Care Team Providers Care Cocoa Room Operator Name Role Phone Jany Lockett MD Primary Care Provider NARENDRA Alas [phone] REASON FOR VISIT 4 MONTH ULTRA F/U Encounters Encounter Location Date Provider Diagnosis [facility] [address] [place] [address] 06/04/2024 NARENDRA HOUGH Plan Of Treatment Next Appt Details Provider Name:NARENDRA Faith, 05/20/2025 08:00:00 AM, [address] [place] [address], [facility] [address], [place], [address], Progress Notes * RAGHUJOIGALENDOB:[birth year] (48 yo F)Acc No.[id number]:06/04/2024 Patient:?JAME KRISHNAMURTHY :1975???Age:48 Y???Sex:Female Address:[address] [place] [address], [address] * true * Date:? Generated for Nathaliei liliya/Colby/eTransmitting on:?03/28/2025 08:28 AM EDT
[2025-03-28 10:06] LABS: Appearance Urine Clear; Color Urine Yellow; Glucose Urine UA Negative (Negative); Leukocyte Esterase Urine Moderate (2+) (Negative); Nitrite Urine Negative (Negative); PH 6.5 (5.0-9.0); UMIC TRIGGER UA YES; Urine Blood Trace (Negative); Urine Ketones Negative (Negative); Urine Protein Negative (Neg-Trace)
[2025-03-28 10:10] LABS: Bacteria Urine 1+ (None Seen); Hyaline Casts Urine 0-2 /LPF (0-2); WBC Urine 21-50 /HPF (0-5)
== END 2025-03-28 08:15 | disposition home or self-care (01) ==
LOC: HO.HMGCLDS 08:14
PROVIDERS: PCP Internal Medicine; Visit Provider Internal Medicine
DX: Z00.00 Encounter for general adult medical examination without abnormal findings (principal)
CPT/HCPCS: 81001

== ENCOUNTER 2025-04-18 08:30 | Outpatient (REF) | payer OTHER, SELFPAY ==
--- OUTSIDE RECORDS SUMMARY | 2025-04-18 08:40 | XMS_ITS | Patient Health Record ---
Author Organization [facility] Address [address] [address] Care Team Providers Care Hat Body Inspector Name Role Phone Jany Lockett MD Primary Care Provider NARENDRA Alas Unavailable [phone] Allergies No Known Allergies Reason For Referral [...] Status W/U Status Risk Notes Problem Thyrotoxicosis (03377549) Thyrotoxicosis, unspecified without thyrotoxic crisis or storm (E05.90) Active confirmed Problem Abnormal uterine bleeding (88800617967225) Abnormal uterine and vaginal bleeding, unspecified (N93.9) Active confirmed Problem Imaging result abnormal (741440099) Abnormal findings on diagnostic imaging of other specified body structures (R93.89) Active confirmed Vital Signs Temperature 97.1 degrees Fahrenheit 05/09/2024 Blood pressure diastolic 80 mm Hg 05/09/2024 Height 64 in 05/09/2024 Blood pressure systolic 122 mm Hg 05/09/2024 Weight 160 lbs 05/09/2024 BMI 27.46 kg/m2 05/09/2024 Encounters Encounter Location Date Provider Diagnosis Total [address] [address] 05/31/2024 NARENDRA HOUGH Total [address] [address] 10/04/2024 NARENDRA HOUGH [address] [address] 05/09/2024 NARENDRA HOUGH Encounter for gynecological examination (general) (routine) without abnormal findings Z01.419 ; Encounter for screening mammogram for malignant neoplasm of breast Z12.31 and Left lower quadrant pain R10.[address] [address] 06/04/2024 NARENDRA HOUGH Assessments Encounter Date Diagnosis (ICD Code) Assessment Notes Treatment Notes Treatment Clinical Notes Section Notes 05/09/2024 Encounter for gynecological examination (general) (routine) [...] Left lower quadrant pain (ICD-10 - R10.32) Plan Of Treatment Pending Test Test Name Order Date Sonohysterogram 12/22/2022 Test, Urine 01/20/2023 ULTRASOUND: PELVIC W/TRANSVAGINAL 2023 ULTRASOUND: PELVIC W/TRANSVAGINAL 2023 ULTRASOUND: PELVIC W/TRANSVAGINAL 2023 MM Digital Screening Mammogram 3D 2023 MM Digital Screening Mammogram 3D 2023 MM Digital Screening Mammogram 3D 2020 MM Digital Screening Mammogram 3D 2022 Diagnostic Right Mammo/Limited Right Ult rasound 12/22/2022 Next Appt Details Provider Name:NARENDRA Magdy Faith, 05/20/2025 08:00:00 AM, [address], [address], [place], [address], Insurance Providers Payer Name Payer Address Payer Phone Subscriber Number Group Number Insured Name Patient Relationship to Insured Coverage Start Date Coverage End Date [facility] [address] [address] [place] [id number] JAME KRISHNAMURTHY Self - patient is the [...]
[2025-04-18 10:25] LABS: Appearance Urine Turbid; Color Urine Yellow; Glucose Urine UA Negative (Negative); Leukocyte Esterase Urine Trace (Negative); Nitrite Urine Negative (Negative); PH 5.5 (5.0-9.0); Specific Gravity - Urine 1.025 (1.005-1.025); UMIC TRIGGER UA YES; Urine Blood Small (1+) (Negative); Urine Ketones Negative (Negative); Urine Protein Negative (Neg-Trace)
[2025-04-18 10:49] LABS: Bacteria Urine Trace (None Seen); Hyaline Casts Urine 0-2 /LPF (0-2); RBC Urine 0-2 /HPF (0-2)
== END 2025-04-18 08:31 | disposition home or self-care (01) ==
LOC: HO.HMGCLDS 08:30
PROVIDERS: PCP Internal Medicine; Visit Provider Internal Medicine
DX: N39.0 Urinary tract infection, site not specified (principal)
CPT/HCPCS: 81001; 87086

== ENCOUNTER 2025-05-28 08:12 | Outpatient (REF) | payer OTHER, SELFPAY ==
--- OUTSIDE RECORDS SUMMARY | 2025-05-28 08:15 | XMS_ITS | Clinical Summary ---
Author Organization [facility] Address [address] [place] [address] Care Team Providers Care Licensed Funeral Director And Embalmer Name Role Phone Jany Lockett MD Primary Care Provider [phone] Social History Tobacco Use Types Packs/Day Years [...] age to complete this topic Care Teams Licensed Funeral Director And Embalmer Relationship Specialty Start Date End Date Jany Lockett MD PCP - General 11/07/08
--- OUTSIDE RECORDS SUMMARY | 2025-05-28 08:15 | XMS_ITS | Patient Health Record ---
Author Organization [facility] Address [address] [address] Care Team Providers Care Utility Worker [place] Name Role Phone Jany Lockett MD Primary Care Provider NARENDRA Alas Unavailable [phone] Allergies No Known Allergies Reason For Referral No Information Medications Medication SIG (Take, Route, Frequency, Duration) Notes Start Date End Date Status Vitamin D 50 MCG (1999) 1 tablet Orally Once a day Active Iron Active ZyrTEC 10 MG 1 tablet Orally Once a day; Duration: 30 day(s) Active miSOPROStol 200 MCG as directed Orally 8-12 hrs prior to appointment; Duration: 1 days 05/20/2025 Active methIMAzole 5 MG 1 tablet Orally Once a day; Duration: 30 day(s) 1/2 Tab Daily Not-Taking Social [...] Problem Status W/U Status Risk Notes Problem Excessive and frequent menstruation (771962426) Excessive and frequent menstruation with regular cycle (N92.0) Active confirmed Problem Thyrotoxicosis (87790959) Thyrotoxicosis, unspecified without thyrotoxic crisis or storm (E05.90) Active confirmed Problem Abnormal uterine bleeding (61519703408295) Abnormal uterine and vaginal bleeding, unspecified (N93.9) Active confirmed Problem Imaging result abnormal (681166364) Abnormal findings on diagnostic imaging of other specified body structures (R93.89) Active confirmed Vital Signs Temperature 97.1 degrees Fahrenheit 05/20/2025 Blood pressure diastolic 72 mm Hg 05/20/2025 Height 64 in 05/20/2025 Blood pressure systolic 124 mm Hg 05/20/2025 Weight 153 lbs 05/20/2025 BMI 26.26 kg/m2 05/20/2025 Encounters Encounter Location Date Provider Diagnosis [facility] [place] [address] [employer] [address] [address] 05/31/2024 NARENDRA HOUGH [facility] [address] 10/04/2024 [address]OUGH [address] [address] 05/20/2025 NARENDRA HOUGH Encounter for gynecological examination (general) (routine) without abnormal findings Z01.419 ; Encounter for screening mammogram for malignant neoplasm of breast Z12.31 and Excessive and frequent menstruation with regular cycle N92.0 [place] [address] [employer] [address] [address] 06/04/2024 NARENDRA HOUGH Assessments Encounter Date Diagnosis (ICD Code) Assessment Notes Treatment Notes Treatment Clinical Notes Section Notes 05/20/2025 Encounter for gynecological examination (general) (routine) without [...] to keep colon screening up to date. 05/20/2025 Encounter for screening mammogram for malignant neoplasm of breast (ICD-10 - Z12.31) 05/20/2025 Excessive and frequent menstruation with regular cycle (ICD-10 - N92.0) Will evaluate for causes of menorrhagia, then determine treatment options. Plan Of Treatment Pending Test Test Name Order Date Sonohysterogram 12/22/2022 Sonohysterogram 05/20/2025 Test, Urine 01/20/2023 ULTRASOUND: PELVIC W/TRANSVAGINAL 2023 ULTRASOUND: PELVIC W/TRANSVAGINAL 2023 ULTRASOUND: PELVIC W/TRANSVAGINAL 2023 MM Digital Screening Mammogram 3D 2024 MM Digital Screening Mammogram 3D 2023 MM Digital Screening Mammogram 3D 2023 MM Digital Screening Mammogram 3D 2020 MM Digital Screening Mammogram 3D 2022 Diagnostic Right Mammo/Limited Right Ult rasound 12/22/2022 Next Appt Details Provider Name:NARENDRA Faith, 07/18/2025 02:20:00 PM, [employer], [address], [place], [address], Provider Name:NARENDRA Faith, 07/18/2025 02:30:00 PM, [address], [address], [place], [address], Provider Name:NARENDRA Faith, 05/22/2026 09:00:00 AM, [employer], [address], [place], [address], Insurance Providers Payer Name Payer Address Payer Phone Subscriber Number Group Number Insured Name Patient Relationship to Insured Coverage Start Date Coverage End Date [facility] [address] [address] [place] [id number] JAME KRISHNAMURTHY Self - patient is the [...]
--- OUTSIDE RECORDS SUMMARY | 2025-05-28 08:15 | XMS_ITS | Data Portability ---
Author Organization [place] [facility] [place] [facility], [facility]ergy Address [address] [place] [address] Care Team Providers Care Employment Legal Assistant Name Role Phone LINDA AREVALO Primary Care [...] She will follow-up to review the results. [email or web address] Not available 10/25/2024 11:10:26 11/21/2024 11/21/2024 Patient [...] reduction at some point in the future [email or web address] Not available 11/21/2024 08:49:10 Plan of Treatment Reminders Order Date Submit Date Provider Last Modified By Organization Details Last Modified Time Details Appointments None recorded. Lab None recorded. Referral None recorded. Procedures allergy testing, skin prick (PROC) 2023 024 [email or web address] Not available 4 09:11:10 intradermal allergy skin testing (PROC) 2023 024 [email or web address] Not available 4 09:11:17 pulmonary function test procedure (PROC) 2023 024 [email or web address] Not available 4 09:11:25 pulse oximetry (PROC) 2023 024 [email or web address] Not available 4 09:11:32 Surgeries None recorded. Imaging CT, sinuses, w/o contrast - follow up with 2023 [place] [facility], [address] [place] [address], [place], [address], 03:42:17 Medication Orders azelastine 137 mcg (0.1 %) nasal spray 2023 [facility][id number], [address] [place], [address], 4 08:49:49 fluticasone propionate 50 mcg/actuati on nasal spray,suspe nsion 2023 [facility][id number], [address] [place], [address], 4 08:49:49 azelastine 137 mcg (0.1 %) nasal spray 2023 024 [facility][id number], [address] [place], [address], 11:40:46 Patient TargetsNo targets recorded. Patient Instructions Encounter Date Encounter Id Patient Instructions Last Modified By Organization Details Last Modified Time 08/15/2024 [id number] Nursing Documentation for Allergy Testing: Ordering Provider Dr. Mujica Weight:157lbs: kg: PFT Yes With Bronchodilator no approval needed to proceed with allergy testing? ok'd testing History of Asthma:No Asthma Meds: Last used: Asthma exacerbated by: Chance that : No Fear of needles: No Regular medications reviewed in Computer: Yes Medication allergies: NKDA Antihistamine use: Yes Medications used: ganesh and azelastine Food Allergies: no Any foods make your mouth feeling itchy: No If yes: History of severe reaction where had to go to ER? No If yes details: Type of heat in home: Radiator Pets: Yes If yes: dog Smoker: Never If former smoker-how much / day for how long When quit years ago Smoking now-how much /day for how long Occupation/Social History: [employer] Symptoms having: Runny Nose If other: Frequency Year Round Spirometry Contraindications: Heart attack in the last 3 months: No Major surgery in last 3 months: No Detached retina(serious eye issues) in last 2 months: No Hospitilization in last month: No Proceed with PFT Yes approval needed: No Nursing Notes: Pt tolerated test well Yes Benadryl cream to test sites No Patient became syncopal-placed in supine position No Large reactions to MQT, reschedule IDT for a different date No Other: Written by: MIKEY Zheng Not available 08/15/2024 09:28:14 02/26/2025 [id number] Patient with chronic nasal congestion with minimal [...] compl ete No observ ation record ed[place] [facility] [place] [facility] [id number] 08/15/2024 10:18:09 11/04/20 24 11/01/2024 CT, sinus es, w/o contr ast No observ ation record ed. [email or web address] [facility] [address], [address], 11/07/2024 13:00:13 11/04/20 24 11/01/2024 CT, sinus es, w/o contr ast No observ ation record ed. [email or web address] [facility] [address], [address], 11/07/2024 16:10:22 Result Notes None recorded. Problems Name Problem SNOMED Code Status Onset Date Resolution Date Notes Provider Name and Address Organization Details Recorded Time Hypertrophy of nasal turbinates 23057226 Active 2023 CIELO BURT MD [address] [place] [address], [place], [address], [facility] 4 11:37:07 Chronic pharyngitis 894031 Active 2023 CIELO BURT MD [address] [place] [address], [place], [address], [facility] 4 11:37:12 Allergic rhinitis 00981825 Active 2023 CIELO BURT MD [address] [place] [address], [place], [address], [facility] 4 11:39:36 Goiter 6433223 Active 2023 CIELO BURT MD [address] [place] [address], [place], [address], [facility] 4 11:39:59 Seasonal allergic rhinitis 772890110 Active 2023 CIELO BURT MD 100 [facility], E [facility], [place], [address], [facility] 4 11:40:25 Non-allergi c rhinitis 275410838653 Active 2023 CIELO BURT MD 100 [facility], E [facility], [place], [address], [facility] 4 11:40:25 Nasal congestion 63718821 Active 2023 WARNER LEVINE PA-C 100 [facility],[place] [address], [place], [address], [facility] 4 11:08:20 Chronic sinusitis 02482658 Active 2023 WARNER LEVINE PA-C 100 [facility], [address] [facility], [place], [address], [facility] 4 12:59:37 Incompetenc e of nasal valve 317318375 Active 2024 CIELO BURT MD 100 [facility], E [facility], [place], [address], [facility] 5 09:21:46 Deviated nasal septum 579612221 Active 2024 CIELO BURT MD 100 [facility], [address], [place], [address], [facility] 5 09:21:50 Problem Notes None recorded. Procedures Surgical History Date Name Laterality Status Provider Name and Address Organization Details Recorded Time 08/15/20 24 Allergy Testing-Full completed MIKEY ZHENG [facility], [place], [address], [facility] 08/15/2024 10:01:14 08/01/20 24 Fiberoptic Laryngoscopy (Comprehensive) completed CIELO MUJICA MD 100 [facility] [address], [address], [place] [facility] 08/01/2024 11:39:05 excision of uterine polyp completed Alexa Florian [place] [facility] 02/26/2025 09:06:55 Imaging Results None recorded. Procedure Notes None recorded. Medical Equipment None [...] propionate 50 mcg/actuati on nasal spray,suspe nsion [place] 1 spray every day by intranasa l [...] Details Last Updated DateTime 02/26/2025 160.02 cm 16467 g Alexa Florian [place] [facility] 02/26/2025 09:06:19 Date Recorded Systolic blood pressure Diastolic blood pressure Provider Name and Address Organization Details Last Updated DateTime 08/01/2024 144 mm[Hg] 87 mm[Hg] CIELO MUJICA MD [address] [facility] [place] [facility],[address], [address], [place] [facility] 08/01/2024 11:43:49 Date Recorded Body height Body mass index (BMI) Body weight Heart rate Oxygen saturation Oxygen saturation in Arterial blood by Pulse oximetry Systolic blood pressure Diastolic blood pressure Provider Name and Address Organization Details Last Updated DateTime 4 160.02 cm 27.8 kg/m2 82890 g 80 /min 98 % 98 % 123 mm[Hg] 78 mm[Hg] [facility], [facility] 100 [facility], E [facility], [place], [address], [place] [facility] [place] [facility] 4 09:15:04 Date Recorded Body height Provider Name an d Address Organization Details Last Updated DateTime 10/25/2024 160.02 cm Erick Mo [place] [facility] [place] [facility] 10/25/2024 10:09:11 Social History None recorded. Functional Status None recorded. Mental Status None recorded. Family History Nothing Reported. Medical History No medical history recorded. Gynecological HistoryNo gynecological history recorded. Obstetrics History GPAL:G 0 P 0 0 0 0 Past Encounters Encounter ID Performer Location Encounter Start Date Encounter Closed Date Diagnosis/Indication Diagnosis SNOMED-CT Code Diagnosis ICD10 Code Diagnosis Note [id number] CIELO POP MD [facility] [address] [address] 08/01/2024 10:53:32 08/01/2024 11:45:34 Hypertrophy of nasal turbinates 68754105 J34.3 Chronic pharyngitis 1400 04 J31.2 Allergic rhinitis 163783 04 J30.9 Examinatio n shows turbinate hypertroph y, mild goiter and a normal larynx. Suggest a trial of Astelin nasal spray and allergy skin testing. If no improvemen t and workup is negative consider CT of the sinuses. Goiter 4226919 E04.9 Seasonal a llergic rhinitis 607073350 J30.2 Non-allergic rhinitis 31 23973879 01 J31.0 [id number] NEVAEH LADAN, [facility] 100 [facility],[address] [place] [address] 08/15/2024 08:56:40 08/15/2024 10:32:07 Allergic rhinitis 58926820 J30.9 [id number] WARNER LEVINE PA-C [facility] [address] [address] 10/25/2024 10:07:31 10/25/2024 10:58:29 Allergic rhinitis 45365486 J30.89 Nasal congestion 1138854 0 R09.81 [id number] CIELO POP MD [facility] [address] [address] 11/21/2024 08:29:24 11/21/2024 16:25:14 Allergic rhinitis 46756099 J30.9 Examinatio n shows turbinate hypertroph y, mild goiter and a normal larynx. Suggest a trial of Astelin nasal spray and allergy skin testing. If no improvemen t and workup is negative consider CT of the sinuses. Hypertroph y of nasal turbinates 25861377 J34.3 Seasonal a llergic rhinitis 663332135 J30.2 [id number] CIELO PPO MD [facility] [address] [address] 02/26/2025 08:59:47 02/26/2025 09:24:10 Allergic rhinitis 78765898 J30.9 Examinatio n shows turbinate hypertroph y, mild goiter and a normal larynx. Suggest a trial of Astelin nasal spray and allergy skin testing. If no improvemen t and workup is negative consider CT of the sinuses. Incompeten ce of nasal valve 510328226 J34.89 Deviated nasal septum 12 0263911 J34.2 Health Concerns Section Related Observation LastModified by Organization Detai ls LastModified Time None Recorded Concern Status LastModified by Organization Details LastModified Time None Recorded Advance Directives Directive None Recorded Payers Insurance Date Sequence Insurance Name Policy Number Policy Corley Covered Member ID Corley Member ID Guarantor Name 02/26/2025 1 [facility] (MEDICAID HMO) JOSE MARTIN Aguiar [id number] Ama Aguiar Notes Date Note Type Note Provider Name [...] disease and hyperthryoidism CIELO MUJICA MD [address],[place] [facility], [place], [address], [facility] [place] [facility] 08/01/2024 11:43:53 10/25/2024 text/html 48-year-old femchris gardiner presents for follow-up of nasal congestion. She underwent allergy testing and started trial of azelastine. She notes improvement in nasal congestion with Astelin. Does still have concerns about change in taste where things will sometimes taste salty or sweet when she is not eating. FOL was benign at previous visit. Denies headaches and PND. TONO MASTERSON MD [address] [facility],[place] [facility], [place], [address], [facility] [place] [facility] 10/28/2024 09:08:45 11/21/2024 text/html f/u nasal conges tion. CT scan max thickening on right without [facility] obstructionNo a/f levels previous skin testing showed reactivity to Margarita and penicillium mold. Presently taking azelastine only. No asthma CIELO MUJICA MD [address],[place] [facility], [place], [address], [facility] [place] [facility] 11/21/2024 08:50:31 02/26/2025 text/html Patient with chr onic nasal congestion with minimal allergy noted on testing. She had CT scan which showed trace right maxillary sinus thickening and mild septal deviation to the left side. She feels improved with Astelin and fluticasone nasal spray. CIELO MUJICA MD [address] [facility] [address], [place], [address], [facility] [place] [facility] 02/26/2025 09:22:38 OBGyn Episode No OBEpisode recorded.
[2025-05-28 10:05] LABS: MANUAL DIFF FLAG NO
[2025-05-28 10:14] LABS: Hematocrit 35.4 % (37.0-47.0); Hemoglobin 11.7 g/dl (12.0-16.0); Imm Gran Pct Auto 0.0 % (0.0-0.4); Mean Corpuscular HGB Conc 33.1 g/dl (31.0-35.0); Mean Corpuscular Hemoglobin 28.5 pg (27.0-33.0); Mean Corpuscular Volume 86.1 fL (80.0-98.0); Platelet Count 184 X10*3/uL (160-400); Red Blood Count 4.11 X10*6/uL (4.20-5.50); White Blood Count 3.9 X10*3/uL (4.8-10.8)
[2025-05-28 10:15] LABS: Imm Gran Abs Auto 0.00 X10*3/uL (0.00-0.03); Lymphocytes Absolute Auto 1.5 X10*3/uL (1.2-4.9); NRBC Abs Auto 0.000 X10*3/uL (0.0-0.012); NRBC Pct Auto 0.0 /100WBC (0.0-0.2)
[2025-05-28 10:25] LABS: Iron 41 mcg/dL (30-160); Percent Iron Saturation 14 % (15-50); Total Iron Binding Capacity 286 mcg/dL (228-428); Unsaturated Iron Binding 245 ug/dL
[2025-06-02 01:33] LABS: Vitamin D 25-OH, D2 <4 ng/mL; Vitamin D 25-OH, D3 36 ng/mL; Vitamin D 25-OH, Total 36 ng/mL (30-100)
== END 2025-05-28 08:13 | disposition home or self-care (01) ==
LOC: HO.HMGCLDS 08:12
PROVIDERS: PCP Internal Medicine; Visit Provider Internal Medicine
DX: Z00.00 Encounter for general adult medical examination without abnormal findings (principal); D64.9 Anemia, unspecified; E05.00 Thyrotoxicosis with diffuse goiter without thyrotoxic crisis or storm
CPT/HCPCS: 36415; 82306; 83540; 84443; 85025

== ENCOUNTER 2025-06-05 07:56 | Outpatient (REF) | payer OTHER, SELFPAY ==
--- OUTSIDE RECORDS SUMMARY | 2025-06-05 08:00 | XMS_ITS | Patient Health Record ---
Author Organization [facility] Address [address] [address] Care Team Providers Care Supply Chain Generalist Name Role Phone Jany Lockett MD Primary Care Provider NARENDRA Alas Unavailable [phone] Allergies No Known Allergies Reason For Referral [...] Risk Notes Problem Excessive and frequent menstruation (204558005) Excessive and frequent menstruation with regular cycle (N92.0) Active confirmed Problem Thyrotoxicosis (62868008) Thyrotoxicosis, unspecified without thyrotoxic crisis or storm (E05.90) Active confirmed Problem Abnormal uterine bleeding (25268290558314) Abnormal uterine and vaginal bleeding, unspecified (N93.9) Active confirmed Problem Imaging result abnormal (404452169) Abnormal findings on diagnostic imaging of other specified body structures (R93.89) Active confirmed Vital Signs Temperature 97.1 degrees Fahrenheit 05/20/2025 Blood pressure diastolic 72 mm Hg 05/20/2025 Height 64 in 05/20/2025 Blood pressure systolic 124 mm Hg 05/20/2025 Weight 153 lbs 05/20/2025 BMI 26.26 kg/m2 05/20/2025 Encounters Encounter Location Date Provider Diagnosis [facility] [employer] [place] [address] [place] [address] 10/04/2024 NARENDRA HOUGH Total [employer] [place] [address] [address] [facility] [address] [place] [address] 05/20/2025 NARENDRA HOUGH Encounter for gynecological examination (general) (routine) without abnormal findings Z01.419 ; Encounter for screening mammogram for malignant neoplasm of breast Z12.31 and Excessive and frequent menstruation with regular cycle N92.0 Assessments Encounter Date Diagnosis (ICD Code) Assessment [...] Details Provider Name:NARENDRA Faith, 07/18/2025 02:20:00 PM, [address], [place], [address], Provider Name:NARENDRA Faith, 07/18/2025 02:30:00 PM, [address], [address], [place], [address], Provider Name:NARENDRA Faith, 05/22/2026 09:00:00 AM, [address], [place], [address], Insurance Providers Payer Name Payer Address Payer Phone Subscriber Number Group Number Insured Name Patient Relationship to Insured Coverage Start Date Coverage End Date [facility] [address] [address] [place] [id number] JAME KRISHNAMURTHY Self - patient is the [...]
--- OUTSIDE RECORDS SUMMARY | 2025-06-05 08:00 | XMS_ITS | Clinical Summary ---
Author Organization [facility] Address [address] [place] [address] Care Team Providers Care Maternity Floor Supervisor Name Role Phone Jany Lockett MD Primary Care Provider [phone] Social History Tobacco Use Types Packs/Day Years [...] Vaccine ( - 2023-2 5 season) 2024 Colorectal Cancer Screening: Colonoscopy 09/28/2024 Depression Screening 09/28/2024 HIV Screening 09/28/2024 Hepatitis C Screening 09/28/2024 Social Influencers of Health Screening 09/28/2024 Influenza Vaccine (#1) 2025 HIB Vaccines Aged Out No longer [...] 5 Years) and At-Risk Patients (6 to 49 Years) Aged Out No longer eligible b ased on patient's age to complete this topic RSV Immunization Patients Un iraj 20 months Aged Out No longer eligible b ased on patient's age to complete this topic Varicella Vaccines Aged Out No longer eligible based on patient's age to complete this topic Care Teams Maternity Floor Supervisor Relationship Specialty Start Date End Date Jany Lockett MD PCP - General 11/07/08
== END 2025-06-05 07:57 | disposition home or self-care (01) ==
LOC: HO.MAMMO 07:56
PROVIDERS: PCP Internal Medicine; Visit Provider Internal Medicine
DX: Z12.31 Encounter for screening mammogram for malignant neoplasm of breast (principal)
CPT/HCPCS: 77063; 77067

== ENCOUNTER → 2025-06-05 08:00 | Outpatient (BNV) | payer OTHER, SELFPAY | PROVIDERS: PCP Internal Medicine; Visit Provider Radiology Body Imaging | DX: Z12.31 Encounter for screening mammogram for malignant neoplasm of breast (principal) | CPT/HCPCS: 77063; 77067 ==

== ENCOUNTER 2025-09-18 08:08 | Outpatient (REF) | payer OTHER, SELFPAY ==
--- OUTSIDE RECORDS SUMMARY | 2025-09-18 08:30 | XMS_ITS | Clinical Summary ---
Author Organization [facility] Address [address] [place] [address] Care Team Providers Care Cat Swamper Name Role Phone Jany Lockett MD Primary Care Provider [phone] Social History Tobacco Use Types Packs/Day Years [...] Last Done Comments Breast Cancer Screening 1977 Colorectal Cancer Screening: Colonoscopy 1977 DTaP,Tdap,and Td Vaccines (1 - Tdap) 1996 Hepatitis B Vaccines (1 of 3 - 19+ 3-dose series) 1996 Cervical Cancer Screening: P ap Smear 1998 HIV Screening 09/28/2024 Hepatitis C Screening 09/28/2024 Social Influencers of Health Screening 09/28/2024 Depression Screening 11/27/2024 COVID-19 Vaccine ( - 2023-2 5 season) 2025 Influenza Vaccine (#1) 2025 RSV Immunization Adult Patie nts (1 - 1-dose 75+ series) 2052 HIB Vaccines Aged Out No longer eligi [...] age to complete this topic Care Teams Cat Swamper Relationship Specialty Start Date End Date Jany Lockett MD PCP - General 11/07/08
[2025-09-18 10:31] LABS: MANUAL DIFF FLAG NO
[2025-09-18 10:39] LABS: Hematocrit 39.8 % (37.0-47.0); Hemoglobin 13.3 g/dl (12.0-16.0); Imm Gran Abs Auto 0.01 X10*3/uL (0.00-0.03); Imm Gran Pct Auto 0.2 % (0.0-0.4); Lymphocytes Absolute Auto 1.6 X10*3/uL (1.2-4.9); Mean Corpuscular HGB Conc 33.4 g/dl (31.0-35.0); Mean Corpuscular Hemoglobin 29.7 pg (27.0-33.0); Mean Corpuscular Volume 88.8 fL (80.0-98.0); NRBC Abs Auto 0.000 X10*3/uL (0.0-0.012); NRBC Pct Auto 0.0 /100WBC (0.0-0.2); Platelet Count 196 X10*3/uL (160-400); Red Blood Count 4.48 X10*6/uL (4.20-5.50); White Blood Count 4.7 X10*3/uL (4.8-10.8)
[2025-09-18 10:56] LABS: Iron 92 mcg/dL (30-160); Percent Iron Saturation 29 % (15-50); Total Iron Binding Capacity 318 mcg/dL (228-428); Unsaturated Iron Binding 226 ug/dL
[2025-09-18 11:21] LABS: Folate 10.6 ng/mL (> or = 4.0); Vitamin B12 275 pg/mL (200-900)
[2025-09-18 11:45] LABS: Free T4 (Free Thyroxine) 0.85 ng/dL (0.71-1.85)
== END 2025-09-18 08:09 | disposition home or self-care (01) ==
LOC: HO.HMGCLDS 08:08
PROVIDERS: PCP Internal Medicine; Visit Provider Internal Medicine
DX: E05.00 Thyrotoxicosis with diffuse goiter without thyrotoxic crisis or storm (principal); D64.9 Anemia, unspecified
CPT/HCPCS: 36415; 82607; 82746; 83540; 84439; 84443; 84481; 85025